=== PATIENT | male | born 1950 ===

== ENCOUNTER 2020-02-25 17:53 | Inpatient (IN) | payer MEDICARE ==
[2020-02-25] MEDS ORDERED: SODIUM CHLORIDE 0.9% 1000 ML 1,000 ML IV ONE ×2 (19:38→22:20)
--- NOTE | 2020-02-25 19:42 | Emergency Department Report ---
ED Altered Mental Status HPI - General Chief Complaint: Altered Mental Status Stated Complaint: AMS PUI?: No Time Seen by Provider: 02/25/20 19:37 Source: patient, EMS Mode of arrival: Stretcher Limitations: Altered Mental Status - History of Present Illness Initial Comments: Patient is a 69-year-old male that presents emergency room for altered mental status. Patient was brought over from a local long term named [facility]. The staff at [facility] called EMS because the patient become less verbal and more altered over the last 2 days. Patient was brought in by EMS. EMS states the patient was initially hypoxic and placed on 2 L. Patient declined is been going on for 2 days. Patient has been at [facility] for 2 weeks. Patient has a past medical history of asthma, bipolar and schizophrenia. Patient is af ebrile. Patient states he has been sweating a lot. Patient denies fever. Patient denies cough. Patient denies fall. Patient denies headache. Patient denies blurry vision. Patient states he is tired. Patient complains of fatigue. Patient denies shortness of breath. Patient denies chest pain. Patient states he is compliant with his psych medications. Patient denies recent travel. Patient denies recent international travel. Patient denies exposure to the novel coronavirus. Patient denies sick contacts. Patient denies fever and chills. Patient denies cough. Patient denies diar roberto. Patient denies coming in contact with anybody with symptoms of the novel coronavirus. Complaint: altered mental status, confusion -: Sudden Severity: severe Consistency of Symptoms: waxing and waning Associated Symptoms: diaphoresis - Related Data Allergies Allergy/AdvReac Type Severity Reaction Status Date / Time No Known Allergies Allergy Unverified 02/25/20 21:12 ED Review of Systems ROS: Stated complaint: AMS Other details as noted in HPI Comment: Unobtainable due to pts medical conditions ED Past Medical Hx - Past Medical History Previous Medical History?: Yes Hx Psychiatric Treatment: Yes (schizo/bipolar) Hx Asthma: Yes - Surgical History Past Surgical History?: No Hx Coronary Stent: No - Family History Family history: no significant - Social History Smoking Status: Current Every Day Smoker Substance Use Type: None ED Physical Exam - General Limitations: Altered Mental Status General appearance: alert, in no apparent distress - Head Head exam: Present: atraumatic, normocephalic - Eye Eye exam: Present: normal appearance - ENT ENT exam: Present: mucous membranes moist - Neck Neck exam: Present: normal inspection - Respiratory Respiratory exam: Present: normal lung sounds bilaterally. Absent: respiratory distress - Cardiovascular Cardiovascular Exam: Present: regular rate, normal rhythm. Absent: systolic murmur, diastolic murmur, rubs, gallop - GI/Abdominal GI/Abdominal exam: Present: soft, normal bowel sounds - Rectal Rectal exam: Present: deferred - Extremities Exam Extremities exam: Present: normal inspection - Back Exam Back exam: Present: normal inspection - Neurological Exam Neurological exam: Present: alert, oriented X3 - Psychiatric Psychiatric exam: Present: flat affect - Skin Skin exam: Present: warm, dry, intact, normal color. Absent: rash - Assessment Assessment Interval: Baseline - Level of Consciousness 1a. Level of Consciousness: alert/keenly responsive - LOC Questions 1b. LOC Questions: answers both correctly - LOC Command 1c. LOC Commands: performs tasks correctly - Best Gaze 2. Best Gaze: normal - Visual 3. Visual: no visual loss - Facial Palsy 4. Facial Palsy: normal symmetrical movement - Motor Arm 5a. Motor Arm Left: no drift 5b. Motor Arm Right: no drift - Motor Leg 6a. Motor Leg Left: no drift 6b. Motor Leg Right: no drift - Limb Ataxia 7. Limb Ataxia: absent - Sensory 8. Sensory: normal - Best Language 9. Best Language: no aphasia - Dysarthria 10. Dysarthria: normal - Extinction and Inattention 11. Extinction/Inattention: no abnormality - Scoring Total Score: 0 Stroke Severity: No Stroke Symptoms ED Course Vital Signs 02/25/20 02/25/20 02/25/20 19:33 19:42 20:00 Temperature 98.6 F Pulse Rate 94 H 91 H 86 Respiratory 40 H 41 H 35 H Rate Blood Pressure 143/79 Blood Pressure 143/79 [right arm] O2 Sat by Pulse 96 94 Oximetry 02/25/20 02/25/20 02/25/20 21:00 22:00 23:22 Temperature Pulse Rate 90 82 81 Respiratory 38 H 29 H 34 H Rate Blood Pressure 139/85 137/75 139/85 Blood Pressure [right arm] O2 Sat by Pulse 96 88 98 Oximetry 02/25/20 02/26/20 23:36 00:00 Temperature Pulse Rate 82 85 Respiratory 34 H 33 H Rate Blood Pressure 145/88 137/85 Blood Pressure [right arm] O2 Sat by Pulse 98 98 Oximetry - Reevaluation(s) Reevaluation #1: Patient answering questions appropriately. Patient is lethargic. Patient is arousable and is currently oriented x3. Patient's oxygen is at 90 to 93%. Patient placed on O2. 02/25/20 20:24 Reevaluation #2: Patient's oxygen sat is better. Patient resting in bed. Patient arousable. I discussed all results with patient. I discussed plan of care with patient. Patient agrees with plan of care and admission. Patient to be admitted to the hospitalist service. 02/25/20 22:24 - Consultations Consultation #1: Hospitalist consulted for admission. Hospitalist to admit patient. 02/25/20 22:28 Consultation #2: ID consult placed. 02/25/20 22:35 - Lab Data Result diagrams: 02/25/20 20:16 02/25/20 23:03 Lab Results 02/25/20 02/25/20 02/25/20 Range/Units 20:16 20:16 20:16 WBC 6.3 (4.5-11.0) K/mm3 RBC 4.26 (3.65-5.03) M/mm3 Hgb 11.7 L (11.8-15.2) gm/dl Hct 35.3 L (35.5-45.6) % MCV 83 L (84-94) fl MCH 27 L (28-32) pg MCHC 33 (32-34) % RDW 17.2 H (13.2-15.2) % Plt Count 208 (140-440) K/mm3 Lymph % (Auto) 8.0 L (13.4-35.0) % [place] % (Auto) 8.5 H (0.0-7.3) % Eos % (Auto) 0.0 (0.0-4.3) % Baso % (Auto) 0.1 (0.0-1.8) % Lymph # 0.5 L (1.2-5.4) K/mm3 [place] # 0.5 (0.0-0.8) K/mm3 Eos # 0.0 (0.0-0.4) K/mm3 Baso # 0.0 (0.0-0.1) K/mm3 Seg Neutrophils % 83.4 H (40.0-70.0) % Seg Neutrophils # 5.3 (1.8-7.7) K/mm3 Sodium 135 L (137-145) mmol/L Potassium 3.9 (3.6-5.0) mmol/L Chloride 101.7 (98-107) mmol/L Carbon Dioxide 21 L (22-30) mmol/L Anion Gap 16 mmol/L BUN 22 H (9-20) mg/dL Creatinine 1.3 (0.8-1.5) mg/dL Estimated GFR 55 ml/min BUN/Creatinine Ratio 17 % Glucose 176 H (75-100) mg/dL Lactic Acid 1.60 (0.7-2.0) mmol/L Calcium 8.0 L (8.4-10.2) mg/dL Total Bilirubin 0.50 (0.1-1.2) mg/dL AST 32 (5-40) units/L ALT 19 (7-56) units/L Alkaline Phosphatase 33 L (35-129) units/L Ammonia (25-60) umol/L Total Creatine Kinase 1034 H (55-170) units/L Troponin T < 0.010 (0.00-0.029) ng/mL Total Protein 5.9 L (6.3-8.2) g/dL Albumin 3.5 L (3.9-5) g/dL Albumin/Globulin Ratio 1.5 % Urine Color (Yellow) Urine Turbidity (Clear) Urine pH (5.0-7.0) Ur Specific [place] (1.003-1.030) Urine Protein (Negative) mg/dL Urine Glucose (UA) (Negative) mg/dL Urine Ketones (Negative) mg/dL Urine Blood (Negative) Urine Nitrite (Negative) Urine Bilirubin (Negative) Urine Urobilinogen (<2.0) mg/dL Ur Leukocyte Esterase (Negative) Urine WBC (Auto) (0.0-6.0) /HPF Urine RBC (Auto) (0.0-6.0) /HPF Urine Mucus /HPF Urine Yeast (Budding) /HPF Salicylates (2.8-20.0) mg/dL Acetaminophen (10.0-30.0) ug/mL Plasma/Serum Alcohol (0-0.07) % 02/25/20 02/25/2020 Range/Units 20:16 20:16 20:16 WBC (4.5-11.0) K/mm3 RBC (3.65-5.03) M/mm3 Hgb (11.8-15.2) gm/dl Hct (35.5-45.6) % MCV (84-94) fl MCH (28-32) pg MCHC (32-34) % RDW (13.2-15.2) % Plt Count (140-440) K/mm3 Lymph % (Auto) (13.4-35.0) % [place] % (Auto) (0.0-7.3) % Eos % (Auto) (0.0-4.3) % Baso % (Auto) (0.0-1.8) % Lymph # (1.2-5.4) K/mm3 [place] # (0.0-0.8) K/mm3 Eos # (0.0-0.4) K/mm3 Baso # (0.0-0.1) K/mm3 Seg Neutrophils % (40.0-70.0) % Seg Neutrophils # (1.8-7.7) K/mm3 Sodium (137-145) mmol/L Potassium (3.6-5.0) mmol/L Chloride (98-107) mmol/L Carbon Dioxide (22-30) mmol/L Anion Gap mmol/L BUN (9-20) mg/dL Creatinine (0.8-1.5) mg/dL Estimated GFR ml/min BUN/Creatinine Ratio % Glucose (75-100) mg/dL Lactic Acid (0.7-2.0) mmol/L Calcium (8.4-10.2) mg/dL Total Bilirubin (0.1-1.2) mg/dL AST (5-40) units/L ALT (7-56) units/L Alkaline Phosphatase (35-129) units/L Ammonia 42.0 (25-60) umol/L Total Creatine Kinase (55-170) units/L Troponin T (0.00-0.029) ng/mL Total Protein (6.3-8.2) g/dL Albumin (3.9-5) g/dL Albumin/Globulin Ratio % Urine Color (Yellow) Urine Turbidity (Clear) Urine pH (5.0-7.0) Ur Specific [place] (1.003-1.030) Urine Protein (Negative) mg/dL Urine Glucose (UA) (Negative) mg/dL Urine Ketones (Negative) mg/dL Urine Blood (Negative) Urine Nitrite (Negative) Urine Bilirubin (Negative) Urine Urobilinogen (<2.0) mg/dL Ur Leukocyte Esterase (Negative) Urine WBC (Auto) (0.0-6.0) /HPF Urine RBC (Auto) (0.0-6.0) /HPF Urine Mucus /HPF Urine Yeast (Budding) /HPF Salicylates < 0.3 L (2.8-20.0) mg/dL Acetaminophen < 5.0 L (10.0-30.0) ug/mL Plasma/Serum Alcohol (0-0.07) % 02/25/20 02/25/20 Range/Units 20:16 21:12 WBC (4.5-11.0) K/mm3 RBC (3.65-5.03) M/mm3 Hgb (11.8-15.2) gm/dl Hct (35.5-45.6) % MCV (84-94) fl MCH (28-32) pg MCHC (32-34) % RDW (13.2-15.2) % Plt Count (140-440) K/mm3 Lymph % (Auto) (13.4-35.0) % [place] % (Auto) (0.0-7.3) % Eos % (Auto) (0.0-4.3) % Baso % (Auto) (0.0-1.8) % Lymph # (1.2-5.4) K/mm3 [place] # (0.0-0.8) K/mm3 Eos # (0.0-0.4) K/mm3 Baso # (0.0-0.1) K/mm3 Seg Neutrophils % (40.0-70.0) % Seg Neutrophils # (1.8-7.7) K/mm3 Sodium (137-145) mmol/L Potassium (3.6-5.0) mmol/L Chloride (98-107) mmol/L Carbon Dioxide (22-30) mmol/L Anion Gap mmol/L BUN (9-20) mg/dL Creatinine (0.8-1.5) mg/dL Estimated GFR ml/min BUN/Creatinine Ratio % Glucose (75-100) mg/dL Lactic Acid (0.7-2.0) mmol/L Calcium (8.4-10.2) mg/dL Total Bilirubin (0.1-1.2) mg/dL AST (5-40) units/L ALT (7-56) units/L Alkaline Phosphatase (35-129) units/L Ammonia (25-60) umol/L Total Creatine Kinase (55-170) units/L Troponin T (0.00-0.029) ng/mL Total Protein (6.3-8.2) g/dL Albumin (3.9-5) g/dL Albumin/Globulin Ratio % Urine Color Yellow (Yellow) Urine Turbidity Clear (Clear) Urine pH 6.0 (5.0-7.0) Ur Specific [place] 1.023 (1.003-1.030) Urine Protein 100 mg/dl (Negative) mg/dL Urine Glucose (UA) 50 (Negative) mg/dL Urine Ketones Neg (Negative) mg/dL Urine Blood Lg (Negative) Urine Nitrite Neg (Negative) Urine Bilirubin Neg (Negative) Urine Urobilinogen 4.0 (<2.0) mg/dL Ur Leukocyte Esterase Tr (Negative) Urine WBC (Auto) 24.0 H (0.0-6.0) /HPF Urine RBC (Auto) 2.0 (0.0-6.0) /HPF Urine Mucus Few /HPF Urine Yeast (Budding) Few /HPF Salicylates (2.8-20.0) mg/dL Acetaminophen (10.0-30.0) ug/mL Plasma/Serum Alcohol < 0.01 (0-0.07) % - EKG Data -: EKG Interpreted by [facility] EKG shows normal: sinus rhythm, axis, intervals, QRS complexes, ST-T waves Rate: normal - Radiology Data Radiology results: report reviewed, image reviewed interpreted by me: CHEST 1 VIEW INDICATION: Altered Mental Status. COMPARISON: None. FINDINGS: Support devices: None. Heart: Normal. Lungs/Pleura: There is focal airspace disease in the inferior right upper lobe adjacent to the minor fissure. Minimal right infrahilar opacities are noted as well. The left lung is clear. No pleural effusion or pneumothorax. IMPRESSION: 1. Patchy right lung airspace disease, as above, is concerning for pneumonia. CT ABDOMEN AND PELVIS WITHOUT IV CONTRAST INDICATION: fever. uti.. COMPARISON: CT 12/04/2018. TECHNIQUE: All CT scans at this facility use dose modulation, automated exposure control, iterative reconstruction or weight based dosing, when appropriate, to reduce radiation dose to as low as reasonably achievable. FINDINGS: Lung Bases: There is a small right pleural effusion with compressive atelectasis in the dependent right lung base. Left lung base is clear. Skeletal System: No acute abnormality. ABDOMEN: Liver: No significant abnormality. Gallbladder: There is a 1.3 cm gallstone. The gallbladder is partially contracted. There is mild gallbladder wall thickening and pericholecystic inflammation. Bile Ducts: No significant abnormality. Pancreas: No significant abnormality. Spleen: Mildly enlarged. Adrenals: Bilateral adrenal nodules are stable. Right Kidney: No significant abnormality. Left Kidney: No significant abnormality. Upper GI tract: Gastrostomy tube is noted in satisfactory position. Lymph Nodes: No significant adenopathy. Aorta: No significant abnormality. Additional Findings: No significant abnormality. PELVIS: Colon: No acute abnormality. Urinary Bladder and Distal Ureters: There is mild bladder wall thickening with minimal perivesical stranding. There is a trace amount of gas in the nondependent bladder. Appendix: No significant abnormality. Lymph Nodes: No significant adenopathy. Additional Findings: Prostate is mildly enlarged. IMPRESSION: 1. Mild bladder wall thickening and perivesical stranding could be seen in cystitis. There is a trace amount of gas in the bladder which could be related to infection or recent instrumentation. 2. Cholelithiasis. Gallbladder shows mild wall thickening and mild pericholecystic stranding. Correlate clinically for acute cholecystitis. No common duct dilatation is seen. 3. Additional, incidental findings as above. - Medical Decision Making Patient is a 69-year-old male that presents emergency room from his long term via EMS for altered mental status. Patient's only complaint was diaphoresis. Patient is lethargic. Patient had an altered mental status work-up to include chest x-ray, labs and CT of the head. CT of the head was negative for acute findings. Patient's chest x-ray shows right-sided pneumonia. Patient's labs were essentially unremarkable except for elevated inflammatory markers and UTI. Patient had the COVID protocols started. ID was consulted. Patient given cefepime and fluids. Patient also found to be hypoxic and was placed on oxygen at initial evaluation. - Differential Diagnosis ams. diaphoresis, uti, pna. Critical Care Time: Yes Critical care time in (mins) excluding proc time.: 35 Critical care attestation.: If time is entered above; I have spent that time in minutes in the direct care of this critically ill patient, excluding procedure time. Critical Care Time: 35 minutes ED Disposition Clinical Impression: Diaphoresis, Dehydration, Elevated CK, Hypoxia Pneumonia Qualifiers: Pneumonia type: due to unspecified organism Laterality: unspecified laterality Lung location: unspecified part of lung Qualified Code(s): J18.9 - Pneumonia, unspecified organism Altered mental state Qualifiers: Altered mental status type: unspecified Qualified Code(s): R41.82 - Altered mental status, unspecified UTI (urinary tract infection) Qualifiers: Urinary tract infection type: acute cystitis Hematuria presence: with hematuria Qualified Code(s): N30.01 - Acute cystitis with hematuria Disposition: 09 OP ADMIT IP TO THIS HOSP Is pt being admited?: Yes Does the pt Need Aspirin: No Condition: Critical Time of Disposition: 22:35
--- NOTE | 2020-02-25 20:13 | XRay Report ---
CHEST 1 VIEW INDICATION: Altered Mental Status. COMPARISON: None. FINDINGS: Support devices: None. Heart: Normal. Lungs/Pleura: There is focal airspace disease in the inferior right upper lobe adjacent to the minor fissure. Minimal right infrahilar opacities are noted as well. The left lung is clear. No pleural eff usion or pneumothorax. IMPRESSION: 1. Patchy right lung airspace disease, as above, is concerning for pneumonia. Signer Name: Adonay Castillo MD Signed: 02/25/2020 8:08 PM Workstation Name: [id number]
[2020-02-25 20:37] LABS: Basophils % (Auto) 0.1 % (0.0-1.8); Hematocrit 35.3 % (35.5-45.6); Hemoglobin 11.7 gm/dl (11.8-15.2); Lymphocytes # (Auto) 0.5 K/mm3 (1.2-5.4); Mean Corpuscular HGB Conc 33 % (32-34); Mean Corpuscular Volume 83 fl (84-94); Monocytes # (Auto) 0.5 K/mm3 (0.0-0.8); Monocytes % (Auto) 8.5 % (0.0-7.3); Platelet Count 208 K/mm3 (140-440); Red Blood Count 4.26 M/mm3 (3.65-5.03); Red Cell Distribution Width 17.2 % (13.2-15.2)
[2020-02-25 20:47] LABS: Alanine Aminotransferase 19 units/L (7-56); Albumin 3.5 g/dL (3.9-5); BUN/Creatinine Ratio 17; Blood Urea Nitrogen 22 mg/dL (9-20); Hemolysis Index 4
--- NOTE | 2020-02-25 21:26 | Cat Scan Report ---
CT HEAD WITHOUT CONTRAST INDICATION / CLINICAL INFORMATION: Altered Mental Status. TECHNIQUE: All CT scans at this location are performed using CT dose reduction for ALARA by means of automated e xposure control. COMPARISON: None available. FINDINGS: HEMORRHAGE: No evidence of intracranial hemorrhage or extra-axial fluid collection. EXTRA-AXIAL SPACES: Cortical sulci and sylvian fissures are mildly enlarged reflecting a degree of pa renchymal volume loss which is within somewhat greater than expected for the patient's age of 69 year s. Basilar cisterns have an unremarkable appearance. VENTRICULAR SYSTEM: The third and lateral ventricles are mildly enlarged reflecting presence of mild parenchymal volume loss. CEREBRAL PARENCHYMA: Periventricular and deep white matter lucency is observed. This is probably seco ndary to microvascular ischemic change. There is no indication of recent infarction. No areas of ence phalomalacia are identified. MIDLINE SHIFT OR HERNIATION: There is no mass effect. CEREBELLUM / BRAINSTEM: Brainstem and cerebellum have an unremarkable appearance. INTRACRANIAL VESSELS: No abnormalities are identified on this noncontrast head CT examination. ORBITS: visualized portions of the orbits have an unremarkable appearance. SOFT TISSUES of HEAD: No significant abnormality. CALVARIUM: Evaluation of bone windows reveals no abnormalities. PARANASAL SINUSES / MASTOID AIR CELLS: Paranasal sinuses are free from inflammatory mucosal disease. Opacification of multiple mastoid air cells is noted. In addition there is abnormal attenuation in th e epitympanic region of the left middle ear cavity. Possibility of mastoiditis and otitis media shoul d be considered. IMPRESSION: 1. No acute intracranial abnormality. 2. Opacification of multiple mastoid air cells and increased attenuation in the epitympanic region of the left middle ear cavity. Consider the possibility of mastoiditis and left-sided otitis media. Signer Name: Milton Falk MD Signed: 02/25/2020 9:22 PM Workstation Name: [id number]
[2020-02-25 21:28] LABS: Amphetamine Screen,Urine PRESUMPTIVE NEGATIVE; Benzodiazepines Screen,Urine PRESUMPTIVE NEGATIVE; Cannabinoid Screen,Urine PRESUMPTIVE NEGATIVE; Cocaine Screen,Urine PRESUMPTIVE NEGATIVE; Methadone Screen,Urine PRESUMPTIVE NEGATIVE; Opiate Screen,Urine PRESUMPTIVE NEGATIVE
[2020-02-25 21:30] LABS: Bilirubin,Urine NEG (Negative); Blood,Urine LG (Negative); Color,Urine Yellow (Yellow); Mucus,Urine FEW /HPF
[2020-02-25] MEDS ORDERED: CEFEPIME/NS 2 GM/100 ML 2 GM/100 ML BAG IV ONE ×2 (22:20→23:27)
[2020-02-25] MEDS ORDERED: SODIUM CHLORIDE 0.9% 1000 ML 1,000 ML ONE (23:27)
[2020-02-25] MEDS ORDERED: MAGNESIUM HYDROXIDE (MOM) ORAL LIQD UDC PO PRN (23:51)
[2020-02-25] MEDS ORDERED: ONDANSETRON 4 MG/2 ML INJ IV PRN (23:51)
[2020-02-26 00:41] LABS: C-Reactive Protein 5.5 mg/dL (0.00-1.30)
[2020-02-26] MEDS: SODIUM CHLORIDE 0.9% 1000 ML 1,000 ML IV SCH ×2 (00:44→09:59)
[2020-02-26] MEDS ORDERED: ALBUTEROL 2.5 MG/3 ML NEBU IH PRN (02:29)
[2020-02-26] MEDS ORDERED: ALBUTEROL 2.5 MG/3 ML NEBU IH ONE (02:32)
--- NOTE | 2020-02-26 04:04 | History and Physical Report ---
History of Present Illness Date of examination: 02/26/20 Date of admission: 02/25/20 22:37 Chief complaint: Altered mental status History of present illness: 69-year-old male resident of [facility] brought into the emergency room today for altered mental status. Staff of the [facility] was said to have called EMS because patient has had some changes in his mental status. Patient was said to have become less responsive over the past 2 days. He has significant past medical history of asthma schizophrenia and bipolar disorder. He denies any fever or chills, denies any cough or shortness of breath, no chest pain, denies any headache or dizziness and denies any recent fall. He denies any sick contacts and no recent travel, denies any contact with anyone with COVID-19 Work-up in the emergency room was however significant for pneumonia and UTI. He has been started on empiric IV antibiotics. Past History Past Medical History: other (History of asthma, schizophrenia) Past Surgical History: No surgical history Social history: smoking (Delay), other (Resident of a [facility]) Medications and Allergies Allergies Allergy/AdvReac Type Severity Reaction Status Date / Time No Known Allergies Allergy Unverified 02/25/20 21:12 Home Medications Medication Instructions Recorded Confirmed Last Taken Type Divalproex ER [DepaKOTE ER] 500 mg PO QDAY 02/26/20 02/26/20 Unknown History Omeprazole 20 mg PO BID 02/26/20 02/26/20 Unknown History Active Meds: Active Medications Acetaminophen (Tylenol) 650 mg PO Q4H PRN PRN Reason: Pain MILD(1-3)/Fever >100.5/RAMOS Albuterol (Proventil) 2.5 mg IH Q4HRT PRN PRN Reason: Shortness Of Breath Sodium Chloride (Nacl 0.9% 1000 Ml) 1,000 mls @ 125 mls/hr IV DIRECT SABA Last Admin: 02/26/20 00:44 Dose: 125 mls/hr Documented by: Ceftriaxone Sodium (Rocephin/Ns 2 Gm/100 Ml) 2 gm in 100 mls @ 200 mls/hr IV Q24HR SABA; Protocol Azithromycin 500 mg/ Sodium (Chloride) 250 mls @ 250 mls/hr IV Q24HR SABA; Protocol Magnesium Hydroxide (Milk Of Magnesia) 30 ml PO Q4H PRN PRN Reason: Constipation Ondansetron HCl (Zofran) 4 mg IV Q8H PRN PRN Reason: Nausea And Vomiting Sodium Chloride (Sodium Chloride Flush Syringe 10 Ml) 10 ml IV BID SABA Sodium Chloride (Sodium Chloride Flush Syringe 10 Ml) 10 ml IV PRN PRN PRN Reason: LINE FLUSH Review of Systems Constitutional: no fever, no chills Ears, nose, mouth and throat: no headache, no vertigo Respiratory: cough, shortness of breath Gastrointestinal: no abdominal pain, no nausea, no vomiting, no diarrhea Genitourinary Male: no dysuria, no hematuria Musculoskeletal: no neck pain, no low back pain Integumentary: no rash, no pruritis Neurological: change in mentation, no headaches Exam - Constitutional Vitals: Temp Pulse Resp BP Pulse Ox 98.6 F 85 28 H 137/85 97 02/25/20 19:33 02/26/20 02:37 02/26/20 02:37 02/26/20 00:00 02/26/20 01:35 General appearance: Present: no acute distress, well-nourished - EENT Eyes: Present: PERRL, EOM intact ENT: hearing intact, clear oral mucosa, dentition normal - Neck Neck: Present: supple, normal ROM - Respiratory Respiratory effort: normal Respiratory: bilateral: diminished - Cardiovascular Rhythm: regular Heart Sounds: Present: S1 & S2 - Extremities Extremities: no ischemia, pulses intact, No edema, Full ROM Peripheral Pulses: within normal limits - Abdominal General gastrointestinal: Present: soft, non-tender, non-distended, normal bowel sounds - Integumentary Integumentary: Present: clear, warm, dry - Musculoskeletal Musculoskeletal: strength equal bilaterally - Psychiatric Psychiatric: appropriate mood/affect, intact judgment & insight, cooperative - Neurologic Neurologic: CNII-XII intact, moves all extremities HEART Score - HEART Score Troponin: Troponin T < 0.010 ng/mL (0.00-0.029) 02/25/20 20:16 Results - Labs CBC & Chem 7: 02/26/20 03:57 02/26/20 03:57 Labs: Abnormal lab results 02/25/20 02/25/20 02/25/20 Range/Units 20:16 20:16 20:16 Hgb 11.7 L (11.8-15.2) gm/dl Hct 35.3 L (35.5-45.6) % MCV 83 L (84-94) fl MCH 27 L (28-32) pg RDW 17.2 H (13.2-15.2) % Lymph % (Auto) 8.0 L (13.4-35.0) % [place] % (Auto) 8.5 H (0.0-7.3) % Lymph # 0.5 L (1.2-5.4) K/mm3 Seg Neutrophils % 83.4 H (40.0-70.0) % D-Dimer (0-234) ng/mlDDU Sodium 135 L (137-145) mmol/L Carbon Dioxide 21 L (22-30) mmol/L BUN 22 H (9-20) mg/dL Glucose 176 H (75-100) mg/dL Calcium 8.0 L (8.4-10.2) mg/dL Alkaline Phosphatase 33 L (35-129) units/L Lactate Dehydrogenase (91-180) units/L Total Creatine Kinase 1034 H (55-170) units/L C-Reactive Protein (0.00-1.30) mg/dL Total Protein 5.9 L (6.3-8.2) g/dL Albumin 3.5 L (3.9-5) g/dL Urine WBC (Auto) (0.0-6.0) /HPF Salicylates < 0.3 L (2.8-20.0) mg/dL Acetaminophen (10.0-30.0) ug/mL 02/25/20 02/25/20 02/25/20 Range/Units 20:16 21:12 23:03 Hgb (11.8-15.2) gm/dl Hct (35.5-45.6) % MCV (84-94) fl MCH (28-32) pg RDW (13.2-15.2) % Lymph % (Auto) (13.4-35.0) % [place] % (Auto) (0.0-7.3) % Lymph # (1.2-5.4) K/mm3 Seg Neutrophils % (40.0-70.0) % D-Dimer (0-234) ng/mlDDU Sodium (137-145) mmol/L Carbon Dioxide (22-30) mmol/L BUN (9-20) mg/dL Glucose 144 H (75-100) mg/dL Calcium (8.4-10.2) mg/dL Alkaline Phosphatase (35-129) units/L Lactate Dehydrogenase 308 H (91-180) units/L Total Creatine Kinase (55-170) units/L C-Reactive Protein 5.50 H (0.00-1.30) mg/dL Total Protein (6.3-8.2) g/dL Albumin (3.9-5) g/dL Urine WBC (Auto) 24.0 H (0.0-6.0) /HPF Salicylates (2.8-20.0) mg/dL Acetaminophen < 5.0 L (10.0-30.0) ug/mL 02/25/20 Range/Units 23:03 Hgb (11.8-15.2) gm/dl Hct (35.5-45.6) % MCV (84-94) fl MCH (28-32) pg RDW (13.2-15.2) % Lymph % (Auto) (13.4-35.0) % [place] % (Auto) (0.0-7.3) % Lymph # (1.2-5.4) K/mm3 Seg Neutrophils % (40.0-70.0) % D-Dimer 1216.06 H (0-234) ng/mlDDU Sodium (137-145) mmol/L Carbon Dioxide (22-30) mmol/L BUN (9-20) mg/dL Glucose (75-100) mg/dL Calcium (8.4-10.2) mg/dL Alkaline Phosphatase (35-129) units/L Lactate Dehydrogenase (91-180) units/L Total Creatine Kinase (55-170) units/L C-Reactive Protein (0.00-1.30) mg/dL Total Protein (6.3-8.2) g/dL Albumin (3.9-5) g/dL Urine WBC (Auto) (0.0-6.0) /HPF Salicylates (2.8-20.0) mg/dL Acetaminophen (10.0-30.0) ug/mL Assessment and Plan - Patient Problems (1) Pneumonia Current Visit: Yes Status: Acute Qualifiers: Pneumonia type: due to unspecified organism Laterality: unspecified laterality Lung location: unspecified part of lung Qualified Code(s): J18.9 - Pneumonia, unspecified organism Plan to address problem: Patient placed on empiric IV antibiotics. We await blood culture result. (2) UTI (urinary tract infection) Current Visit: Yes Status: Acute Qualifiers: Urinary tract infection type: acute cystitis Hematuria presence: with hematuria Qualified Code(s): N30.01 - Acute cystitis with hematuria Plan to address problem: We await urine culture result and continue empiric IV antibiotics. (3) Altered mental state Current Visit: Yes Status: Acute Qualifiers: Altered mental status type: unspecified Qualified Code(s): R41.82 - Altered mental status, unspecified Plan to address problem: Possibly secondary to the pneumonia and UTI. Will monitor mental status (4) DVT prophylaxis Current Visit: Yes Status: Acute Plan to address problem: Patient placed on subcutaneous heparin. (5) Full code status Current Visit: Yes Status: Acute (6) Hypoxia Current Visit: Yes Status: Acute
[2020-02-26 05:33] LABS: Basophils % (Auto) 0.2 % (0.0-1.8); Eosinophils % (Auto) 0.1 % (0.0-4.3); Hematocrit 32.8 % (35.5-45.6); Hemoglobin 10.9 gm/dl (11.8-15.2); Lymphocytes # (Auto) 0.6 K/mm3 (1.2-5.4); Lymphocytes % (Auto) 10.3 % (13.4-35.0); Mean Corpuscular HGB Conc 33 % (32-34); Mean Corpuscular Volume 83 fl (84-94); Monocytes # (Auto) 0.3 K/mm3 (0.0-0.8); Monocytes % (Auto) 5.7 % (0.0-7.3); Platelet Count 199 K/mm3 (140-440); Red Blood Count 3.95 M/mm3 (3.65-5.03); Red Cell Distribution Width 17.6 % (13.2-15.2)
[2020-02-26 05:48] LABS: BUN/Creatinine Ratio 18; Blood Urea Nitrogen 18 mg/dL (9-20); Hemolysis Index 2
[2020-02-26 05:53] LABS: INR 1.09 (0.87-1.13)
--- NOTE | 2020-02-26 09:37 | Consultation ---
History of Present Illness - Reason for Consult Consult date: 02/26/20 r/o COVID Requesting physician: PERFECTO GUY III - History of Present Illness 69 years old male with history of asthma, bipolar disorder and schizophrenia, resident of a shelter, admitted on 02/25/2020 due to 48 hours history of altered mental status with confusion. EMS found patient hypoxic at the scene and placing on 2 L nasal cannula. Patient is unable to provide any history, currently alert but very confused. On arrival, temperature 98.6, HR 94, RR 40, O2 96, BP 113/79. WBC 6.3. Hg 11.7. Platelets 208. Creatinine 1.3. CRP 5.5. LDH 308. Ferritin 117. D-dimer 1216. UDS negative. COVID test positive. Chest x-ray right patchy infiltrates. CT of the head left opacification of the mastoid and increased attenuation of the left tympanic membrane cavity. UA with 24 white blood cells on trace leukocyte esterase. Urine culture with usual skin tanya 10-100K Review of system: Unable to obtain Past History Past Medical History: other (History of asthma, schizophrenia) Past Surgical History: No surgical history Social history: smoking (Delay), other (Resident of a shelter) Medications and Allergies Allergies Allergy/AdvReac Type Severity Reaction Status Date / Time No Known Allergies Allergy Unverified 02/25/20 21:12 Home Medications Medication Instructions Recorded Confirmed Last Taken Type Divalproex ER [DepaKOTE ER] 500 mg PO QDAY 02/26/20 02/26/20 Unknown History Omeprazole 20 mg PO BID 02/26/20 02/26/20 Unknown History Active Meds: Active Medications Acetaminophen (Tylenol) 650 mg PO Q4H PRN PRN Reason: Pain MILD(1-3)/Fever >100.5/RAMOS Albuterol (Proventil) 2.5 mg IH Q4HRT PRN PRN Reason: Shortness Of Breath Azithromycin (Zithromax) 500 mg PO QDAY SABA Stop: 03/01/20 10:01 Divalproex Sodium (Depakote Er) 500 mg PO QDAY SABA Heparin Sodium (Porcine) (Heparin) 5,000 unit SUB-Q Q8HR SABA Sodium Chloride (Nacl 0.9% 1000 Ml) 1,000 mls @ 125 mls/hr IV DIRECT SABA Last Admin: 02/26/20 00:44 Dose: 125 mls/hr Documented by: Ceftriaxone Sodium (Rocephin/Ns 2 Gm/100 Ml) 2 gm in 100 mls @ 200 mls/hr IV Q24HR SABA; Protocol Azithromycin 500 mg/ Sodium (Chloride) 250 mls @ 250 mls/hr IV Q24HR SABA; Protocol Stop: 02/26/20 18:00 Magnesium Hydroxide (Milk Of Magnesia) 30 ml PO Q4H PRN PRN Reason: Constipation Ondansetron HCl (Zofran) 4 mg IV Q8H PRN PRN Reason: Nausea And Vomiting Pantoprazole Sodium (Protonix) 20 mg PO BID SABA Sodium Chloride (Sodium Chloride Flush Syringe 10 Ml) 10 ml IV BID SABA Sodium Chloride (Sodium Chloride Flush Syringe 10 Ml) 10 ml IV PRN PRN PRN Reason: LINE FLUSH Physical Examination - Physical Exam Narrative exam: General appearance: Alert confused does not follow commands Eyes: Pupils equal reactive bilaterally HENT: Atraumatic; oropharynx limited Lungs: Clear to auscultation CV: RRR Abdomen: Soft nontender Extremities: No edema Skin: No rash. Scrotum with large edema Psych: alert confused Neuro: Slightly sleepy confused - Constitutional Vitals: Vital Signs Temp Pulse Resp BP Pulse Ox 98.6 F 85 28 H 137/85 97 02/25/20 19:33 02/26/20 02:37 02/26/20 02:37 02/26/20 00:00 02/26/20 01:35 Temperature -Last 24 Hours Temperature 98.6 F Results - Labs CBC & Chem 7: 02/26/20 03:57 02/26/20 03:57 Labs: Abnormal lab results 02/25/20 02/25/20 02/25/20 Range/Units 20:16 20:16 20:16 Hgb 11.7 L (11.8-15.2) gm/dl Hct 35.3 L (35.5-45.6) % MCV 83 L (84-94) fl MCH 27 L (28-32) pg RDW 17.2 H (13.2-15.2) % Lymph % (Auto) 8.0 L (13.4-35.0) % Iron % (Auto) 8.5 H (0.0-7.3) % Lymph # 0.5 L (1.2-5.4) K/mm3 Seg Neutrophils % 83.4 H (40.0-70.0) % D-Dimer (0-234) ng/mlDDU Sodium 135 L (137-145) mmol/L Carbon Dioxide 21 L (22-30) mmol/L BUN 22 H (9-20) mg/dL Glucose 176 H (75-100) mg/dL Calcium 8.0 L (8.4-10.2) mg/dL Alkaline Phosphatase 33 L (35-129) units/L Lactate Dehydrogenase (91-180) units/L Total Creatine Kinase 1034 H (55-170) units/L C-Reactive Protein (0.00-1.30) mg/dL Total Protein 5.9 L (6.3-8.2) g/dL Albumin 3.5 L (3.9-5) g/dL Urine WBC (Auto) (0.0-6.0) /HPF Salicylates < 0.3 L (2.8-20.0) mg/dL Acetaminophen (10.0-30.0) ug/mL 02/25/20 02/25/20 02/25/20 Range/Units 20:16 21:12 23:03 Hgb (11.8-15.2) gm/dl Hct (35.5-45.6) % MCV (84-94) fl MCH (28-32) pg RDW (13.2-15.2) % Lymph % (Auto) (13.4-35.0) % Iron % (Auto) (0.0-7.3) % Lymph # (1.2-5.4) K/mm3 Seg Neutrophils % (40.0-70.0) % D-Dimer (0-234) ng/mlDDU Sodium (137-145) mmol/L Carbon Dioxide (22-30) mmol/L BUN (9-20) mg/dL Glucose 144 H (75-100) mg/dL Calcium (8.4-10.2) mg/dL Alkaline Phosphatase (35-129) units/L Lactate Dehydrogenase 308 H (91-180) units/L Total Creatine Kinase (55-170) units/L C-Reactive Protein 5.50 H (0.00-1.30) mg/dL Total Protein (6.3-8.2) g/dL Albumin (3.9-5) g/dL Urine WBC (Auto) 24.0 H (0.0-6.0) /HPF Salicylates (2.8-20.0) mg/dL Acetaminophen < 5.0 L (10.0-30.0) ug/mL 02/25/20 02/26/20 02/26/20 Range/Units 23:03 03:57 03:57 Hgb 10.9 L (11.8-15.2) gm/dl Hct 32.8 L (35.5-45.6) % MCV 83 L (84-94) fl MCH (28-32) pg RDW 17.6 H (13.2-15.2) % Lymph % (Auto) 10.3 L (13.4-35.0) % Iron % (Auto) (0.0-7.3) % Lymph # 0.6 L (1.2-5.4) K/mm3 Seg Neutrophils % 83.7 H (40.0-70.0) % D-Dimer 1216.06 H (0-234) ng/mlDDU Sodium (137-145) mmol/L Carbon Dioxide 20 L (22-30) mmol/L BUN (9-20) mg/dL Glucose 194 H (75-100) mg/dL Calcium 8.0 L (8.4-10.2) mg/dL Alkaline Phosphatase (35-129) units/L Lactate Dehydrogenase (91-180) units/L Total Creatine Kinase (55-170) units/L C-Reactive Protein (0.00-1.30) mg/dL Total Protein (6.3-8.2) g/dL Albumin (3.9-5) g/dL Urine WBC (Auto) (0.0-6.0) /HPF Salicylates (2.8-20.0) mg/dL Acetaminophen (10.0-30.0) ug/mL Assessment and Plan Cultures: Urine culture with usual skin tanya 10-100K Assessment: 69 years old male with history of asthma, bipolar disorder and schizophrenia, resident of a shelter, admitted on 02/25/2020 due to 48 hours history of altered mental status with confusion:: #Presumed COVID pneumonia: COVID test positive. There may be a component of bacterial pneumonia, pro-Justin 0.3. Chest x-ray with right patchy infiltrates. Inflammatory markers mildly elevated: Ferritin 117, d-dimer 1216, CRP 5.5. No evidence of severe COVID. Currently on 2 L nasal cannula oxygen #Acute encephalopathy: Likely due to COVID. CT shows possible left mastoiditis and left otitis media. #Left mastoiditis and left otitis media: Per CT #Mild UTI: Urine culture grew 10,000-100,000 colonies of usual skin tanya Recommendations: Continue COVID isolation precautions per [facility] protocol Continue ceftriaxone 2 g IV once a day and azithromycin 500 g IV once a day Obtain brain MRI Close monitor inflammatory markers for COVID, if ferritin over [address] Ledesma covering the weekend Will follow Linda Gottlieb MD Infectious Diseases [employer] [facility], [place], [facility] M [phone] O [phone]
[2020-02-26] MEDS: cefTRIAXone/NS 2 GM/100 ML 2 GM/100 ML BAG IV SCH (09:59)
[2020-02-26] MEDS ORDERED: AZITHROMYCIN 500 MG in SODIUM CHLORIDE 0.9% 250ML 250 ML IV SCH (10:00)
[2020-02-26] MEDS: DIVALPROEX ER 500 MG TAB PO SCH (10:00)
[2020-02-26] MEDS: PANTOPRAZOLE 20 MG TAB PO SCH ×2 (10:01→21:12)
[2020-02-26] MEDS: ACETAMINOPHEN 325 MG TAB PO PRN ×3 (11:39→21:30)
--- NOTE | 2020-02-26 13:28 | Progress Note ---
Assessment and Plan Assessment and plan: Sepsis. Etiology secondary to pneumonia and UTI. Follow-up blood and urine cultures. Right upper lobe pneumonia. Continue to follow serial chest x-ray and antibiotics. ID consulted. Acute hypoxemic respiratory failure. Etiology secondary to above. Continue O2 to maintain sats greater than 92%. BiPAP as clinically indicated. UTI. Continue IV antibiotics and follow-up urine cultures. Toxic metabolic encephalopathy. Etiology secondary to above. Continue to treat underlying cause. The high probability of a clinically significant, sudden or life threatening deterioration of the [respiratory and immunologic] system(s) required my full and direct attention, intervention and personal management. The aggregate critical care time was [32] minutes. This time is in addition to time spent p erforming reported procedures but includes the following: [x] Data Review and interpretation [x] Patient assessment and monitoring of vital signs [x] Documentation [x] Medication orders and management History Interval history: No new issues overnight. Hospitalist Physical - Constitutional Vitals: Temp Pulse Resp BP Pulse Ox 98.6 F 85 28 H 137/85 97 02/25/20 19:33 02/26/20 02:37 02/26/20 02:37 02/26/20 00:00 02/26/20 01:35 General appearance: Present: no acute distress, well-nourished - EENT Eyes: Present: PERRL, EOM intact ENT: hearing intact, clear oral mucosa, dentition normal - Neck Neck: Present: supple, normal ROM - Respiratory Respiratory effort: normal Respiratory: bilateral: CTA - Cardiovascular Rhythm: regular Heart Sounds: Present: S1 & S2. Absent: gallop, rub - Extremities Extremities: no ischemia, No edema, Full ROM - Abdominal General gastrointestinal: soft, non-tender, non-distended, normal bowel sounds - Integumentary Integumentary: Present: clear, warm, dry - Neurologic Neurologic: CNII-XII intact, moves all extremities HEART Score - HEART Score Troponin: Troponin T < 0.010 ng/mL (0.00-0.029) 02/25/20 20:16 Results - Labs CBC & Chem 7: 02/26/20 03:57 02/26/20 03:57 Labs: Laboratory Last Values WBC 6.0 K/mm3 (4.5-11.0) 02/26/20 03:57 RBC 3.95 M/mm3 (3.65-5.03) 02/26/20 03:57 Hgb 10.9 gm/dl (11.8-15.2) L 02/26/20 03:57 Hct 32.8 % (35.5-45.6) L 02/26/20 03:57 MCV 83 fl (84-94) L 02/26/20 03:57 MCH 28 pg (28-32) 02/26/20 03:57 MCHC 33 % (32-34) 02/26/20 03:57 RDW 17.6 % (13.2-15.2) H 02/26/20 03:57 Plt Count 199 K/mm3 (140-440) 02/26/20 03:57 Lymph % (Auto) 10.3 % (13.4-35.0) L 02/26/20 03:57 [place] % (Auto) 5.7 % (0.0-7.3) 02/26/20 03:57 Eos % (Auto) 0.1 % (0.0-4.3) 02/26/20 03:57 Baso % (Auto) 0.2 % (0.0-1.8) 02/26/20 03:57 Lymph # 0.6 K/mm3 (1.2-5.4) L 02/26/20 03:57 [place] # 0.3 K/mm3 (0.0-0.8) 02/26/20 03:57 Eos # 0.0 K/mm3 (0.0-0.4) 02/26/20 03:57 Baso # 0.0 K/mm3 (0.0-0.1) 02/26/20 03:57 Seg Neutrophils % 83.7 % (40.0-70.0) H 02/26/20 03:57 Seg Neutrophils # 5.0 K/mm3 (1.8-7.7) 02/26/20 03:57 PT 14.2 Sec. (12.2-14.9) 02/26/20 03:57 INR 1.09 (0.87-1.13) 02/26/20 03:57 D-Dimer 1216.06 ng/mlDDU (0-234) H 02/25/20 23:03 Sodium 139 mmol/L (137-145) 02/26/20 03:57 Potassium 3.8 mmol/L (3.6-5.0) 02/26/20 03:57 Chloride 105.6 mmol/L (98-107) 02/26/20 03:57 Carbon Dioxide 20 mmol/L (22-30) L 02/26/20 03:57 Anion Gap 17 mmol/L 02/26/20 03:57 BUN 18 mg/dL (9-20) 02/26/20 03:57 Creatinine 1.0 mg/dL (0.8-1.5) 02/26/20 03:57 Estimated GFR > 60 ml/min 02/26/20 03:57 BUN/Creatinine Ratio 18 % 02/26/20 03:57 Glucose 194 mg/dL (75-100) H 02/26/20 03:57 Lactic Acid 1.60 mmol/L (0.7-2.0) 02/25/20 20:16 Calcium 8.0 mg/dL (8.4-10.2) L 02/26/20 03:57 Ferritin 117.6 ng/mL (13.0-400.0) 02/25/20 23:03 Total Bilirubin 0.50 mg/dL (0.1-1.2) 02/25/20 20:16 AST 32 units/L (5-40) 02/25/20 20:16 ALT 19 units/L (7-56) 02/25/20 20:16 Alkaline Phosphatase 33 units/L (35-129) L 02/25/20 20:16 Ammonia 42.0 umol/L (25-60) 02/25/20 20:16 Lactate Dehydrogenase 308 units/L (91-180) H 02/25/20 23:03 Total Creatine Kinase 1034 units/L (55-170) H 02/25/20 20:16 Troponin T < 0.010 ng/mL (0.00-0.029) 02/25/20 20:16 C-Reactive Protein 5.50 mg/dL (0.00-1.30) H 02/25/20 23:03 Total Protein 5.9 g/dL (6.3-8.2) L 02/25/20 20:16 Albumin 3.5 g/dL (3.9-5) L 02/25/20 20:16 Albumin/Globulin Ratio 1.5 % 02/25/20 20:16 Procalcitonin 0.38 ng/mL (<0.15) 02/25/20 23:03 Urine Color Yellow (Yellow) 02/25/20 21:12 Urine Turbidity Clear (Clear) 02/25/20 21:12 Urine pH 6.0 (5.0-7.0) 02/25/20 21:12 Ur Specific [place] 1.023 (1.003-1.030) 02/25/20 21:12 Urine Protein 100 mg/dl mg/dL (Negative) 02/25/20 21:12 Urine Glucose (UA) 50 mg/dL (Negative) 02/25/20 21:12 Urine Ketones Neg mg/dL (Negative) 02/25/20 21:12 Urine Blood Lg (Negative) 02/25/20 21:12 Urine Nitrite Neg (Negative) 02/25/20 21:12 Urine Bilirubin Neg (Negative) 02/25/20 21:12 Urine Urobilinogen 4.0 mg/dL (<2.0) 02/25/20 21:12 Ur Leukocyte Esterase Tr (Negative) 02/25/20 21:12 Urine WBC (Auto) 24.0 /HPF (0.0-6.0) H 02/25/20 21:12 Urine RBC (Auto) 2.0 /HPF (0.0-6.0) 02/25/20 21:12 Urine Mucus Few /HPF 02/25/20 21:12 Urine Yeast (Budding) Few /HPF 02/25/20 21:12 Salicylates < 0.3 mg/dL (2.8-20.0) L 02/25/20 20:16 Urine Opiates Screen Presumptive negative 02/25/20 Unknown Urine Methadone Screen Presumptive negative 02/25/20 Unknown Acetaminophen < 5.0 ug/mL (10.0-30.0) L 02/25/20 20:16 Ur Barbiturates Screen Presumptive negative 02/25/20 Unknown Ur Phencyclidine Scrn Presumptive negative 02/25/20 Unknown Ur Amphetamines Screen Presumptive negative 02/25/20 Unknown U Benzodiazepines Scrn Presumptive negative 02/25/20 Unknown Urine Cocaine Screen Presumptive negative 02/25/20 Unknown U Marijuana (THC) Screen Presumptive negative 02/25/20 Unknown Drugs of Abuse Note Disclamer 02/25/20 Unknown Plasma/Serum Alcohol < 0.01 % (0-0.07) 02/25/20 20:16 Velasquez/IV: Voiding Method Condom Catheter IV Catheter Type [left ac] Peripheral IV Active Medications - Current Medications Current Medications: Generic Name Dose Route Start Last Admin Trade Name Freq PRN Reason Stop Dose Admin Acetaminophen 650 mg 02/25/20 23:51 02/26/20 11:39 Tylenol PO 650 mg Q4H PRN Administration Pain MILD(1-3)/Fever >100.5/RAMOS Albuterol 2.5 mg 02/26/20 02:29 Proventil IH Q4HRT PRN Shortness Of Breath Azithromycin 500 mg 02/27/20 10:00 Zithromax PO 03/01/20 10:01 QDAY SABA Divalproex Sodium 500 mg 02/26/20 10:00 02/26/20 10:00 Depakote Er PO 500 mg QDAY SABA Administration Heparin Sodium (Porcine) 5,000 unit 02/26/20 14:00 Heparin SUB-Q Q8HR SABA Sodium Chloride 1,000 mls @ 125 mls/hr 02/25/20 23:45 02/26/20 09:59 Nacl 0.9% 1000 Ml IV 125 mls/hr DIRECT SABA Administration Ceftriaxone Sodium 2 gm in 100 mls @ 200 mls/hr 02/26/20 10:00 02/26/20 09:59 Rocephin/Ns 2 Gm/100 Ml IV 200 mls/hr Q24HR SABA Administration Protocol Azithromycin 500 mg/ Sodium 250 mls @ 250 mls/hr 02/26/20 10:00 02/26/20 10:02 Chloride IV 02/26/20 18:00 250 mls/hr Q24HR SABA Administration Protocol Magnesium Hydroxide 30 ml 02/25/20 23:51 Milk Of Magnesia PO Q4H PRN Constipation Ondansetron HCl 4 mg 02/25/20 23:51 Zofran IV Q8H PRN Nausea And Vomiting Pantoprazole Sodium 20 mg 02/26/20 10:00 02/26/20 10:01 Protonix PO 20 mg BID SABA Administration Sodium Chloride 10 ml 02/26/20 10:00 02/26/20 10:01 Sodium Chloride Flush Syringe 10 Ml IV 10 ml BID SABA Administration Sodium Chloride 10 ml 05/14/20 23:51 Sodium Chloride Flush Syringe 10 Ml IV PRN PRN LINE FLUSH Nutrition/Malnutrition Assess - Dietary Evaluation Nutrition/Malnutrition Findings: Nutrition Notes Start: 02/26/20 12:55 Freq: Status: Active Protocol: Document 02/26/20 12:55 LM (Rec: 02/26/20 13:00 LM [email or web address]) Nutrition Notes Need for Assessment generated from: bit [email or web address],MST Initial or Follow up Brief Note Other Pertinent Diagnosis pneu, UTI, AMS, asthma, schizophrenia Current Diet regular Labs/Tests BG 194 Pertinent Medications NaCl at 125ml/hr KCl at 100ml/hr Height 5 ft 8 in Weight 101.7 kg [place] Body Weight (kg) 70.00 BMI 34.0 Weight Status Obese Subjective/Other Information RN screen for MST. Unable to reach pt 2x. Pt has weak environmental protection inspector strength. Reduced Electromatic Typist Strength Measurably Reduced (severe) Nutrition Intervention Follow-Up By: 02/29/20 Additional Comments F/U for assessment
[2020-02-26] MEDS: HEPARIN 5,000 UNIT/1 ML VIAL SUB-Q SCH ×2 (16:31→21:12)
[2020-02-27] MEDS: HEPARIN 5,000 UNIT/1 ML VIAL SUB-Q SCH ×3 (05:12→23:06)
[2020-02-27] MEDS: cefTRIAXone/NS 2 GM/100 ML 2 GM/100 ML BAG IV SCH (09:43)
[2020-02-27] MEDS: DIVALPROEX ER 500 MG TAB PO SCH (09:43)
[2020-02-27] MEDS: PANTOPRAZOLE 20 MG TAB PO SCH ×2 (09:43→23:06)
[2020-02-27] MEDS: AZITHROMYCIN 250 MG TAB PO SCH (09:43)
--- NOTE | 2020-02-27 11:47 | Progress Note ---
Assessment and Plan Assessment and plan: Sepsis. Etiology secondary to pneumonia and UTI. Follow-up blood and urine cultures. Right upper lobe pneumonia. Continue to follow serial chest x-ray and antibiotics. ID consulted. Acute hypoxemic respiratory failure. Etiology secondary to above. Continue O2 to maintain sats greater than 92%. BiPAP as clinically indicated. UTI. Continue IV antibiotics and follow-up urine cultures. Toxic metabolic encephalopathy. Etiology secondary to above. Continue to treat underlying cause. 02/27/2020. Continue COVID isolation precautions. Ceftriaxone and azithromycin IV per ID recommendations. MRI brain. Monitor inflammatory markers. D-dimer 1216, LDH 308, CRP 5.5 and ferritin 117. Patient currently with high flow nasal [id number] L/min FiO2 35%. Pulmonary consulted. History Interval history: No new issues overnight. Patient still with persistent fever Hospitalist Physical - Constitutional Vitals: Temp Pulse Resp BP Pulse Ox 98.5 F 96 H 18 162/81 94 02/27/20 05:06 02/27/20 05:06 02/27/20 05:06 02/27/20 05:06 02/27/20 10:49 General appearance: Present: no acute distress, well-nourished - EENT Eyes: Present: PERRL, EOM intact ENT: hearing intact, clear oral mucosa, dentition normal - Neck Neck: Present: supple, normal ROM - Respiratory Respiratory effort: normal Respiratory: bilateral: CTA - Cardiovascular Rhythm: regular Heart Sounds: Present: S1 & S2. Absent: gallop, rub - Extremities Extremities: no ischemia, No edema, Full ROM - Abdominal General gastrointestinal: soft, non-tender, non-distended, normal bowel sounds - Integumentary Integumentary: Present: clear, warm, dry - Neurologic Neurologic: CNII-XII intact, moves all extremities HEART Score - HEART Score Troponin: Troponin T < 0.010 ng/mL (0.00-0.029) 02/25/20 20:16 Results - Labs CBC & Chem 7: 02/26/20 03:57 02/26/20 03:57 Labs: Laboratory Last Values WBC 6.0 K/mm3 (4.5-11.0) 02/26/20 03:57 RBC 3.95 M/mm3 (3.65-5.03) 02/26/20 03:57 Hgb 10.9 gm/dl (11.8-15.2) L 02/26/20 03:57 Hct 32.8 % (35.5-45.6) L 02/26/20 03:57 MCV 83 fl (84-94) L 02/26/20 03:57 MCH 28 pg (28-32) 02/26/20 03:57 MCHC 33 % (32-34) 02/26/20 03:57 RDW 17.6 % (13.2-15.2) H 02/26/20 03:57 Plt Count 199 K/mm3 (140-440) 02/26/20 03:57 Lymph % (Auto) 10.3 % (13.4-35.0) L 02/26/20 03:57 [place] % (Auto) 5.7 % (0.0-7.3) 02/26/20 03:57 Eos % (Auto) 0.1 % (0.0-4.3) 02/26/20 03:57 Baso % (Auto) 0.2 % (0.0-1.8) 02/26/20 03:57 Lymph # 0.6 K/mm3 (1.2-5.4) L 02/26/20 03:57 [place] # 0.3 K/mm3 (0.0-0.8) 02/26/20 03:57 Eos # 0.0 K/mm3 (0.0-0.4) 02/26/20 03:57 Baso # 0.0 K/mm3 (0.0-0.1) 02/26/20 03:57 Seg Neutrophils % 83.7 % (40.0-70.0) H 02/26/20 03:57 Seg Neutrophils # 5.0 K/mm3 (1.8-7.7) 02/26/20 03:57 PT 14.2 Sec. (12.2-14.9) 02/26/20 03:57 INR 1.09 (0.87-1.13) 02/26/20 03:57 D-Dimer 1216.06 ng/mlDDU (0-234) H 02/25/20 23:03 Sodium 139 mmol/L (137-145) 02/26/20 03:57 Potassium 3.8 mmol/L (3.6-5.0) 02/26/20 03:57 Chloride 105.6 mmol/L (98-107) 02/26/20 03:57 Carbon Dioxide 20 mmol/L (22-30) L 02/26/20 03:57 Anion Gap 17 mmol/L 02/26/20 03:57 BUN 18 mg/dL (9-20) 02/26/20 03:57 Creatinine 1.0 mg/dL (0.8-1.5) 02/26/20 03:57 Estimated GFR > 60 ml/min 02/26/20 03:57 BUN/Creatinine Ratio 18 % 02/26/20 03:57 Glucose 194 mg/dL (75-100) H 02/26/20 03:57 Lactic Acid 1.60 mmol/L (0.7-2.0) 02/25/20 20:16 Calcium 8.0 mg/dL (8.4-10.2) L 02/26/20 03:57 Ferritin 117.6 ng/mL (13.0-400.0) 02/25/20 23:03 Total Bilirubin 0.50 mg/dL (0.1-1.2) 02/25/20 20:16 AST 32 units/L (5-40) 02/25/20 20:16 ALT 19 units/L (7-56) 02/25/20 20:16 Alkaline Phosphatase 33 units/L (35-129) L 02/25/20 20:16 Ammonia 42.0 umol/L (25-60) 02/25/20 20:16 Lactate Dehydrogenase 308 units/L (91-180) H 02/25/20 23:03 Total Creatine Kinase 1034 units/L (55-170) H 02/25/20 20:16 Troponin T < 0.010 ng/mL (0.00-0.029) 02/25/20 20:16 C-Reactive Protein 5.50 mg/dL (0.00-1.30) H 02/25/20 23:03 Total Protein 5.9 g/dL (6.3-8.2) L 02/25/20 20:16 Albumin 3.5 g/dL (3.9-5) L 02/25/20 20:16 Albumin/Globulin Ratio 1.5 % 02/25/20 20:16 Procalcitonin 0.38 ng/mL (<0.15) 02/25/20 23:03 Urine Color Yellow (Yellow) 02/25/20 21:12 Urine Turbidity Clear (Clear) 02/25/20 21:12 Urine pH 6.0 (5.0-7.0) 02/25/20 21:12 Ur Specific [place] 1.023 (1.003-1.030) 02/25/20 21:12 Urine Protein 100 mg/dl mg/dL (Negative) 02/25/20 21:12 Urine Glucose (UA) 50 mg/dL (Negative) 02/25/20 21:12 Urine Ketones Neg mg/dL (Negative) 02/25/20 21:12 Urine Blood Lg (Negative) 02/25/20 21:12 Urine Nitrite Neg (Negative) 02/25/20 21:12 Urine Bilirubin Neg (Negative) 02/25/20 21:12 Urine Urobilinogen 4.0 mg/dL (<2.0) 02/25/20 21:12 Ur Leukocyte Esterase Tr (Negative) 02/25/20 21:12 Urine WBC (Auto) 24.0 /HPF (0.0-6.0) H 02/25/20 21:12 Urine RBC (Auto) 2.0 /HPF (0.0-6.0) 02/25/20 21:12 Urine Mucus Few /HPF 02/25/20 21:12 Urine Yeast (Budding) Few /HPF 02/25/20 21:12 Salicylates < 0.3 mg/dL (2.8-20.0) L 02/25/20 20:16 Urine Opiates Screen Presumptive negative 02/25/20 Unknown Urine Methadone Screen Presumptive negative 02/25/20 Unknown Acetaminophen < 5.0 ug/mL (10.0-30.0) L 02/25/20 20:16 Ur Barbiturates Screen Presumptive negative 02/25/20 Unknown Ur Phencyclidine Scrn Presumptive negative 02/25/20 Unknown Ur Amphetamines Screen Presumptive negative 02/25/20 Unknown U Benzodiazepines Scrn Presumptive negative 02/25/20 Unknown Urine Cocaine Screen Presumptive negative 02/25/20 Unknown U Marijuana (THC) Screen Presumptive negative 02/25/20 Unknown Drugs of Abuse Note Disclamer 02/25/20 Unknown Plasma/Serum Alcohol < 0.01 % (0-0.07) 02/25/20 20:16 Coronavirus (PCR) Positive (Negative) A 02/25/20 07:45 Microbiology: Microbiology 02/25/20 21:12 Urine,Clean Catch Urine Culture - Preliminary Velasquez/IV: Voiding Method Condom Catheter IV Catheter Type [left ac] Peripheral IV IV Catheter Type [Left Hand] Peripheral IV Active Medications - Current Medications Current Medications: Generic Name Dose Route Start Last Admin Trade Name Freq PRN Reason Stop Dose Admin Acetaminophen 650 mg 02/25/20 23:51 02/26/20 21:30 Tylenol PO 650 mg Q4H PRN Administration Pain MILD(1-3)/Fever >100.5/RAMOS Albuterol 2.5 mg 02/26/20 02:29 Proventil IH Q4HRT PRN Shortness Of Breath Azithromycin 500 mg 02/27/20 10:00 02/27/20 09:43 Zithromax PO 03/01/20 10:01 500 mg QDAY SABA Administration Divalproex Sodium 500 mg 02/26/20 10:00 02/27/20 09:43 Depakote Er PO 500 mg QDAY SABA Administration Heparin Sodium (Porcine) 5,000 unit 02/26/20 14:00 02/27/20 05:12 Heparin SUB-Q 5,000 unit Q8HR SABA Administration Sodium Chloride 1,000 mls @ 75 mls/hr 02/25/20 23:45 02/26/20 09:59 Nacl 0.9% 1000 Ml IV 125 mls/hr DIRECT SABA Administration Ceftriaxone Sodium 2 gm in 100 mls @ 200 mls/hr 02/26/20 10:00 02/27/20 09:43 Rocephin/Ns 2 Gm/100 Ml IV 200 mls/hr Q24HR SABA Administration Protocol Magnesium Hydroxide 30 ml 02/25/20 23:51 Milk Of Magnesia PO Q4H PRN Constipation Ondansetron HCl 4 mg 02/25/20 23:51 Zofran IV Q8H PRN Nausea And Vomiting Pantoprazole Sodium 20 mg 02/26/20 10:00 02/27/20 09:43 Protonix PO 20 mg BID SABA Administration Sodium Chloride 10 ml 02/26/20 10:00 02/27/20 09:43 Sodium Chloride Flush Syringe 10 Ml IV 10 ml BID SABA Administration Sodium Chloride 10 ml 02/25/20 23:51 Sodium Chloride Flush Syringe 10 Ml IV PRN PRN LINE FLUSH Nutrition/Malnutrition Assess - Dietary Evaluation Nutrition/Malnutrition Findings: Nutrition Notes Start: 02/26/20 12:55 Freq: Status: Active Protocol: Document 02/26/20 12:55 LM (Rec: 02/26/20 13:00 LM [email or web address]) Nutrition Notes 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 Unable to reach pt 2x. Pt has weak life enrichment assistant strength. Reduced Precision Machine Operator Strength Measurably Reduced (severe) Nutrition Intervention Follow-Up By: 02/29/20 Additional Comments F/U for assessment
--- NOTE | 2020-02-27 14:52 | Consultation ---
History of Present Illness Consult date: 02/27/20 Requesting physician: KYLAH CABRERA Reason for consult: other (Acute Hypoxemic Reswpiratory Failure) History of present illness: PULMONARY/CCM CONSULT NOTE (Full dictation # [id number]) Please see dictated notes for full details Past History Past Medical History: other (History of asthma, schizophrenia) Past Surgical History: No surgical history Social history: smoking (Delay), other (Resident of a [place] [facility] [place]) Medications and Allergies Allergies Allergy/AdvReac Type Severity Reaction Status Date / Time No Known Allergies Allergy Unverified 02/25/20 21:12 Home Medications Medication Instructions Recorded Confirmed Last Taken Type Divalproex ER [DepaKOTE ER] 500 mg PO QDAY 02/26/20 02/26/20 Unknown History Omeprazole 20 mg PO BID 02/26/20 02/26/20 Unknown History Paliperidone [Invega] 12 mg PO DAILY 02/27/20 02/27/20 Unknown History Active Meds: Active Medications Acetaminophen (Tylenol) 650 mg PO Q4H PRN PRN Reason: Pain MILD(1-3)/Fever >100.5/RAMOS Last Admin: 02/26/20 21:30 Dose: 650 mg Documented by: Albuterol (Proventil) 2.5 mg IH Q4HRT PRN PRN Reason: Shortness Of Breath Azithromycin (Zithromax) 500 mg PO QDAY [facility] Stop: 03/01/20 10:01 Last Admin: 02/27/20 09:43 Dose: 500 mg Documented by: Divalproex Sodium (Depakote Er) 500 mg PO QDAY [facility] Last Admin: 02/27/20 09:43 Dose: 500 mg Documented by: Heparin Sodium (Porcine) (Heparin) 5,000 unit SUB-Q Q8HR [facility] Last Admin: 02/27/20 13:27 Dose: 5,000 unit Documented by: Sodium Chloride (Nacl 0.9% 1000 Ml) 1,000 mls @ 75 mls/hr IV DIRECT [facility] Last Admin: 02/26/20 09:59 Dose: 125 mls/hr Documented by: Ceftriaxone Sodium (Rocephin/Ns 2 Gm/100 Ml) 2 gm in 100 mls @ 200 mls/hr IV Q24HR SABA; Protocol Last Admin: 02/27/20 09:43 Dose: 200 mls/hr Documented by: Magnesium Hydroxide (Milk Of Magnesia) 30 ml PO Q4H PRN PRN Reason: Constipation Ondansetron HCl (Zofran) 4 mg IV Q8H PRN PRN Reason: Nausea And Vomiting Pantoprazole Sodium (Protonix) 20 mg PO BID [facility] Last Admin: 02/27/20 09:43 Dose: 20 mg Documented by: Sodium Chloride (Sodium Chloride Flush Syringe 10 Ml) 10 ml IV BID [facility] Last Admin: 02/27/20 09:43 Dose: 10 ml Documented by: Sodium Chloride (Sodium Chloride Flush Syringe 10 Ml) 10 ml IV PRN PRN PRN Reason: LINE FLUSH Physical Examination Vital signs: Vital Signs Temp Pulse Resp BP Pulse Ox 98.6 F 94 H 40 H 143/79 96 02/25/20 19:33 02/25/20 19:33 02/25/20 19:33 02/25/20 19:33 02/25/20 19:33 Results - Laboratory Findings CBC and BMP: 02/26/20 03:57 02/28/20 09:30 PT/INR, D-dimer PT 14.2 Sec. (12.2-14.9) 02/26/20 03:57 INR 1.09 (0.87-1.13) 02/26/20 03:57 D-Dimer 1216.06 ng/mlDDU (0-234) H 02/25/20 23:03 Abnormal lab findings: Abnormal Labs 02/25/20 02/25/20 02/25/20 07:45 20:16 20:16 Hgb 11.7 L Hct 35.3 L MCV 83 L MCH 27 L RDW 17.2 H Lymph % (Auto) 8.0 L [place] % (Auto) 8.5 H Lymph # 0.5 L Seg Neutrophils % 83.4 H D-Dimer Sodium 135 L Carbon Dioxide 21 L BUN 22 H Glucose 176 H Calcium 8.0 L Alkaline Phosphatase 33 L Lactate Dehydrogenase Total Creatine Kinase 1034 H C-Reactive Protein Total Protein 5.9 L Albumin 3.5 L Urine WBC (Auto) Salicylates Acetaminophen Coronavirus (PCR) Positive A 02/25/20 02/25/20 02/25/20 20:16 20:16 21:12 Hgb Hct MCV MCH RDW Lymph % (Auto) [place] % (Auto) Lymph # Seg Neutrophils % D-Dimer Sodium Carbon Dioxide BUN Glucose Calcium Alkaline Phosphatase Lactate Dehydrogenase Total Creatine Kinase C-Reactive Protein Total Protein Albumin Urine WBC (Auto) 24.0 H Salicylates < 0.3 L Acetaminophen < 5.0 L Coronavirus (PCR) 02/25/20 02/25/20 02/26/20 23:03 23:03 03:57 Hgb 10.9 L Hct 32.8 L MCV 83 L MCH RDW 17.6 H Lymph % (Auto) 10.3 L [place] % (Auto) Lymph # 0.6 L Seg Neutrophils % 83.7 H D-Dimer 1216.06 H Sodium Carbon Dioxide BUN Glucose 144 H Calcium Alkaline Phosphatase Lactate Dehydrogenase 308 H Total Creatine Kinase C-Reactive Protein 5.50 H Total Protein Albumin Urine WBC (Auto) Salicylates Acetaminophen Coronavirus (PCR) 02/26/20 03:57 Hgb Hct MCV MCH RDW Lymph % (Auto) [place] % (Auto) Lymph # Seg Neutrophils % D-Dimer Sodium Carbon Dioxide 20 L BUN Glucose 194 H Calcium 8.0 L Alkaline Phosphatase Lactate Dehydrogenase Total Creatine Kinase C-Reactive Protein Total Protein Albumin Urine WBC (Auto) Salicylates Acetaminophen Coronavirus (PCR)
[2020-02-27] MEDS: PALIPERIDONE ER 3 MG TAB PO SCH (16:58)
[2020-02-27] MEDS ORDERED: METOPROLOL TARTRATE 5 MG/5 ML INJ IV ONE ×2 (18:38→22:00)
[2020-02-27] MEDS: METOPROLOL TARTRATE 25 MG TAB PO SCH (23:05)
[2020-02-28] MEDS: HEPARIN 5,000 UNIT/1 ML VIAL SUB-Q SCH ×3 (06:38→21:55)
[2020-02-28] MEDS: SODIUM CHLORIDE 0.9% 1000 ML 1,000 ML IV SCH (06:41)
[2020-02-28] MEDS: AZITHROMYCIN 250 MG TAB PO SCH (09:02)
[2020-02-28] MEDS: cefTRIAXone/NS 2 GM/100 ML 2 GM/100 ML BAG IV SCH (09:02)
[2020-02-28] MEDS: PANTOPRAZOLE 20 MG TAB PO SCH ×2 (09:02→21:54)
[2020-02-28] MEDS: PALIPERIDONE ER 3 MG TAB PO SCH (09:02)
[2020-02-28] MEDS: DIVALPROEX ER 500 MG TAB PO SCH (09:02)
[2020-02-28] MEDS: METOPROLOL TARTRATE 25 MG TAB PO SCH ×2 (09:08→21:53)
--- NOTE | 2020-02-28 09:32 | Progress Note ---
Assessment and Plan Assessment and plan: Sepsis. Etiology secondary to pneumonia and UTI. Follow-up blood and urine cultures. COVID-19 infection. PCR positive on 02/25/2020. Right upper lobe pneumonia. Continue to follow serial chest x-ray and antibiotics. ID consulted. Acute hypoxemic respiratory failure. Etiology secondary to above. Continue O2 to maintain sats greater than 92%. BiPAP as clinically indicated. UTI. Continue IV antibiotics and follow-up urine cultures. Toxic metabolic encephalopathy. Etiology secondary to above. Continue to treat underlying cause. Mastoiditis/left otitis media 02/27/2020. Continue COVID isolation precautions. Ceftriaxone and azithromycin IV per ID recommendations. MRI brain. Monitor inflammatory markers. D-dimer 1216, LDH 308, CRP 5.5 and ferritin 117. Patient currently with high flow nasal [id number] L/min FiO2 35%. Pulmonary consulted. 02/28/2020. Patient currently with HFNC--35 L/min with FiO2 35%. Follow-up repeat inflammatory markers today. Continue antibiotics of ceftriaxone and azithromycin. Follow-up MRI brain. History Interval history: No new issues overnight. Patient afebrile Hospitalist Physical - Constitutional Vitals: Temp Pulse Resp BP Pulse Ox 99.6 F 92 H 18 130/70 93 02/28/20 05:51 02/28/20 09:08 02/28/20 05:51 02/28/20 09:08 02/28/20 05:51 General appearance: Present: no acute distress, well-nourished - EENT Eyes: Present: PERRL, EOM intact ENT: hearing intact, clear oral mucosa, dentition normal - Neck Neck: Present: supple, normal ROM - Respiratory Respiratory effort: normal Respiratory: bilateral: CTA - Cardiovascular Rhythm: regular Heart Sounds: Present: S1 & S2. Absent: gallop, rub - Extremities Extremities: no ischemia, No edema, Full ROM - Abdominal General gastrointestinal: soft, non-tender, non-distended, normal bowel sounds - Integumentary Integumentary: Present: clear, warm, dry - Neurologic Neurologic: CNII-XII intact, moves all extremities HEART Score - HEART Score Troponin: Troponin T < 0.010 ng/mL (0.00-0.029) 02/25/20 20:16 Results - Labs CBC & Chem 7: 02/26/20 03:57 02/26/20 03:57 Labs: Laboratory Last Values WBC 6.0 K/mm3 (4.5-11.0) 02/26/20 03:57 RBC 3.95 M/mm3 (3.65-5.03) 02/26/20 03:57 Hgb 10.9 gm/dl (11.8-15.2) L 02/26/20 03:57 Hct 32.8 % (35.5-45.6) L 02/26/20 03:57 MCV 83 fl (84-94) L 02/26/20 03:57 MCH 28 pg (28-32) 02/26/20 03:57 MCHC 33 % (32-34) 02/26/20 03:57 RDW 17.6 % (13.2-15.2) H 02/26/20 03:57 Plt Count 199 K/mm3 (140-440) 02/26/20 03:57 Lymph % (Auto) 10.3 % (13.4-35.0) L 02/26/20 03:57 [place] % (Auto) 5.7 % (0.0-7.3) 02/26/20 03:57 Eos % (Auto) 0.1 % (0.0-4.3) 02/26/20 03:57 Baso % (Auto) 0.2 % (0.0-1.8) 02/26/20 03:57 Lymph # 0.6 K/mm3 (1.2-5.4) L 02/26/20 03:57 [place] # 0.3 K/mm3 (0.0-0.8) 02/26/20 03:57 Eos # 0.0 K/mm3 (0.0-0.4) 02/26/20 03:57 Baso # 0.0 K/mm3 (0.0-0.1) 02/26/20 03:57 Seg Neutrophils % 83.7 % (40.0-70.0) H 02/26/20 03:57 Seg Neutrophils # 5.0 K/mm3 (1.8-7.7) 02/26/20 03:57 PT 14.2 Sec. (12.2-14.9) 02/26/20 03:57 INR 1.09 (0.87-1.13) 02/26/20 03:57 D-Dimer 1216.06 ng/mlDDU (0-234) H 02/25/20 23:03 Sodium 139 mmol/L (137-145) 02/26/20 03:57 Potassium 3.8 mmol/L (3.6-5.0) 02/26/20 03:57 Chloride 105.6 mmol/L (98-107) 02/26/20 03:57 Carbon Dioxide 20 mmol/L (22-30) L 02/26/20 03:57 Anion Gap 17 mmol/L 02/26/20 03:57 BUN 18 mg/dL (9-20) 02/26/20 03:57 Creatinine 1.0 mg/dL (0.8-1.5) 02/26/20 03:57 Estimated GFR > 60 ml/min 02/26/20 03:57 BUN/Creatinine Ratio 18 % 02/26/20 03:57 Glucose 194 mg/dL (75-100) H 02/26/20 03:57 Lactic Acid 1.60 mmol/L (0.7-2.0) 02/25/20 20:16 Calcium 8.0 mg/dL (8.4-10.2) L 02/26/20 03:57 Ferritin 117.6 ng/mL (13.0-400.0) 02/25/20 23:03 Total Bilirubin 0.50 mg/dL (0.1-1.2) 02/25/20 20:16 AST 32 units/L (5-40) 02/25/20 20:16 ALT 19 units/L (7-56) 02/25/20 20:16 Alkaline Phosphatase 33 units/L (35-129) L 02/25/20 20:16 Ammonia 42.0 umol/L (25-60) 02/25/20 20:16 Lactate Dehydrogenase 308 units/L (91-180) H 02/25/20 23:03 Total Creatine Kinase 1034 units/L (55-170) H 02/25/20 20:16 Troponin T < 0.010 ng/mL (0.00-0.029) 02/25/20 20:16 C-Reactive Protein 5.50 mg/dL (0.00-1.30) H 02/25/20 23:03 Total Protein 5.9 g/dL (6.3-8.2) L 02/25/20 20:16 Albumin 3.5 g/dL (3.9-5) L 02/25/20 20:16 Albumin/Globulin Ratio 1.5 % 02/25/20 20:16 Procalcitonin 0.38 ng/mL (<0.15) 02/25/20 23:03 Urine Color Yellow (Yellow) 02/25/20 21:12 Urine Turbidity Clear (Clear) 02/25/20 21:12 Urine pH 6.0 (5.0-7.0) 02/25/20 21:12 Ur Specific [place] 1.023 (1.003-1.030) 02/25/20 21:12 Urine Protein 100 mg/dl mg/dL (Negative) 02/25/20 21:12 Urine Glucose (UA) 50 mg/dL (Negative) 02/25/20 21:12 Urine Ketones Neg mg/dL (Negative) 02/25/20 21:12 Urine Blood Lg (Negative) 02/25/20 21:12 Urine Nitrite Neg (Negative) 02/25/20 21:12 Urine Bilirubin Neg (Negative) 02/25/20 21:12 Urine Urobilinogen 4.0 mg/dL (<2.0) 02/25/20 21:12 Ur Leukocyte Esterase Tr (Negative) 02/25/20 21:12 Urine WBC (Auto) 24.0 /HPF (0.0-6.0) H 02/25/20 21:12 Urine RBC (Auto) 2.0 /HPF (0.0-6.0) 02/25/20 21:12 Urine Mucus Few /HPF 02/25/20 21:12 Urine Yeast (Budding) Few /HPF 02/25/20 21:12 Salicylates < 0.3 mg/dL (2.8-20.0) L 02/25/20 20:16 Urine Opiates Screen Presumptive negative 02/25/20 Unknown Urine Methadone Screen Presumptive negative 02/25/20 Unknown Acetaminophen < 5.0 ug/mL (10.0-30.0) L 02/25/20 20:16 Ur Barbiturates Screen Presumptive negative 02/25/20 Unknown Ur Phencyclidine Scrn Presumptive negative 02/25/20 Unknown Ur Amphetamines Screen Presumptive negative 02/25/20 Unknown U Benzodiazepines Scrn Presumptive negative 02/25/20 Unknown Urine Cocaine Screen Presumptive negative 02/25/20 Unknown U Marijuana (THC) Screen Presumptive negative 02/25/20 Unknown Drugs of Abuse Note Disclamer 02/25/20 Unknown Plasma/Serum Alcohol < 0.01 % (0-0.07) 02/25/20 20:16 Coronavirus (PCR) Positive (Negative) A 02/25/20 07:45 Microbiology: Microbiology 02/25/20 21:12 Urine,Clean Catch Urine Culture - Preliminary Enterococcus Faecalis Velasquez/IV: Voiding Method Condom Catheter IV Catheter Type [left ac] Peripheral IV IV Catheter Type [Left Hand] Peripheral IV Active Medications - Current Medications Current Medications: Generic Name Dose Route Start Last Admin Trade Name Freq PRN Reason Stop Dose Admin Acetaminophen 650 mg 02/25/20 23:51 02/26/20 21:30 Tylenol PO 650 mg Q4H PRN Administration Pain MILD(1-3)/Fever >100.5/RAMOS Albuterol 2.5 mg 02/26/20 02:29 Proventil IH Q4HRT PRN Shortness Of Breath Azithromycin 500 mg 02/27/20 10:00 02/28/20 09:02 Zithromax PO 03/01/20 10:01 500 mg QDAY SABA Administration Divalproex Sodium 500 mg 02/26/20 10:00 02/28/20 09:02 Depakote Er PO 500 mg QDAY SABA Administration Heparin Sodium (Porcine) 5,000 unit 02/26/20 14:00 02/28/20 06:38 Heparin SUB-Q 5,000 unit Q8HR SABA Administration Sodium Chloride 1,000 mls @ 75 mls/hr 02/25/20 23:45 02/28/20 06:41 Nacl 0.9% 1000 Ml IV 125 mls/hr DIRECT SABA Administration Ceftriaxone Sodium 2 gm in 100 mls @ 200 mls/hr 02/26/20 10:00 02/28/20 09:02 Rocephin/Ns 2 Gm/100 Ml IV 200 mls/hr Q24HR SABA Administration Protocol Magnesium Hydroxide 30 ml 02/25/20 23:51 Milk Of Magnesia PO Q4H PRN Constipation Metoprolol Tartrate 25 mg 02/27/20 22:00 02/28/20 09:08 Metoprolol PO 25 mg BID SABA Administration Ondansetron HCl 4 mg 02/25/20 23:51 Zofran IV Q8H PRN Nausea And Vomiting Paliperidone 12 mg 02/27/20 16:00 02/28/20 09:02 Invega PO 12 mg QDAY SABA Administration Pantoprazole Sodium 20 mg 02/26/20 10:00 02/28/20 09:02 Protonix PO 20 mg BID SABA Administration Sodium Chloride 10 ml 02/26/20 10:00 02/28/20 09:03 Sodium Chloride Flush Syringe 10 Ml IV 10 ml BID SABA Administration Sodium Chloride 10 ml 02/25/20 23:51 Sodium Chloride Flush Syringe 10 Ml IV PRN PRN LINE FLUSH Nutrition/Malnutrition Assess - Dietary Evaluation Nutrition/Malnutrition Findings: Nutrition Notes Start: 02/26/20 12:55 Freq: Status: Active Protocol: Document 02/26/20 12:55 LM (Rec: 02/26/20 13:00 LM [email or web address]) Nutrition Notes 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 Unable to reach pt 2x. 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 Reduced Acct Exec Strength Measurably Reduced (severe) Nutrition Intervention Follow-Up By: 02/29/20 Additional Comments F/U for assessment
--- NOTE | 2020-02-28 10:34 | Consultation ---
History of Present Illness Consult date: 02/28/20 Requesting physician: KYLAH CABRERA Consult reason: atrial fibrillation History of present illness: 69-year-old male resident of [facility] brought into the emergency room today for altered mental status. [facility] the [facility] was said to have called EMS because patient has had some changes in his mental status. Patient was said to have become less responsive over the past 2 days. He has significant past medical history of asthma schizophrenia and bipolar disorder.pt has tested positive for covind and pt has 1 hour run of afib and is back in nsr. pt denies any palpations or history, pt denies any cp , but is sob on high flow o2. pt is poor historian, history obtained from chart. Past History Past Medical History: other (History of asthma, schizophrenia) Past Surgical History: No surgical history Social history: smoking (Delay), other (Resident of a [facility]) Medications and Allergies Allergies Allergy/AdvReac Type Severity Reaction Status Date / Time No Known Allergies Allergy Unverified 02/25/20 21:12 Home Medications Medication Instructions Recorded Confirmed Last Taken Type Divalproex ER [DepaKOTE ER] 500 mg PO QDAY 02/26/20 02/26/20 Unknown History Omeprazole 20 mg PO BID 02/26/20 02/26/20 Unknown History Paliperidone [Invega] 12 mg PO DAILY 02/27/20 02/27/20 Unknown History Active Meds: Active Medications Acetaminophen (Tylenol) 650 mg PO Q4H PRN PRN Reason: Pain MILD(1-3)/Fever >100.5/RAMOS Last Admin: 02/26/20 21:30 Dose: 650 mg Documented by: Albuterol (Proventil) 2.5 mg IH Q4HRT PRN PRN Reason: Shortness Of Breath Azithromycin (Zithromax) 500 mg PO QDAY [facility] Stop: 03/01/20 10:01 Last Admin: 02/28/20 09:02 Dose: 500 mg Documented by: Divalproex Sodium (Depakote Er) 500 mg PO QDAY [facility] Last Admin: 02/28/20 09:02 Dose: 500 mg Documented by: Heparin Sodium (Porcine) (Heparin) 5,000 unit SUB-Q Q8HR [facility] Last Admin: 02/28/20 06:38 Dose: 5,000 unit Documented by: Sodium Chloride (Nacl 0.9% 1000 Ml) 1,000 mls @ 75 mls/hr IV DIRECT [facility] Last Admin: 02/28/20 06:41 Dose: 125 mls/hr Documented by: Ceftriaxone Sodium (Rocephin/Ns 2 Gm/100 Ml) 2 gm in 100 mls @ 200 mls/hr IV Q24HR [facility]; Protocol Last Admin: 02/28/20 09:02 Dose: 200 mls/hr Documented by: Magnesium Hydroxide (Milk Of Magnesia) 30 ml PO Q4H PRN PRN Reason: Constipation Metoprolol Tartrate (Metoprolol) 25 mg PO BID [facility] Last Admin: 02/28/20 09:08 Dose: 25 mg Documented by: Ondansetron HCl (Zofran) 4 mg IV Q8H PRN PRN Reason: Nausea And Vomiting Paliperidone (Invega) 12 mg PO QDAY [facility] Last Admin: 02/28/20 09:02 Dose: 12 mg Documented by: Pantoprazole Sodium (Protonix) 20 mg PO BID [facility] Last Admin: 02/28/20 09:02 Dose: 20 mg Documented by: Sodium Chloride (Sodium Chloride Flush Syringe 10 Ml) 10 ml IV BID [facility] Last Admin: 02/28/20 09:03 Dose: 10 ml Documented by: Sodium Chloride (Sodium Chloride Flush Syringe 10 Ml) 10 ml IV PRN PRN PRN Reason: LINE FLUSH Review of Systems ROS unobtainable: due to mental status Physical Examination Vital Signs Temp Pulse Resp BP Pulse Ox 98.6 F 94 H 40 H 143/79 96 02/25/20 19:33 02/25/20 19:33 02/25/20 19:33 02/25/20 19:33 02/25/20 19:33 General appearance: disheveled HEENT: Positive: PERRL, EOMI Neck: Positive: neck supple Cardiac: Positive: Reg Rate and Rhythm Lungs: Positive: Decreased Breath Sounds Neuro: Positive: Other (ams) Abdomen: Positive: Soft, Active Bowel Sounds Male genitourinary: Positive: deferred Extremities: Absent: normal Results 02/26/20 03:57 02/26/20 03:57 - Imaging and Cardiology Echo: pending EKG interpretations - Telemetry EKG Rhythm: Sinus Rhythm (nsr non specific st-t and prior afib non specific st- t) Assessment and Plan pt on Lopressor and cont to help suppress afib secondary to hypoxia. pt in view of short duration hold off intermediate anticoagulation. pt if goes back into afib consider oral anti coagulation. cont monitor pt heart rate on Lopressor. - Patient Problems (1) COVID-19 Current Visit: Yes Status: Acute (2) Respiratory failure with hypoxia Current Visit: Yes Status: Acute Qualifiers: Chronicity: acute Qualified Code(s): J96.01 - Acute respiratory failure with hypoxia (3) Afib Current Visit: Yes Status: Acute Qualifiers: Atrial fibrillation type: paroxysmal Qualified Code(s): I48.0 - Paroxysmal atrial fibrillation (4) Pneumonia Current Visit: Yes Status: Acute Qualifiers: Pneumonia type: due to unspecified organism Laterality: unspecified laterality Lung location: unspecified part of lung Qualified Code(s): J18.9 - Pneumonia, unspecified organism
[2020-02-28 11:37] LABS: C-Reactive Protein 13.3 mg/dL (0.00-1.30)
--- NOTE | 2020-02-28 15:26 | Progress Note ---
Assessment and Plan Acute hypoxemic respiratory failure. Right lung pneumonia. COVID-19 infection. History of schizophrenia. Systemic inflammatory response syndrome. Anemia that is microcytic. Mild hyponatremia. Mild metabolic acidosis. Elevated serum creatinine kinase. Urinary tract infection. - continue airborne, droplet and contact isolation for COVID-19 - trend inflammatory markers per facility protocol - Vit C, Vitamin D - Continue steroids - Accuchecks with glycemic control per SSI (While critically ill target blood glucose of 140-180 mg/dL; avoid hypoglycemia) - Intermittent diuresis while monitoring renal function, hemodynamics and electrolyte profile- redose lasix in the morning - Follow up CXR continues to show worsening of infiltrates, plan on getting speech evaluation for dysphagia to r/o silent aspiration Reordered CXR for the morning - Continue to wean supplemental oxygen for target O2 sats > 92% - Awake proning as tolerated - Continue bronchodilators with pulmonary hygiene per RT - Avoid benzodiazepines, reduce the possibility of delirium - prn analgesia per CPOT score - Maintenance of sleep-wake cycle, avoid delirium - Antibiotics per ID- on Unasyn for E.faecalis UTI - VTE prophylaxis-Heparin - Stress ulcer prophylaxis while he is on steroids and high flow oxygen - Mobility protocol, off loading and skin assessment for pressure ulcer prevention -Continue other care per attending / other consultants .... Re-evaluate in am & prn Subjective Date of service: 02/28/20 Principal diagnosis: Ac hypoxemic resp failure; R lung PNA; COVID-19 infection; UTI Interval history: Patient is seen today for: Acute hypoxemic respiratory failure; Right lung pneumonia; COVID-19 infection; History of schizophrenia; UTI Seen and examined at bedside; 24hour events reviewed; nursing and respiratory care staff consulted; no adverse overnight events reported to me; resting peacefully in bed; remains somnolent; remains on supplemental oxygen at 55% FiO2 and breathing is less labored; no new issues otherwise Objective Vital Signs - 12hr 02/28/20 02/28/20 02/28/20 05:51 09:08 11:27 Temperature 99.6 F 99.7 F H Pulse Rate 93 H 92 H 93 H Respiratory 18 48 H Rate Blood Pressure 118/71 130/70 121/76 O2 Sat by Pulse 93 93 Oximetry Constitutional: appears uncomfortable Eyes: non-icteric ENT: oropharynx moist Neck: supple Effort: mildly labored Ascultation: Bilateral: diminished breath sounds, rhonchi Percussion: Bilateral: not dull Cardiovascular: regular rate and rhythm Gastrointestinal: normoactive bowel sounds, soft, non-tender, non-distended Integumentary: rash Extremities: no cyanosis, pink and warm, pulses normal, no ischemia or petechiae Neurologic: non-focal exam (grossly), pupils equal and round, CN II-XII normal, motor strength normal and Psychiatric: other (? schizoid personality va dementia) CBC and BMP: 03/04/20 00:05 03/04/20 00:05 ABG, PT/INR, D-dimer: PT/INR, D-dimer PT 14.2 Sec. (12.2-14.9) 02/26/20 03:57 INR 1.09 (0.87-1.13) 02/26/20 03:57 D-Dimer 1211.40 ng/mlDDU (0-234) H 02/28/20 Unknown Abnormal lab findings: Abnormal Labs 02/25/20 02/25/20 02/25/20 07:45 20:16 20:16 Hgb 11.7 L Hct 35.3 L MCV 83 L MCH 27 L RDW 17.2 H Lymph % (Auto) 8.0 L Daniels % (Auto) 8.5 H Lymph # 0.5 L Seg Neutrophils % 83.4 H D-Dimer Sodium 135 L Carbon Dioxide 21 L BUN 22 H Glucose 176 H Calcium 8.0 L Alkaline Phosphatase 33 L Lactate Dehydrogenase Total Creatine Kinase 1034 H C-Reactive Protein Total Protein 5.9 L Albumin 3.5 L Urine WBC (Auto) Salicylates Acetaminophen Coronavirus (PCR) Positive A 02/25/20 02/25/20 02/25/20 20:16 20:16 21:12 Hgb Hct MCV MCH RDW Lymph % (Auto) Daniels % (Auto) Lymph # Seg Neutrophils % D-Dimer Sodium Carbon Dioxide BUN Glucose Calcium Alkaline Phosphatase Lactate Dehydrogenase Total Creatine Kinase C-Reactive Protein Total Protein Albumin Urine WBC (Auto) 24.0 H Salicylates < 0.3 L Acetaminophen < 5.0 L Coronavirus (PCR) 02/25/20 02/25/20 02/26/20 23:03 23:03 03:57 Hgb 10.9 L Hct 32.8 L MCV 83 L MCH RDW 17.6 H Lymph % (Auto) 10.3 L Daniels % (Auto) Lymph # 0.6 L Seg Neutrophils % 83.7 H D-Dimer 1216.06 H Sodium Carbon Dioxide BUN Glucose 144 H Calcium Alkaline Phosphatase Lactate Dehydrogenase 308 H Total Creatine Kinase C-Reactive Protein 5.50 H Total Protein Albumin Urine WBC (Auto) Salicylates Acetaminophen Coronavirus (PCR) 02/26/20 02/28/20 02/28/20 03:57 09:30 Unknown Hgb Hct MCV MCH RDW Lymph % (Auto) Daniels % (Auto) Lymph # Seg Neutrophils % D-Dimer 1211.40 H Sodium Carbon Dioxide 20 L BUN Glucose 194 H 162 H Calcium 8.0 L Alkaline Phosphatase Lactate Dehydrogenase 399 H Total Creatine Kinase C-Reactive Protein 13.30 H Total Protein Albumin Urine WBC (Auto) Salicylates Acetaminophen Coronavirus (PCR) Allied health notes reviewed: nursing
[2020-02-28] MEDS: ASCORBIC ACID 500 MG TAB PO SCH ×2 (15:52→21:54)
[2020-02-28] MEDS: ZINC SULFATE 220 MG CAP PO SCH ×2 (15:52→21:54)
[2020-02-28] MEDS: ACETAMINOPHEN 325 MG TAB PO PRN (16:47)
[2020-02-28] MEDS ORDERED: METOPROLOL TARTRATE 5 MG/5 ML INJ IV ONE (19:49)
--- NOTE | 2020-02-28 20:33 | Consultation ---
PULMONARY CONSULTATION NOTE. CONSULTING PHYSICIAN: Dr. Adi Chiang. REASON FOR CONSULTATION: Hypoxemia. CHIEF COMPLAINT AND HISTORY OF PRESENT ILLNESS: The patient is a 69-year-old white male resident of [facility], brought into the ER for altered mental status. He had been with reduced level of consciousness over the preceding 2 days. He does have a significant past medical history of schizophrenia and bipolar disorder. They denied fevers or chills. Denied cough or shortness of breath. He must have denied chest pain, headaches or dizziness. They also denied contact with anyone with known COVID-19 infection. In the Emergency Room, he was found to have pneumonia, urinary tract infection, was admitted for further management. We are asked to assist with management for the hypoxemia and pneumonia. It is unclear if the patient was initially tested for COVID-19 infection. He actually did have positive COVID-19 virus antibody assay, I believe. There really is as much of the history of presentation as I have. When I stopped by to see him, he is unable to give me much of the history. He just stares at me with a blank stare. As far as I can tell, he is not a current smoker, but he does have a remote tobacco smoking history. PAST MEDICAL HISTORY: Asthma, schizophrenia, bipolar disorder. He is obese. PAST SURGICAL HISTORY: Unknown. MEDICATIONS: He was on at the time I stopped by to see him were reviewed. Pertinent medications included the following: Tylenol 650 mg p.o. q. 4 hours p.r.n. mild pain or fevers, p.r.n. albuterol treatments 2.5 mg nebulized q. 4 hours, Zithromax 500 mg p.o. daily, Depakote ER 500 mg p.o. daily, heparin 5000 units subcutaneous q. 8 hours, Rocephin 2 g IV daily, Protonix 20 mg p.o. b.i.d., Zofran 4 mg IV q. 8 hours p.r.n. nausea and vomiting. ALLERGIES: No known drug allergies. DIET: Obese gentleman, acute weight loss or gain history is unknown. FAMILY AND SOCIAL HISTORY: [facility] resident. He is described as a smoker. Alcohol or illicit drug use or abuse history is unknown. Family history is otherwise unknown. REVIEW OF SYSTEMS: Difficult to obtain secondary the patient's medical and mental condition. Since he has been here, no gross hematochezia or melena, no gross hematuria, no hematemesis, no hemoptysis, no palpitations. No witnessed seizures. Review of systems otherwise as in the body of history above or unobtainable. PHYSICAL EXAMINATION: VITAL SIGNS: At presentation, he was afebrile, temperature 98.6 degrees Fahrenheit with a pulse of 94, respiratory rate as high as 40, blood pressure 143/79, O2 sats were 96%, inspired oxygen concentration at that time was not recorded. When I stopped by to see him, his O2 sats were 98% that was on high-flow nasal cannula with a flow of 40, FiO2 of 35 via Vapotherm system. GENERAL: He is an elderly, morbidly obese somewhat unkempt looking male, normocephalic. Appears atraumatic with mildly increased respiratory effort at rest. HEAD, EYES, EARS, NOSE HEENT: Anicteric. No conjunctival erythema. Oropharynx palate appeared dry. Unable to get a Mallampati score. No gross jugular venous distention. NECK: Grossly, there were no palpable lymph nodes in the supraclavicular or submandibular lymph node chains. LUNGS: Auscultation of both lung de la fuente significant for diminished bilateral breath sounds, bilateral rhonchi. Slightly prolonged expiratory phase. No wheezing. HEART: Heart sounds 1 and 2 are heard. They were regular in rate and rhythm at the time of my evaluation without overt rubs or murmurs. ABDOMEN: Soft, full, bowel sounds are positive, nontender, no palpable hepatosplenomegaly. EXTREMITIES: Without overt digital clubbing or cyanosis. No pedal edema. Pedal pulses are 2+ bilaterally. NEUROLOGIC: Pupils are equal, round, about 4 mm, reactive to light. Extraocular muscle movements are intact. He has spontaneous movements to all 4 extremities, appears to have some kind of contracture to the left upper extremity, but he could raise it up to directions and squeeze my hand with good power bilaterally. SKIN: Normal turgor in the areas examined without overt cellulitis or rash. Please see the wound care nurse's notes for full description of the skin as appropriate. LABORATORY DATA: From my review is as follows: Admission white cell count 6300, hemoglobin 11.7, hematocrit 35.3, platelet counts 208. No manual differential. D-dimer was elevated at 1216. INR was 1.09. Serum sodium was 135, potassium 3.9, chloride 102, bicarbonate 21, BUN 22, creatinine 1.3, glucose 144. Lactic acid level within normal limits. Liver function tests essentially within normal limits. CPK was up at 1034. LDH was up at 308. CRP was slightly elevated at 5.5. Procalcitonin was within normal limits. Urinalysis shows trace leukocyte esterase with 24 white cells per high power field. Tylenol, aspirin levels within normal limits. Urine drug screen was presumptive to negative. Alcohol level was within normal limits. Urine culture in lab, no growth so far. Chest x-ray essentially shows a right mid lung zone area of pneumonia or atelectasis. There is borderline to gross cardiomegaly, no gross pneumothorax, slightly increased interstitial markings bilaterally consistent with mild interstitial lung disease. A CT scan of the brain was done at presentation, no acute intracranial abnormality, but evidence of possible mastoiditis and otitis media. ASSESSMENT: 1. Acute hypoxemic respiratory failure. 2. Right lung pneumonia. 3. COVID-19 infection. 4. History of schizophrenia. 5. Systemic inflammatory response syndrome. 6. Anemia that is microcytic. 7. Mild hyponatremia. 8. Mild metabolic acidosis. 9. Elevated serum creatinine kinase. 10. Elevated inflammatory markers with elevated D-dimer, CRP, possibly consistent with coronavirus-19 infection. 11. Urinary tract infection. PLAN: I will keep him on supplemental oxygen via Vapotherm system. He will be continued in airborne and contact precautions. We will trend the inflammatory markers to see which direction they are trending as well as follow him clinically. He will be placed on vitamin C and zinc supplementation. We will continue empiric community-acquired pneumonia therapy all the same. Infectious Disease consultation will be of benefit. He may be a candidate down the line for a product such as Actemra, possibly Remdesivir, possibly convalescent serum, hopefully, he does not decompensate to that point. Aspiration precautions will be maintained. Oral nutrition will be the feeding modality of choice. We will trend the inflammatory markers again. I will also repeat the chest x-ray in about 48 hours. I do feel that the workup should ultimately be done for possible acute cerebrovascular accident in this gentleman with bipolar disease and some bothersome lateralizing signs. He is appropriately on DVT prophylaxis. He will be placed on GI prophylaxis. Flu and pneumonia vaccination will be addressed per protocol. Thank you very much for the consult. We will follow along and make further recommendations as the picture progresses/becomes clearer. He can be observed in the COVID unit for now. If he decompensates, he will be transferred to the Critical Care Unit. JOB# [id number] KHUSHBU/AHMET GHOSH
[2020-02-29] MEDS: ACETAMINOPHEN 325 MG TAB PO PRN (05:41)
[2020-02-29] MEDS: HEPARIN 5,000 UNIT/1 ML VIAL SUB-Q SCH ×3 (05:46→22:27)
[2020-02-29] MEDS: AMPICILLIN/SULBACTA 3GM/100ML 3 GM/100 ML BAG IV SCH ×4 (08:39→23:38)
[2020-02-29] MEDS: AZITHROMYCIN 250 MG TAB PO SCH (09:26)
[2020-02-29] MEDS: PANTOPRAZOLE 20 MG TAB PO SCH ×2 (09:26→22:26)
[2020-02-29] MEDS: DIVALPROEX ER 500 MG TAB PO SCH (09:26)
[2020-02-29] MEDS: ASCORBIC ACID 500 MG TAB PO SCH ×2 (09:27→22:26)
[2020-02-29] MEDS: PALIPERIDONE ER 3 MG TAB PO SCH (09:27)
[2020-02-29] MEDS: ZINC SULFATE 220 MG CAP PO SCH ×2 (09:27→22:26)
--- NOTE | 2020-02-29 09:36 | XRay Report ---
CHEST 1 VIEW 02/29/2020 8:26 AM INDICATION / CLINICAL INFORMATION: pneumonia. COMPARISON: 1 view of the chest from 02/25/20. FINDINGS: SUPPORT DEVICES: None. HEART / MEDIASTINUM: No significant abnormality. LUNGS / PLEURA: Bilateral airspace opacities are slightly worse. No significant pleural effusion. No pneumothorax. ADDITIONAL FINDINGS: No significant additional findings. IMPRESSION: 1. Slightly worse bilateral pneumonia. Signer Name: Sony Nice MD Signed: 02/29/2020 9:32 AM Workstation Name: [id number]
[2020-02-29] MEDS: METOPROLOL TARTRATE 25 MG TAB PO SCH ×4 (10:17→22:41)
--- NOTE | 2020-02-29 10:24 | Progress Note ---
Assessment and Plan Cultures: Urine culture 02/25/2020 E faecalis Assessment: 69 years old male with history of asthma, bipolar disorder and schizophrenia, [facility], admitted on 02/25/2020 due to 48 hours history of altered mental status with confusion:: #SIRS: with persistent high fever 103 today ?COVID ?UTI #COVID pneumonia: COVID test positive. There may be a component of bacterial pneumonia, pro-Justin 0.3. Chest x-ray with right patchy infiltrates. Inflam matory markers mildly elevated: Ferritin 117 (NORMAL multiple times), d-dimer 1216, CRP 5.5. No evidence of severe COVID. Currently on 2 L nasal cannula oxygen #Acute hypoxemic resp failure: on HFO2, CXR worsening pneumonia on CXR #Acute encephalopathy: Likely due to COVID. CT shows possible left mastoiditis and left otitis media. #Left mastoiditis and left otitis media: Per CT #Mild UTI: Urine culture grew 10,000-100,000 colonies of usual skin tanya Recommendations: Obtain CBC, CMP and markers today Obtain blood culture now Start solumedrol trial - 60 mg IV q 8 hour - Discussed with Dr Casanova Obtain TTE Continue COVID isolation precautions per [facility] protocol Stop ceftriaxone and azithromycin Start unasyn to cover E faecalis UTI Obtain brain MRI when stable Will follow Linda Gottlieb MD Infectious Diseases Embroidery Worker [facility] [place], [facility] [phone] O [phone] Subjective Date of service: 02/29/20 Objective - Constitutional Vitals: Vital Signs Temp Pulse Resp BP Pulse Ox 98.5 F 83 26 H 132/74 95 02/29/20 10:17 02/29/20 10:17 02/29/20 10:17 02/29/20 10:17 02/29/20 10:17 Temperature -Last 24 Hours Temperature 98.5 F Temperature 103.1 F Temperature 99.2 F Temperature 100.6 F Temperature 102.8 F Temperature 102.6 F Temperature 99.7 F - Labs CBC & Chem 7: 02/26/20 03:57 02/28/20 09:30 Labs: Abnormal lab results 02/28/20 02/28/20 Range/Units 09:30 Unknown D-Dimer 1211.40 H (0-234) ng/mlDDU Glucose 162 H (75-100) mg/dL Lactate Dehydrogenase 399 H (91-180) units/L C-Reactive Protein 13.30 H (0.00-1.30) mg/dL
--- NOTE | 2020-02-29 10:47 | Progress Note ---
Assessment and Plan Assessment and plan: Sepsis. Etiology secondary to pneumonia and UTI. Follow-up blood and urine cultures. COVID-19 infection. PCR positive on 02/25/2020. Right upper lobe pneumonia. Continue to follow serial chest x-ray and antibiotics. ID consulted. Acute hypoxemic respiratory failure. Etiology secondary to above. Continue O2 to maintain sats greater than 92%. BiPAP as clinically indicated. UTI. Continue IV antibiotics and follow-up urine cultures. Toxic metabolic encephalopathy. Etiology secondary to above. Continue to treat underlying cause. Mastoiditis/left otitis media 02/27/2020. Continue COVID isolation precautions. Ceftriaxone and azithromycin IV per ID recommendations. MRI brain. Monitor inflammatory markers. D-dimer 1216, LDH 308, CRP 5.5 and ferritin 117. Patient currently with high flow nasal [id number] L/min FiO2 35%. Pulmonary consulted. 02/28/2020. Patient currently with HFNC--35 L/min with FiO2 35%. Follow-up repeat inflammatory markers today. Continue antibiotics of ceftriaxone and azithromycin. Follow-up MRI brain. 02/29/2020. Consider IV Solu-Medrol per pulmonary. Patient currently with HFNC--35 L/min with FiO2 35% satting 95%. Follow-up inflammatory markers. Check echocardiogram. ID changed antibiotics from ceftriaxone/azithromycin to Unasyn to cover for the faecalis UTI. MRI brain when stable. History Interval history: No new issues overnight. Patient still with spiking temps. Hospitalist Physical - Constitutional Vitals: Temp Pulse Resp BP Pulse Ox 98.5 F 83 26 H 132/74 95 02/29/20 10:02/29/20 10:02/29/20 10:17 02/29/20 10:02/29/20 10:17 General appearance: Present: disheveled - EENT Eyes: Present: PERRL, EOM intact ENT: hearing intact, clear oral mucosa, dentition normal - Neck Neck: Present: supple, normal ROM - Respiratory Respiratory effort: normal Respiratory: bilateral: CTA - Cardiovascular Rhythm: regular Heart Sounds: Present: S1 & S2. Absent: gallop, rub - Extremities Extremities: no ischemia, No edema, Full ROM - Abdominal General gastrointestinal: soft, non-tender, non-distended, normal bowel sounds - Integumentary Integumentary: Present: clear, warm, dry - Neurologic Neurologic: CNII-XII intact, moves all extremities HEART Score - HEART Score Troponin: Troponin T < 0.010 ng/mL (0.00-0.029) 02/25/20 20:16 Results - Labs CBC & Chem 7: 02/26/20 03:57 02/28/20 09:30 Labs: Laboratory Last Values WBC 6.0 K/mm3 (4.5-11.0) 02/26/20 03:57 RBC 3.95 M/mm3 (3.65-5.03) 02/26/20 03:57 Hgb 10.9 gm/dl (11.8-15.2) L 02/26/20 03:57 Hct 32.8 % (35.5-45.6) L 02/26/20 03:57 MCV 83 fl (84-94) L 02/26/20 03:57 MCH 28 pg (28-32) 02/26/20 03:57 MCHC 33 % (32-34) 02/26/20 03:57 RDW 17.6 % (13.2-15.2) H 02/26/20 03:57 Plt Count 199 K/mm3 (140-440) 02/26/20 03:57 Lymph % (Auto) 10.3 % (13.4-35.0) L 02/26/20 03:57 [place] % (Auto) 5.7 % (0.0-7.3) 02/26/20 03:57 Eos % (Auto) 0.1 % (0.0-4.3) 02/26/20 03:57 Baso % (Auto) 0.2 % (0.0-1.8) 02/26/20 03:57 Lymph # 0.6 K/mm3 (1.2-5.4) L 02/26/20 03:57 [place] # 0.3 K/mm3 (0.0-0.8) 02/26/20 03:57 Eos # 0.0 K/mm3 (0.0-0.4) 02/26/20 03:57 Baso # 0.0 K/mm3 (0.0-0.1) 02/26/20 03:57 Seg Neutrophils % 83.7 % (40.0-70.0) H 02/26/20 03:57 Seg Neutrophils # 5.0 K/mm3 (1.8-7.7) 02/26/20 03:57 PT 14.2 Sec. (12.2-14.9) 02/26/20 03:57 INR 1.09 (0.87-1.13) 02/26/20 03:57 D-Dimer 1211.40 ng/mlDDU (0-234) H 02/28/20 Unknown Sodium 139 mmol/L (137-145) 02/26/20 03:57 Potassium 3.8 mmol/L (3.6-5.0) 02/26/20 03:57 Chloride 105.6 mmol/L (98-107) 02/26/20 03:57 Carbon Dioxide 20 mmol/L (22-30) L 02/26/20 03:57 Anion Gap 17 mmol/L 02/26/20 03:57 BUN 18 mg/dL (9-20) 02/26/20 03:57 Creatinine 1.0 mg/dL (0.8-1.5) 02/26/20 03:57 Estimated GFR > 60 ml/min 02/26/20 03:57 BUN/Creatinine Ratio 18 % 02/26/20 03:57 Glucose 162 mg/dL (75-100) H 02/28/20 09:30 Lactic Acid 1.60 mmol/L (0.7-2.0) 02/25/20 20:16 Calcium 8.0 mg/dL (8.4-10.2) L 02/26/20 03:57 Ferritin 210.1 ng/mL (13.0-400.0) 02/28/20 15:39 Total Bilirubin 0.50 mg/dL (0.1-1.2) 02/25/20 20:16 AST 32 units/L (5-40) 02/25/20 20:16 ALT 19 units/L (7-56) 02/25/20 20:16 Alkaline Phosphatase 33 units/L (35-129) L 02/25/20 20:16 Ammonia 42.0 umol/L (25-60) 02/25/20 20:16 Lactate Dehydrogenase 399 units/L (91-180) H 02/28/20 09:30 Total Creatine Kinase 1034 units/L (55-170) H 02/25/20 20:16 Troponin T < 0.010 ng/mL (0.00-0.029) 02/25/20 20:16 C-Reactive Protein 13.30 mg/dL (0.00-1.30) H 02/28/20 09:30 Total Protein 5.9 g/dL (6.3-8.2) L 02/25/20 20:16 Albumin 3.5 g/dL (3.9-5) L 02/25/20 20:16 Albumin/Globulin Ratio 1.5 % 02/25/20 20:16 Procalcitonin 0.22 ng/mL (<0.15) 02/29/20 04:56 Urine Color Yellow (Yellow) 02/25/20 21:12 Urine Turbidity Clear (Clear) 02/25/20 21:12 Urine pH 6.0 (5.0-7.0) 02/25/20 21:12 Ur Specific [place] 1.023 (1.003-1.030) 02/25/20 21:12 Urine Protein 100 mg/dl mg/dL (Negative) 02/25/20 21:12 Urine Glucose (UA) 50 mg/dL (Negative) 02/25/20 21:12 Urine Ketones Neg mg/dL (Negative) 02/25/20 21:12 Urine Blood Lg (Negative) 02/25/20 21:12 Urine Nitrite Neg (Negative) 02/25/20 21:12 Urine Bilirubin Neg (Negative) 02/25/20 21:12 Urine Urobilinogen 4.0 mg/dL (<2.0) 02/25/20 21:12 Ur Leukocyte Esterase Tr (Negative) 02/25/20 21:12 Urine WBC (Auto) 24.0 /HPF (0.0-6.0) H 02/25/20 21:12 Urine RBC (Auto) 2.0 /HPF (0.0-6.0) 02/25/20 21:12 Urine Mucus Few /HPF 02/25/20 21:12 Urine Yeast (Budding) Few /HPF 02/25/20 21:12 Salicylates < 0.3 mg/dL (2.8-20.0) L 02/25/20 20:16 Urine Opiates Screen Presumptive negative 02/25/20 Unknown Urine Methadone Screen Presumptive negative 02/25/20 Unknown Acetaminophen < 5.0 ug/mL (10.0-30.0) L 02/25/20 20:16 Ur Barbiturates Screen Presumptive negative 02/25/20 Unknown Ur Phencyclidine Scrn Presumptive negative 02/25/20 Unknown Ur Amphetamines Screen Presumptive negative 02/25/20 Unknown U Benzodiazepines Scrn Presumptive negative 02/25/20 Unknown Urine Cocaine Screen Presumptive negative 02/25/20 Unknown U Marijuana (THC) Screen Presumptive negative 02/25/20 Unknown Drugs of Abuse Note Disclamer 02/25/20 Unknown Plasma/Serum Alcohol < 0.01 % (0-0.07) 02/25/20 20:16 Coronavirus (PCR) Positive (Negative) A 02/25/20 07:45 Microbiology: Microbiology 02/29/20 07:54 Peripheral/Venous Blood Culture - Preliminary Culture in Progress 02/29/20 08:47 Peripheral/Venous Blood Culture - Preliminary Culture in Progress 02/25/20 21:12 Urine,Clean Catch Urine Culture - Final Enterococcus Faecalis Velasquez/IV: Voiding Method Condom Catheter IV Catheter Type [left ac] Peripheral IV IV Catheter Type [Left Hand] Peripheral IV Active Medications - Current Medications Current Medications: Generic Name Dose Route Start Last Admin Trade Name Freq PRN Reason Stop Dose Admin Acetaminophen 650 mg 02/25/20 23:51 02/29/20 05:41 Tylenol PO 650 mg Q4H PRN Administration Pain MILD(1-3)/Fever >100.5/RAMOS Albuterol 2.5 mg 02/26/20 02:29 Proventil IH Q4HRT PRN Shortness Of Breath Ascorbic Acid 500 mg 02/28/20 15:00 02/29/20 09:27 Vitamin C PO 500 mg BID SABA Administration Azithromycin 500 mg 02/27/20 10:00 02/29/20 09:26 Zithromax PO 03/01/20 10:01 500 mg QDAY SABA Administration Divalproex Sodium 500 mg 02/26/20 10:00 02/29/20 09:26 Depakote Er PO 500 mg QDAY SABA Administration Heparin Sodium (Porcine) 5,000 unit 02/26/20 14:00 02/29/20 05:46 Heparin SUB-Q 5,000 unit Q8HR SABA Administration Sodium Chloride 1,000 mls @ 75 mls/hr 02/25/20 23:45 02/28/20 06:41 Nacl 0.9% 1000 Ml IV 125 mls/hr DIRECT SABA Administration Ampicillin Sodium/Sulbactam Sodium 3 gm in 100 mls @ 200 mls/hr 02/29/20 08:00 02/29/20 08:39 Unasyn/Ns 3 Gm/100 Ml IV 200 mls/hr Q6HR SABA Administration Protocol Magnesium Hydroxide 30 ml 02/25/20 23:51 Milk Of Magnesia PO Q4H PRN Constipation Metoprolol Tartrate 25 mg 02/27/20 22:00 02/29/20 10:17 Metoprolol PO 25 mg BID SABA Administration Ondansetron HCl 4 mg 02/25/20 23:51 Zofran IV Q8H PRN Nausea And Vomiting Paliperidone 12 mg 02/27/20 16:00 02/29/20 09:27 Invega PO 12 mg QDAY SABA Administration Pantoprazole Sodium 20 mg 02/26/20 10:00 02/29/20 09:26 Protonix PO 20 mg BID SABA Administration Sodium Chloride 10 ml 02/26/20 10:00 02/29/20 10:18 Sodium Chloride Flush Syringe 10 Ml IV 10 ml BID SABA Administration Sodium Chloride 10 ml 02/25/20 23:51 Sodium Chloride Flush Syringe 10 Ml IV PRN PRN LINE FLUSH Zinc Sulfate 220 mg 02/28/20 15:00 02/29/20 09:27 Zinc Sulfate PO 220 mg BID SABA Administration Nutrition/Malnutrition Assess - Dietary Evaluation Nutrition/Malnutrition Findings: Nutrition Notes Start: 02/26/20 12:55 Freq: Status: Active Protocol: Document 02/26/20 12:55 LM (Rec: 02/26/20 13:00 LM [id number]) Nutrition Notes Need for Assessment generated from: membership advisor,MST Initial or Follow up Brief Note Other Pertinent Diagnosis pneu, UTI, AMS, asthma, schizophrenia Current Diet regular Labs/Tests BG 194 Pertinent Medications NaCl at 125ml/hr KCl at 100ml/hr Height 5 ft 8 in Weight 101.7 kg [place] Body Weight (kg) 70.00 BMI 34.0 Weight Status Obese Subjective/Other Information RN screen for MST. Unable to reach pt 2x. Pt has weak finding fastener strength. 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
[2020-02-29] MEDS: methylPREDNISolone Sod Succinate 40 MG/1 ML INJ IV SCH ×2 (13:09→22:26)
--- NOTE | 2020-02-29 13:21 | Progress Note ---
Assessment and Plan Pt currently in NSR with PVCs, intermittent bouts of AFib RVR noted overnight. Optimize HR - increase PO lopressor to 25mg TID with hold parameters. Pt wound benefit from salvage determiner systemic AC in setting of parox AFib. Initiate Eliquis 5mg BID. Check thyroid profile. Will plan to obtain echocardiogram as OP as pt is COVID-19 positive and we do not believe that echocardiogram would significantly alter the pt's clinical course at this time. The patient has been seen in conjunction with Dr. Mirza Kingsley who agrees with the assessment and plan of care. - Patient Problems (1) COVID-19 Current Visit: Yes Status: Acute (2) Pneumonia Current Visit: Yes Status: Acute Qualifiers: Pneumonia type: due to unspecified organism Laterality: unspecified laterality Lung location: unspecified part of lung Qualified Code(s): J18.9 - Pneumonia, unspecified organism (3) Respiratory failure with hypoxia Current Visit: Yes Status: Acute Qualifiers: Chronicity: acute Qualified Code(s): J96.01 - Acute respiratory failure with hypoxia (4) Sepsis Current Visit: Yes Status: Suspected (5) UTI (urinary tract infection) Current Visit: Yes Status: Suspected Qualifiers: Urinary tract infection type: acute cystitis Hematuria presence: with hematuria Qualified Code(s): N30.01 - Acute cystitis with hematuria (6) Paroxysmal atrial fibrillation Current Visit: Yes Status: Chronic (7) Psychiatric disorder Current Visit: Yes Status: Chronic Subjective Date of service: 02/29/20 Principal diagnosis: COVID 19; parox AFib RVR Interval history: pt resting in bed, on HiFlo NC. In SR with PVCs on tele with bouts of AFib RVR noted overnight. Objective Last Vital Signs Temp 97.9 F 02/29/20 11:21 Pulse 77 02/29/20 11:21 Resp 24 02/29/20 11:21 BP 114/67 02/29/20 11:21 Pulse Ox 95 02/29/20 11:21 - Physical Examination General: Other (on HiFlo NC) HEENT: Positive: PERRL, EOMI Neck: Positive: neck supple Cardiac: Positive: Reg Rate and Rhythm, S1/S2 Lungs: Positive: Decreased Breath Sounds, Oxygen Neuro: Positive: Grossly Intact Abdomen: Positive: Soft, Active Bowel Sounds Extremities: Absent: normal - Telemetry EKG Rhythm: Sinus Rhythm
[2020-02-29 16:06] LABS: Basophils % (Auto) 0.1 % (0.0-1.8); Eosinophils % (Auto) 0.7 % (0.0-4.3); Hemoglobin 11.2 gm/dl (11.8-15.2); Lymphocytes # (Auto) 0.3 K/mm3 (1.2-5.4); Lymphocytes % (Auto) 6.4 % (13.4-35.0); Mean Corpuscular HGB Conc 33 % (32-34); Mean Corpuscular Volume 83 fl (84-94); Monocytes # (Auto) 0.2 K/mm3 (0.0-0.8); Monocytes % (Auto) 4.7 % (0.0-7.3); Platelet Count 241 K/mm3 (140-440); Red Blood Count 4.09 M/mm3 (3.65-5.03); Red Cell Distribution Width 17.8 % (13.2-15.2)
[2020-02-29 16:16] LABS: Alanine Aminotransferase 49 units/L (7-56); BUN/Creatinine Ratio 20; Blood Urea Nitrogen 16 mg/dL (9-20); Calcium 7.8 mg/dL (8.4-10.2); Hemolysis Index 0
--- NOTE | 2020-02-29 16:24 | Progress Note ---
Assessment and Plan Acute hypoxemic resp failure: on HFO2, CXR reviewed- worsening infiltrates on CXR COVID pneumonia: COVID test positive Multifocal SIRS: with persistent high fevers Acute encephalopathy Left mastoiditis and left otitis media Mild UTI: Urine culture grew 10,000-100,000 colonies of usual skin tanya- E faecalis h/o Asthma -continue airborne, droplet and contact isolation for COVID-19 -trend inflammatory markers per facility protocol -Vit C, Vitamin D -give a dose of furosemide, start steroids -gentle diuresis while monitoring renal function, hemodynamics and electrolyte profile -follow up CXR and ABG. -If CXR continues to show worsening of infiltrates will plan on getting speech evaluation for dysphagia to r/o silent aspiration -continue to wean supplemental oxygen for target O2 sats > 92% -awake proning as tolerated -continue bronchodilators with pulmonary hygiene per RT - accuchecks with glycemic control per SSI (While critically ill target blood glucose of 140-180 mg/dL; avoid hypoglycemia) - avoid benzodiazepines, reduce the possibility of delirium - prn analgesia per CPOT score - Maintenance of sleep-wake cycle, avoid delirium - Antibiotics per ID- on Unasyn for E.faecalis UTI - VTE prophylaxis-Heparin -stress ulcer prophylaxis while he is on steroids and high flow oxygen -mobility protocol, off loading and skin assessment for pressure ulcer prevention -continue other care per attending / other consultants Discussed with ID Plan for echocardiogram and MRI of his brain Can get MRI brain if he is able to maintain oxygen saturations on 100% NRBM .... Re-evaluate in am & prn Subjective Date of service: 02/29/20 Principal diagnosis: COVID 19; parox AFib RVR Interval history: Patient is seen today for: acute hypoxic respiratory failure; COVID infection; multifocal pneumonia; acute toxic-metabolic encephalopathy Seen and examined at bedside; 24hour events reviewed; nursing and respiratory care staff consulted; no adverse overnight events reported to me; Remains on high flow oxygen 35L and 35 % with oxygen saturations of 97% Not really interactive, unclear what his baseline is. No reported fevers today , no diarrhea, no vomiting. Per RN he does talk, but I did not witness it Objective Vital Signs - 12hr 02/29/20 02/29/20 02/29/20 05:38 09:41 09:44 Temperature 103.1 F H Pulse Rate 100 H Pulse Rate [ From Monitor] Respiratory 18 Rate Blood Pressure 124/81 132/74 O2 Sat by Pulse 90 95 Oximetry 02/29/20 02/29/20 02/29/20 10:00 10:17 11:21 Temperature 98.5 F 97.9 F Pulse Rate 83 77 Pulse Rate [ 87 From Monitor] Respiratory 26 H 24 Rate Blood Pressure 132/74 114/67 O2 Sat by Pulse 95 95 Oximetry Constitutional: lethargic, other (Obese man, atraumatic, normocephalic) Eyes: non-icteric, other (GHAZALA) Neck: supple, no JVD, other (large neck circumfernece, grunting respirations) Effort: mildly labored Ascultation: Bilateral: diminished breath sounds, rhonchi Cardiovascular: regular rate and rhythm, other (S1,S2) Gastrointestinal: normoactive bowel sounds, non-tender, non-distended Integumentary: rash Extremities: no cyanosis, no edema Neurologic: non-focal exam (grossly, will move extemities), pupils equal and round, other (not obeying commands for me) Psychiatric: other (unable to assess secondary to mental status) CBC and BMP: 03/02/20 01:20 03/02/20 01:20 ABG, PT/INR, D-dimer: PT/INR, D-dimer PT 14.2 Sec. (12.2-14.9) 02/26/20 03:57 INR 1.09 (0.87-1.13) 02/26/20 03:57 D-Dimer 1211.40 ng/mlDDU (0-234) H 02/28/20 Unknown Abnormal lab findings: Abnormal Labs 02/25/20 02/25/20 02/25/20 07:45 20:16 20:16 Hgb 11.7 L Hct 35.3 L MCV 83 L MCH 27 L RDW 17.2 H Lymph % (Auto) 8.0 L [place] % (Auto) 8.5 H Lymph # 0.5 L Seg Neutrophils % 83.4 H D-Dimer Sodium 135 L Carbon Dioxide 21 L BUN 22 H Glucose 176 H Calcium 8.0 L AST Alkaline Phosphatase 33 L Lactate Dehydrogenase Total Creatine Kinase 1034 H C-Reactive Protein Total Protein 5.9 L Albumin 3.5 L Urine WBC (Auto) Salicylates Acetaminophen Coronavirus (PCR) Positive A 02/25/20 02/25/20 02/25/20 20:16 20:16 21:12 Hgb Hct MCV MCH RDW Lymph % (Auto) [place] % (Auto) Lymph # Seg Neutrophils % D-Dimer Sodium Carbon Dioxide BUN Glucose Calcium AST Alkaline Phosphatase Lactate Dehydrogenase Total Creatine Kinase C-Reactive Protein Total Protein Albumin Urine WBC (Auto) 24.0 H Salicylates < 0.3 L Acetaminophen < 5.0 L Coronavirus (PCR) 02/25/20 02/25/20 02/26/20 23:03 23:03 03:57 Hgb 10.9 L Hct 32.8 L MCV 83 L MCH RDW 17.6 H Lymph % (Auto) 10.3 L [place] % (Auto) Lymph # 0.6 L Seg Neutrophils % 83.7 H D-Dimer 1216.06 H Sodium Carbon Dioxide BUN Glucose 144 H Calcium AST Alkaline Phosphatase Lactate Dehydrogenase 308 H Total Creatine Kinase C-Reactive Protein 5.50 H Total Protein Albumin Urine WBC (Auto) Salicylates Acetaminophen Coronavirus (PCR) 02/26/20 02/28/20 02/28/20 03:57 09:30 Unknown Hgb Hct MCV MCH RDW Lymph % (Auto) [place] % (Auto) Lymph # Seg Neutrophils % D-Dimer 1211.40 H Sodium Carbon Dioxide 20 L BUN Glucose 194 H 162 H Calcium 8.0 L AST Alkaline Phosphatase Lactate Dehydrogenase 399 H Total Creatine Kinase C-Reactive Protein 13.30 H Total Protein Albumin Urine WBC (Auto) Salicylates Acetaminophen Coronavirus (PCR) 02/29/20 02/29/20 15:30 15:30 Hgb 11.2 L Hct 34.0 L MCV 83 L MCH 27 L RDW 17.8 H Lymph % (Auto) 6.4 L [place] % (Auto) Lymph # 0.3 L Seg Neutrophils % 88.1 H D-Dimer Sodium Carbon Dioxide BUN Glucose 142 H Calcium 7.8 L AST 58 H Alkaline Phosphatase 30 L Lactate Dehydrogenase Total Creatine Kinase C-Reactive Protein Total Protein 6.1 L Albumin 3.0 L Urine WBC (Auto) Salicylates Acetaminophen Coronavirus (PCR)
[2020-02-29] MEDS ORDERED: FUROSEMIDE 40 MG/4 ML INJ IV ONE (16:26)
[2020-02-29 18:54] LABS: ABG Base Excess -0.4 mmol/L (-2.0-3.0); ABG HCO3 23.3 mmol/L (20.0-26.0); ABG Methemoglobin 0.5 % (0.0-1.5); ABG Oxygen Saturation 95.6 % (95.0-99.0); ABG PCO2 34.9 mm Hg; ABG PH 7.442 pH Units (7.350-7.450); ABG PO2 73.6 mm Hg (80.0-90.0)
[2020-03-01] MEDS: AMPICILLIN/SULBACTA 3GM/100ML 3 GM/100 ML BAG IV SCH ×3 (05:13→17:34)
[2020-03-01] MEDS: HEPARIN 5,000 UNIT/1 ML VIAL SUB-Q SCH ×3 (05:14→21:32)
[2020-03-01] MEDS: methylPREDNISolone Sod Succinate 40 MG/1 ML INJ IV SCH ×3 (05:14→21:30)
[2020-03-01] MEDS: PANTOPRAZOLE 20 MG TAB PO SCH ×2 (09:23→21:29)
[2020-03-01] MEDS: METOPROLOL TARTRATE 25 MG TAB PO SCH ×3 (09:23→21:30)
[2020-03-01] MEDS: PALIPERIDONE ER 3 MG TAB PO SCH (09:23)
[2020-03-01] MEDS: ZINC SULFATE 220 MG CAP PO SCH ×2 (09:23→21:33)
[2020-03-01] MEDS: ASCORBIC ACID 500 MG TAB PO SCH ×2 (09:23→21:30)
--- NOTE | 2020-03-01 10:02 | Progress Note ---
Assessment and Plan Cultures: Urine culture 02/25/2020 E faecalis Blood culture 02/29/2020 no growth today Assessment: 69 years old male with history of asthma, bipolar disorder and schizophrenia, resident of a [facility], admitted on 02/25/2020 due to 48 hours history of altered mental status with confusion:: #SIRS: with persistent high fever 103 NO fever for 24h ?COVID ?UTI #COVID pneumonia: COVID test positive. There may be a component of bacterial pneumonia, pro-Justin 0.3. Chest x-ray with right patchy infiltrates. Inflammatory markers mildly elevated: Ferritin 117 (NORMAL multiple times), d- dimer 1216, CRP 5.5-->13. No evidence of severe COVID. #Acute hypoxemic resp failure: on HFO2, CXR worsening pneumonia on CXR ?etiology ?COPD exacerbation ?CHF exacerbation, doubt cytokine storm with normal ferritin. Currently on HFO2 35%/35L #Acute encephalopathy: Likely due to COVID. CT shows possible left mastoiditis and left otitis media. #Left mastoiditis and left otitis media: Per CT #Mild UTI: Urine culture grew 10,000-100,000 colonies of usual skin tanya Recommendations: F/u blood culture Continue solumedrol - 60 mg IV q 8 hour - Discussed with Dr Casanova Obtain TTE - pending Continue COVID isolation precautions per [facility] protocol Continue unasyn to cover E faecalis UTI Day 2 of 3 Obtain brain MRI when stable Will follow Linda Gottlieb MD Infectious Diseases Health Director [facility] ([facility]) M [phone] O [phone] Subjective Date of service: 03/01/20 Principal diagnosis: COVID 19; parox AFib RVR Objective - Constitutional Vitals: Vital Signs Temp Pulse Resp BP Pulse Ox 98.3 F 81 18 133/77 95 03/01/20 04:20 03/01/20 09:55 03/01/20 07:35 03/01/20 04:20 03/01/20 08:00 Temperature -Last 24 Hours Temperature 98.3 F Temperature 98.8 F Temperature 98.0 F Temperature 97.9 F Temperature 98.5 F - Labs CBC & Chem 7: 02/29/20 15:30 02/29/20 15:30 Labs: Abnormal lab results 02/27/20 02/28/20 02/29/20 Range/Units 12:01 11:36 15:30 Hgb 11.2 L (11.8-15.2) gm/dl Hct 34.0 L (35.5-45.6) % MCV 83 L (84-94) fl MCH 27 L (28-32) pg RDW 17.8 H (13.2-15.2) % Lymph % (Auto) 6.4 L (13.4-35.0) % Lymph # 0.3 L (1.2-5.4) K/mm3 Seg Neutrophils % 88.1 H (40.0-70.0) % ABG pO2 (80.0-90.0) mm Hg ABG Hemoglobin (14.0-18.0) gm/dl Oxyhemoglobin (95.0-99.0) % Glucose (75-100) mg/dL POC Glucose 128 H 156 H (70-105) Calcium (8.4-10.2) mg/dL AST (5-40) units/L Alkaline Phosphatase (35-129) units/L Total Protein (6.3-8.2) g/dL Albumin (3.9-5) g/dL 02/29/20 02/29/20 02/29/20 Range/Units 15:30 17:50 18:30 Hgb (11.8-15.2) gm/dl Hct (35.5-45.6) % MCV (84-94) fl MCH (28-32) pg RDW (13.2-15.2) % Lymph % (Auto) (13.4-35.0) % Lymph # (1.2-5.4) K/mm3 Seg Neutrophils % (40.0-70.0) % ABG pO2 73.6 L (80.0-90.0) mm Hg ABG Hemoglobin 11.3 L (14.0-18.0) gm/dl Oxyhemoglobin 93.9 L (95.0-99.0) % Glucose 142 H (75-100) mg/dL POC Glucose 160 H (70-105) Calcium 7.8 L (8.4-10.2) mg/dL AST 58 H (5-40) units/L Alkaline Phosphatase 30 L (35-129) units/L Total Protein 6.1 L (6.3-8.2) g/dL Albumin 3.0 L (3.9-5) g/dL
--- NOTE | 2020-03-01 10:09 | Progress Note ---
Assessment and Plan Pt currently in NSR. Cont present cardiac management, including Lopressor TID and Eliquis. The patient has been seen in conjunction with Dr. Mirza Kingsley who agrees with the assessment and plan of care. - Patient Problems (1) COVID-19 Current Visit: Yes Status: Acute (2) Pneumonia Current Visit: Yes Status: Acute Qualifiers: Qualified Code(s): J18.9 - Pneumonia, unspecified organism (3) Respiratory failure with hypoxia Current Visit: Yes Status: Acute Qualifiers: Qualified Code(s): J96.01 - Acute respiratory failure with hypoxia (4) Sepsis Current Visit: Yes Status: Suspected (5) UTI (urinary tract infection) Current Visit: Yes Status: Suspected Qualifiers: Qualified Code(s): N30.01 - Acute cystitis with hematuria (6) Paroxysmal atrial fibrillation Current Visit: Yes Status: Chronic (7) Psychiatric disorder Current Visit: Yes Status: Chronic Subjective Date of service: 03/01/20 Principal diagnosis: COVID 19; parox AFib RVR Interval history: pt resting in bed, on HiFlo NC. In SR on tele. Objective Last Vital Signs Temp 98.3 F 03/01/20 04:20 Pulse 81 03/01/20 09:55 Resp 18 03/01/20 07:35 BP 133/77 03/01/20 04:20 Pulse Ox 95 03/01/20 08:00 - Physical Examination General: Other (on HiFlo NC) HEENT: Positive: PERRL, EOMI Neck: Positive: neck supple Cardiac: Positive: Reg Rate and Rhythm, S1/S2 Lungs: Positive: Decreased Breath Sounds, Oxygen Neuro: Positive: Grossly Intact Abdomen: Positive: Soft, Active Bowel Sounds Extremities: Absent: normal - Labs and Meds Cardiac Enzymes 02/29/20 Range/Units 15:30 AST 58 H (5-40) units/L CBC 02/29/20 Range/Units 15:30 WBC 4.6 (4.5-11.0) K/mm3 RBC 4.09 (3.65-5.03) M/mm3 Hgb 11.2 L (11.8-15.2) gm/dl Hct 34.0 L (35.5-45.6) % Plt Count 241 (140-440) K/mm3 Lymph # 0.3 L (1.2-5.4) K/mm3 [place] # 0.2 (0.0-0.8) K/mm3 Eos # 0.0 (0.0-0.4) K/mm3 Baso # 0.0 (0.0-0.1) K/mm3 Comprehensive Metabolic Panel 02/29/20 Range/Units 15:30 Sodium 138 (137-145) mmol/L Potassium 4.4 (3.6-5.0) mmol/L Chloride 101.3 (98-107) mmol/L Carbon Dioxide 23 (22-30) mmol/L BUN 16 (9-20) mg/dL Creatinine 0.8 (0.8-1.5) mg/dL Glucose 142 H (75-100) mg/dL Calcium 7.8 L (8.4-10.2) mg/dL AST 58 H (5-40) units/L ALT 49 (7-56) units/L Alkaline Phosphatase 30 L (35-129) units/L Total Protein 6.1 L (6.3-8.2) g/dL Albumin 3.0 L (3.9-5) g/dL - Telemetry EKG Rhythm: Sinus Rhythm
[2020-03-01 10:20] LABS: Free T4 (Free Thyroxine) 0.85 ng/dL (0.76-1.46)
--- NOTE | 2020-03-01 12:01 | Progress Note ---
Assessment and Plan Acute hypoxemic resp failure: on HFO2, CXR reviewed- worsening infiltrates on CXR COVID pneumonia: COVID test positive Multifocal SIRS Acute encephalopathy Left mastoiditis and left otitis media Mild UTI: Urine culture grew 10,000-100,000 colonies of usual skin tanya- E faecalis h/o Asthma -continue airborne, droplet and contact isolation for COVID-19 -trend inflammatory markers per facility protocol -Vit C, Vitamin D -Continue steroids -Accuchecks with glycemic control per SSI (While critically ill target blood glucose of 140-180 mg/dL; avoid hypoglycemia) -Gentle diuresis while monitoring renal function, hemodynamics and electrolyte profile -Follow up CXR continues to show worsening of infiltrates, plan on getting speech evaluation for dysphagia to r/o silent aspiration Reordered CXR for the morning -Continue to wean supplemental oxygen for target O2 sats > 92% -Awake proning as tolerated -Continue bronchodilators with pulmonary hygiene per RT - Avoid benzodiazepines, reduce the possibility of delirium - prn analgesia per CPOT score - Maintenance of sleep-wake cycle, avoid delirium - Antibiotics per ID- on Unasyn for E.faecalis UTI - VTE prophylaxis-Heparin -Stress ulcer prophylaxis while he is on steroids and high flow oxygen -Mobility protocol, off loading and skin assessment for pressure ulcer prevention -Continue other care per attending / other consultants Discussed with ID Plan for MRI of his brain Can get MRI brain if he is able to maintain oxygen saturations on 100% NRBM .... Re-evaluate in am & prn Subjective Date of service: 03/01/20 Principal diagnosis: COVID 19; parox AFib RVR Interval history: Patient is seen today for: acute hypoxic respiratory failure; COVID infection; multifocal pneumonia; acute toxic-metabolic encephalopathy Seen and examined at bedside; 24hour events reviewed; nursing and respiratory care staff consulted; no adverse overnight events reported to me; Remains on high flow oxygen 35L and 35 % with oxygen saturations of 97% No reported fevers today, no diarrhea, no vomiting. On steroids and received a dose of furosemide yesterday Objective - Exam Narrative Exam: Constitutional: lethargic, other (Obese man, atraumatic, norm ocephalic) Eyes: non-icteric, other (GHAZALA) Neck: supple, no JVD, other (large neck circumference, grunting respirations) Effort: mildly labored Ascultation: Bilateral: diminished breath sounds, rhonchi Cardiovascular: regular rate and rhythm, other (S1,S2) Gastrointestinal: normoactive bowel sounds, non-tender, non-distended Integumentary: rash Extremities: no cyanosis, no edema Neurologic: non-focal exam (grossly, will move extremities), pupils equal and round, other (not obeying commands for me) Psychiatric: other (unable to assess secondary to mental status) Vital Signs - 12hr 03/01/20 03/01/20 03/01/20 02:30 04:20 07:35 Temperature 98.3 F Pulse Rate 98 H Pulse Rate [ 81 From Monitor] Respiratory 21 18 Rate Blood Pressure 133/77 O2 Sat by Pulse 94 92 94 Oximetry 03/01/20 03/01/20 08:00 09:55 Temperature Pulse Rate 81 Pulse Rate [ From Monitor] Respiratory Rate Blood Pressure O2 Sat by Pulse 95 Oximetry CBC and BMP: 03/02/20 01:20 03/02/20 01:20 ABG, PT/INR, D-dimer: ABG ABG pH 7.442 pH Units (7.350-7.450) 02/29/20 18:30 ABG pCO2 34.9 mm Hg 02/29/20 18:30 ABG pO2 73.6 mm Hg (80.0-90.0) L 02/29/20 18:30 ABG O2 Saturation 95.6 % (95.0-99.0) 02/29/20 18:30 PT/INR, D-dimer PT 14.2 Sec. (12.2-14.9) 02/26/20 03:57 INR 1.09 (0.87-1.13) 02/26/20 03:57 D-Dimer 1211.40 ng/mlDDU (0-234) H 02/28/20 Unknown Abnormal lab findings: Abnormal Labs 02/25/20 02/25/20 02/25/20 07:45 20:16 20:16 Hgb 11.7 L Hct 35.3 L MCV 83 L MCH 27 L RDW 17.2 H Lymph % (Auto) 8.0 L [place] % (Auto) 8.5 H Lymph # 0.5 L Seg Neutrophils % 83.4 H D-Dimer ABG pO2 ABG Hemoglobin Oxyhemoglobin Sodium 135 L Carbon Dioxide 21 L BUN 22 H Glucose 176 H POC Glucose Calcium 8.0 L AST Alkaline Phosphatase 33 L Lactate Dehydrogenase Total Creatine Kinase 1034 H C-Reactive Protein Total Protein 5.9 L Albumin 3.5 L Urine WBC (Auto) Salicylates Acetaminophen Coronavirus (PCR) Positive A 02/25/20 02/25/20 02/25/20 20:16 20:16 21:12 Hgb Hct MCV MCH RDW Lymph % (Auto) [place] % (Auto) Lymph # Seg Neutrophils % D-Dimer ABG pO2 ABG Hemoglobin Oxyhemoglobin Sodium Carbon Dioxide BUN Glucose POC Glucose Calcium AST Alkaline Phosphatase Lactate Dehydrogenase Total Creatine Kinase C-Reactive Protein Total Protein Albumin Urine WBC (Auto) 24.0 H Salicylates < 0.3 L Acetaminophen < 5.0 L Coronavirus (PCR) 02/25/20 02/25/20 02/26/20 23:03 23:03 03:57 Hgb 10.9 L Hct 32.8 L MCV 83 L MCH RDW 17.6 H Lymph % (Auto) 10.3 L [place] % (Auto) Lymph # 0.6 L Seg Neutrophils % 83.7 H D-Dimer 1216.06 H ABG pO2 ABG Hemoglobin Oxyhemoglobin Sodium Carbon Dioxide BUN Glucose 144 H POC Glucose Calcium AST Alkaline Phosphatase Lactate Dehydrogenase 308 H Total Creatine Kinase C-Reactive Protein 5.50 H Total Protein Albumin Urine WBC (Auto) Salicylates Acetaminophen Coronavirus (PCR) 02/26/20 02/27/20 02/28/20 03:57 12:01 09:30 Hgb Hct MCV MCH RDW Lymph % (Auto) [place] % (Auto) Lymph # Seg Neutrophils % D-Dimer ABG pO2 ABG Hemoglobin Oxyhemoglobin Sodium Carbon Dioxide 20 L BUN Glucose 194 H 162 H POC Glucose 128 H Calcium 8.0 L AST Alkaline Phosphatase Lactate Dehydrogenase 399 H Total Creatine Kinase C-Reactive Protein 13.30 H Total Protein Albumin Urine WBC (Auto) Salicylates Acetaminophen Coronavirus (PCR) 02/28/20 02/28/20 02/29/20 11:36 Unknown 15:30 Hgb 11.2 L Hct 34.0 L MCV 83 L MCH 27 L RDW 17.8 H Lymph % (Auto) 6.4 L [place] % (Auto) Lymph # 0.3 L Seg Neutrophils % 88.1 H D-Dimer 1211.40 H ABG pO2 ABG Hemoglobin Oxyhemoglobin Sodium Carbon Dioxide BUN Glucose POC Glucose 156 H Calcium AST Alkaline Phosphatase Lactate Dehydrogenase Total Creatine Kinase C-Reactive Protein Total Protein Albumin Urine WBC (Auto) Salicylates Acetaminophen Coronavirus (PCR) 02/29/20 02/29/20 02/29/20 15:30 17:50 18:30 Hgb Hct MCV MCH RDW Lymph % (Auto) [place] % (Auto) Lymph # Seg Neutrophils % D-Dimer ABG pO2 73.6 L ABG Hemoglobin 11.3 L Oxyhemoglobin 93.9 L Sodium Carbon Dioxide BUN Glucose 142 H POC Glucose 160 H Calcium 7.8 L AST 58 H Alkaline Phosphatase 30 L Lactate Dehydrogenase Total Creatine Kinase C-Reactive Protein Total Protein 6.1 L Albumin 3.0 L Urine WBC (Auto) Salicylates Acetaminophen Coronavirus (PCR)
[2020-03-01] MEDS: DIVALPROEX ER 500 MG TAB PO SCH (12:55)
--- NOTE | 2020-03-01 14:22 | Progress Note ---
Assessment and Plan Assessment and plan: Sepsis. Etiology secondary to pneumonia and UTI. Follow-up blood and urine cultures. COVID-19 infection. PCR positive on 02/25/2020. Right upper lobe pneumonia. Continue to follow serial chest x-ray and antibiotics. ID consulted. Acute hypoxemic respiratory failure. Etiology secondary to above. Continue O2 to maintain sats greater than 92%. BiPAP as clinically indicated. UTI. Continue IV antibiotics and follow-up urine cultures. Toxic metabolic encephalopathy. Etiology secondary to above. Continue to treat underlying cause. Mastoiditis/left otitis media 02/27/2020. Continue COVID isolation precautions. Ceftriaxone and azithromycin IV per ID recommendations. MRI brain. Monitor inflammatory markers. D-dimer 1216, LDH 308, CRP 5.5 and ferritin 117. Patient currently with high flow nasal [id number] L/min FiO2 35%. Pulmonary consulted. 02/28/2020. Patient currently with HFNC--35 L/min with FiO2 35%. Follow-up repeat inflammatory markers today. Continue antibiotics of ceftriaxone and azithromycin. Follow-up MRI brain. 02/29/2020. Consider IV Solu-Medrol per pulmonary. Patient currently with HFNC--35 L/min with FiO2 35% satting 95%. Follow-up inflammatory markers. Check Echocardiogram. ID changed antibiotics from ceftriaxone/azithromycin to Unasyn to cover for the faecalis UTI. MRI brain when stable. 03/01/20 Patient with Covid-19 infection, acute respiratory failure and toxic metabolic encephalopathy. Fever yesterday. Still on high flow Oxygen. History Interval history: Fever Hospitalist Physical - Physical exam Narrative exam: GEN: Not in acute distress, obese, lying in bed HEENT: Normocephalic, atraumatic, Neck: supple, No JVD Lungs: Clear to auscultation bilaterally, heart;S1 and S2 reg, no murmurs, rubs or gallop Abd:soft, non tender, non distended, normal bowel sounds, Ext: awake,alert,oriented X 3, no clubbing, Neuro: Awake,alert,oriented X3,No focal neurological signs - Constitutional Vitals: Temp Pulse Resp BP Pulse Ox 99.5 F 85 18 108/60 93 03/01/20 13:19 03/01/20 13:15 03/01/20 13:19 03/01/20 13:15 05/19/20 13:19 General appearance: Present: disheveled HEART Score - HEART Score Troponin: Troponin T < 0.010 ng/mL (0.00-0.029) 02/25/20 20:16 Results - Labs CBC & Chem 7: 02/29/20 15:30 02/29/20 15:30 Labs: Laboratory Last Values WBC 4.6 K/mm3 (4.5-11.0) 02/29/20 15:30 RBC 4.09 M/mm3 (3.65-5.03) 02/29/20 15:30 Hgb 11.2 gm/dl (11.8-15.2) L 02/29/20 15:30 Hct 34.0 % (35.5-45.6) L 02/29/20 15:30 MCV 83 fl (84-94) L 02/29/20 15:30 MCH 27 pg (28-32) L 02/29/20 15:30 MCHC 33 % (32-34) 02/29/20 15:30 RDW 17.8 % (13.2-15.2) H 02/29/20 15:30 Plt Count 241 K/mm3 (140-440) 02/29/20 15:30 Lymph % (Auto) 6.4 % (13.4-35.0) L 02/29/20 15:30 [place] % (Auto) 4.7 % (0.0-7.3) 02/29/20 15:30 Eos % (Auto) 0.7 % (0.0-4.3) 02/29/20 15:30 Baso % (Auto) 0.1 % (0.0-1.8) 02/29/20 15:30 Lymph # 0.3 K/mm3 (1.2-5.4) L 02/29/20 15:30 [place] # 0.2 K/mm3 (0.0-0.8) 02/29/20 15:30 Eos # 0.0 K/mm3 (0.0-0.4) 02/29/20 15:30 Baso # 0.0 K/mm3 (0.0-0.1) 02/29/20 15:30 Seg Neutrophils % 88.1 % (40.0-70.0) H 02/29/20 15:30 Seg Neutrophils # 4.0 K/mm3 (1.8-7.7) 02/29/20 15:30 PT 14.2 Sec. (12.2-14.9) 02/26/20 03:57 INR 1.09 (0.87-1.13) 02/26/20 03:57 D-Dimer 1211.40 ng/mlDDU (0-234) H 02/28/20 Unknown ABG pH 7.442 pH Units (7.350-7.450) 02/29/20 18:30 ABG pCO2 34.9 mm Hg 02/29/20 18:30 ABG pO2 73.6 mm Hg (80.0-90.0) L 02/29/20 18:30 ABG HCO3 23.3 mmol/L (20.0-26.0) 02/29/20 18:30 ABG O2 Saturation 95.6 % (95.0-99.0) 02/29/20 18:30 ABG O2 Content 15.0 (0.0-44) 02/29/20 18:30 ABG Base Excess -0.4 mmol/L (-2.0-3.0) 02/29/20 18:30 ABG Hemoglobin 11.3 gm/dl (14.0-18.0) L 02/29/20 18:30 ABG Carboxyhemoglobin 1.3 % (0.0-5.0) 02/29/20 18:30 ABG Methemoglobin 0.5 % (0.0-1.5) 02/29/20 18:30 Oxyhemoglobin 93.9 % (95.0-99.0) L 02/29/20 18:30 FiO2 35 % 02/29/20 18:30 Sodium 138 mmol/L (137-145) 02/29/20 15:30 Potassium 4.4 mmol/L (3.6-5.0) 02/29/20 15:30 Chloride 101.3 mmol/L (98-107) 02/29/20 15:30 Carbon Dioxide 23 mmol/L (22-30) 02/29/20 15:30 Anion Gap 18 mmol/L 02/29/20 15:30 BUN 16 mg/dL (9-20) 02/29/20 15:30 Creatinine 0.8 mg/dL (0.8-1.5) 02/29/20 15:30 Estimated GFR > 60 ml/min 02/29/20 15:30 BUN/Creatinine Ratio 20 % 02/29/20 15:30 Glucose 142 mg/dL (75-100) H 02/29/20 15:30 POC Glucose 160 (70-105) H 02/29/20 17:50 Lactic Acid 1.60 mmol/L (0.7-2.0) 02/25/20 20:16 Calcium 7.8 mg/dL (8.4-10.2) L 02/29/20 15:30 Ferritin 210.1 ng/mL (13.0-400.0) 02/28/20 15:39 Total Bilirubin 0.50 mg/dL (0.1-1.2) 02/29/20 15:30 AST 58 units/L (5-40) H 02/29/20 15:30 ALT 49 units/L (7-56) 02/29/20 15:30 Alkaline Phosphatase 30 units/L (35-129) L 02/29/20 15:30 Ammonia 42.0 umol/L (25-60) 02/25/20 20:16 Lactate Dehydrogenase 399 units/L (91-180) H 02/28/20 09:30 Total Creatine Kinase 1034 units/L (55-170) H 02/25/20 20:16 Troponin T < 0.010 ng/mL (0.00-0.029) 02/25/20 20:16 C-Reactive Protein 13.30 mg/dL (0.00-1.30) H 02/28/20 09:30 Total Protein 6.1 g/dL (6.3-8.2) L 02/29/20 15:30 Albumin 3.0 g/dL (3.9-5) L 02/29/20 15:30 Albumin/Globulin Ratio 1.0 % 02/29/20 15:30 Procalcitonin 0.22 ng/mL (<0.15) 02/29/20 04:56 TSH 1.370 mlU/mL (0.270-4.200) 03/01/20 09:57 Free T4 0.85 ng/dL (0.76-1.46) 03/01/20 09:57 Urine Color Yellow (Yellow) 02/25/20 21:12 Urine Turbidity Clear (Clear) 02/25/20 21:12 Urine pH 6.0 (5.0-7.0) 02/25/20 21:12 Ur Specific [place] 1.023 (1.003-1.030) 02/25/20 21:12 Urine Protein 100 mg/dl mg/dL (Negative) 02/25/20 21:12 Urine Glucose (UA) 50 mg/dL (Negative) 02/25/20 21:12 Urine Ketones Neg mg/dL (Negative) 02/25/20 21:12 Urine Blood Lg (Negative) 02/25/20 21:12 Urine Nitrite Neg (Negative) 02/25/20 21:12 Urine Bilirubin Neg (Negative) 02/25/20 21:12 Urine Urobilinogen 4.0 mg/dL (<2.0) 02/25/20 21:12 Ur Leukocyte Esterase Tr (Negative) 02/25/20 21:12 Urine WBC (Auto) 24.0 /HPF (0.0-6.0) H 02/25/20 21:12 Urine RBC (Auto) 2.0 /HPF (0.0-6.0) 02/25/20 21:12 Urine Mucus Few /HPF 02/25/20 21:12 Urine Yeast (Budding) Few /HPF 02/25/20 21:12 Salicylates < 0.3 mg/dL (2.8-20.0) L 02/25/20 20:16 Urine Opiates Screen Presumptive negative 02/25/20 Unknown Urine Methadone Screen Presumptive negative 02/25/20 Unknown Acetaminophen < 5.0 ug/mL (10.0-30.0) L 02/25/20 20:16 Ur Barbiturates Screen Presumptive negative 02/25/20 Unknown Valproic Acid 26.9 ug/mL (50-100) L 03/01/20 12:46 Ur Phencyclidine Scrn Presumptive negative 02/25/20 Unknown Ur Amphetamines Screen Presumptive negative 02/25/20 Unknown U Benzodiazepines Scrn Presumptive negative 02/25/20 Unknown Urine Cocaine Screen Presumptive negative 02/25/20 Unknown U Marijuana (THC) Screen Presumptive negative 02/25/20 Unknown Drugs of Abuse Note Disclamer 02/25/20 Unknown Plasma/Serum Alcohol < 0.01 % (0-0.07) 02/25/20 20:16 Coronavirus (PCR) Positive (Negative) A 02/25/20 07:45 Microbiology: Microbiology 02/29/20 08:47 Peripheral/Venous Blood Culture - Preliminary NO GROWTH AFTER 24 HOURS 02/29/20 07:54 Peripheral/Venous Blood Culture - Preliminary NO GROWTH AFTER 24 HOURS [place]as[place]/IV: Voiding Method Condom Catheter IV Catheter Type [left ac] Peripheral IV IV Catheter Type [Left Hand] Peripheral IV Active Medications - Current Medications Current Medications: Generic Name Dose Route Start Last Admin Trade Name Freq PRN Reason Stop Dose Admin Acetaminophen 650 mg 02/25/20 23:51 02/29/20 05:41 Tylenol PO 650 mg Q4H PRN Administration Pain MILD(1-3)/Fever >100.5/RAMOS Albuterol 2.5 mg 02/26/20 02:29 Proventil IH Q4HRT PRN Shortness Of Breath Ascorbic Acid 500 mg 02/28/20 15:00 03/01/20 09:23 Vitamin C PO 500 mg BID SABA Administration Divalproex Sodium 500 mg 02/26/20 10:00 03/01/20 12:55 Depakote Er PO Not Given QDAY SABA Heparin Sodium (Porcine) 5,000 unit 02/26/20 14:00 03/01/20 13:00 Heparin SUB-Q 5,000 unit Q8HR SABA Administration Ampicillin Sodium/Sulbactam Sodium 3 gm in 100 mls @ 200 mls/hr 02/29/20 08:00 03/01/20 12:54 Unasyn/Ns 3 Gm/100 Ml IV 200 mls/hr Q6HR SABA Administration Protocol Magnesium Hydroxide 30 ml 02/25/20 23:51 Milk Of Magnesia PO Q4H PRN Constipation Methylprednisolone Sodium Succinate 60 mg 02/29/20 14:00 03/01/20 12:59 Solu-Medrol IV 03/03/20 13:59 60 mg Q8HR SABA Administration Metoprolol Tartrate 25 mg 02/29/20 14:00 03/01/20 13:00 Metoprolol PO 25 mg TID SABA Administration Ondansetron HCl 4 mg 02/25/20 23:51 Zofran IV Q8H PRN Nausea And Vomiting Paliperidone 12 mg 02/27/20 16:00 03/01/20 09:23 Invega PO 12 mg QDAY SABA Administration Pantoprazole Sodium 20 mg 02/26/20 10:00 03/01/20 09:23 Protonix PO 20 mg BID SABA Administration Sodium Chloride 10 ml 02/26/20 10:00 03/01/20 09:23 Sodium Chloride Flush Syringe 10 Ml IV 10 ml BID SABA Administration Sodium Chloride 10 ml 02/25/20 23:51 Sodium Chloride Flush Syringe 10 Ml IV PRN PRN LINE FLUSH Zinc Sulfate 220 mg 02/28/20 15:00 03/01/20 09:23 Zinc Sulfate PO 220 mg BID SABA Administration Nutrition/Malnutrition Assess - Dietary Evaluation Nutrition/Malnutrition Findings: Nutrition Notes Start: 02/26/20 12:55 Freq: Status: Active Protocol: Document 03/01/20 12:25 LM (Rec: 03/01/20 12:31 LM -[email or web address]) Nutrition Notes Initial or Follow up Reassessment Other Pertinent Diagnosis COVID-19, pneu, UTI, AMS, asthma, schizophrenia Current Diet Mechanical soft Labs/Tests Reviewed Pertinent Medications Reviewed Height 5 ft 8 in Weight 101.7 kg [place] Body Weight (kg) 70.00 BMI 34.0 Weight Status Obese Subjective/Other Information RN stated pt ate 75% of breakfast this AM. Percent of energy/protein needs met: 88%/73% Burn Absent Trauma Absent Current % PO Good (75-100%) Minimum of two criteria Yes Fluid Accumulation Mild (non-severe) Reduced Pododermatologist Strength Measurably Reduced (severe) #1 Nutrition Diagnosis Malnutrition Diagnosis Progress(for reassessment Continues documentation) Is patient on ventilator? No Is Patient Ambulatory and/or Out of Bed No REE-([facility]-confined to bed) 2125.008 Kcal/Kg value to use for calculation 18 Approximate Energy Requirements Using 1831 kcal/Kg Calculation Used for Recommendations Kcal/kg Additional Notes Protein: 103-129g (1.2-1.5g/kg using AdjBW 86kg) Fluid: 1ml/kcal Nutrition Intervention Change Diet Order: Continue mechanical soft Goal #1 Meet at least 75% of energy and protein needs Anticipated Discharge Needs: regular/mech soft Follow-Up By: 03/04/20 Additional Comments F/U for stable intakes
[2020-03-01] MEDS: VALPROIC ACID 250 MG/5 ML ORAL LIQD PO SCH ×2 (15:14→21:31)
[2020-03-02] MEDS: AMPICILLIN/SULBACTA 3GM/100ML 3 GM/100 ML BAG IV SCH ×4 (00:54→19:10)
[2020-03-02 01:41] LABS: Hematocrit 33.3 % (35.5-45.6); Hemoglobin 11.1 gm/dl (11.8-15.2); Mean Corpuscular HGB Conc 33 % (32-34); Mean Corpuscular Volume 82 fl (84-94); Platelet Count 333 K/mm3 (140-440); Red Blood Count 4.06 M/mm3 (3.65-5.03); Red Cell Distribution Width 16.8 % (13.2-15.2)
[2020-03-02 02:02] LABS: BUN/Creatinine Ratio 33; Blood Urea Nitrogen 30 mg/dL (9-20); Calcium 8.5 mg/dL (8.4-10.2); Hemolysis Index 2
[2020-03-02] MEDS: HEPARIN 5,000 UNIT/1 ML VIAL SUB-Q SCH ×3 (05:01→21:55)
[2020-03-02] MEDS: methylPREDNISolone Sod Succinate 40 MG/1 ML INJ IV SCH ×3 (05:01→21:52)
[2020-03-02 05:03] LABS: Eosinophils % (Manual) 0 % (0.0-4.3); Total Cells Counted 100
[2020-03-02 05:04] LABS: Basophils % (Manual) 0 % (0.0-1.8)
[2020-03-02 05:06] LABS: Platelet Estimate Consistent w Auto; Tear Drop Cells Rare
[2020-03-02] MEDS: METOPROLOL TARTRATE 25 MG TAB PO SCH ×3 (07:40→22:14)
[2020-03-02] MEDS: PANTOPRAZOLE 20 MG TAB PO SCH ×2 (10:37→22:16)
[2020-03-02] MEDS: PALIPERIDONE ER 3 MG TAB PO SCH (10:37)
[2020-03-02] MEDS: ASCORBIC ACID 500 MG TAB PO SCH ×2 (10:37→21:52)
[2020-03-02] MEDS: VALPROIC ACID 250 MG/5 ML ORAL LIQD PO SCH ×2 (10:38→21:52)
[2020-03-02] MEDS: ZINC SULFATE 220 MG CAP PO SCH ×2 (10:39→21:53)
--- NOTE | 2020-03-02 11:00 | XRay Report ---
CHEST 1 VIEW INDICATION: acute hypoxic respiratory failure. COMPARISON: 02/29/2020 and 02/25/2020 FINDINGS: Support devices: None. Heart: Within normal limits. Lungs/Pleura: Slightly worse right basal airspace opacities. Slightly decreased band of atelectasis i n the right upper lobe. The left lung is unchanged. No pleural effusion. Additional findings: None. IMPRESSION: 1. Slightly worse right basal pneumonia and stable left basal pneumonia. 2. Improved right upper lobe atelectasis. Signer Name: Manolo Escobar MD Signed: 03/02/2020 10:56 AM Workstation Name: [id number]
--- NOTE | 2020-03-02 11:18 | Progress Note ---
Assessment and Plan Pt remains in NSR. Cont present cardiac management, including Lopressor TID and Eliquis. Currently stable cardiac status. Will follow on as needed basis. Recommend follow up in our office with Dr. Castrejon within 2 weeks of discharge ([phone]). The patient has been seen in conjunction with Dr. Mirza Kingsley who agrees with the assessment and plan of care. - Patient Problems (1) COVID-19 Current Visit: Yes Status: Acute (2) Pneumonia Current Visit: Yes Status: Acute Qualifiers: Pneumonia type: due to unspecified organism Laterality: unspecified laterality Lung location: unspecified part of lung Qualified Code(s): J18.9 - Pneumonia, unspecified organism (3) Respiratory failure with hypoxia Current Visit: Yes Status: Acute Qualifiers: Chronicity: acute Qualified Code(s): J96.01 - Acute respiratory failure with hypoxia (4) Sepsis Current Visit: Yes Status: Suspected (5) UTI (urinary tract infection) Current Visit: Yes Status: Suspected Qualifiers: Urinary tract infection type: acute cystitis Hematuria presence: with hematuria Qualified Code(s): N30.01 - Acute cystitis with hematuria (6) Paroxysmal atrial fibrillation Current Visit: Yes Status: Chronic (7) Psychiatric disorder Current Visit: Yes Status: Chronic Subjective Date of service: 03/02/20 Principal diagnosis: COVID 19; parox AFib RVR Interval history: pt resting in bed, on HiFlo NC. In SR on tele. Objective Last Vital Signs Temp 98.0 F 03/02/20 05:14 Pulse 72 03/02/20 07:40 Resp 36 H 03/02/20 05:14 BP 137/65 03/02/20 07:40 Pulse Ox 96 03/02/20 05:14 - Physical Examination General: Other (on HiFlo NC) HEENT: Positive: PERRL, EOMI Neck: Positive: neck supple Cardiac: Positive: Reg Rate and Rhythm, S1/S2 Lungs: Positive: Decreased Breath Sounds Neuro: Positive: Grossly Intact Abdomen: Positive: Soft, Active Bowel Sounds Extremities: Absent: normal - Labs and Meds CBC 03/02/20 Range/Units 01:20 WBC 6.9 (4.5-11.0) K/mm3 RBC 4.06 (3.65-5.03) M/mm3 Hgb 11.1 L (11.8-15.2) gm/dl Hct 33.3 L (35.5-45.6) % Plt Count 333 (140-440) K/mm3 Comprehensive Metabolic Panel 03/02/20 Range/Units 01:20 Sodium 141 (137-145) mmol/L Potassium 3.9 (3.6-5.0) mmol/L Chloride 101.4 (98-107) mmol/L Carbon Dioxide 24 (22-30) mmol/L BUN 30 H (9-20) mg/dL Creatinine 0.9 (0.8-1.5) mg/dL Glucose 274 H (75-100) mg/dL Calcium 8.5 (8.4-10.2) mg/dL - Imaging and Cardiology Echo: pending
[2020-03-02] MEDS: DIVALPROEX ER 500 MG TAB PO SCH (11:34)
--- NOTE | 2020-03-02 11:35 | Progress Note ---
Assessment and Plan Assessment and plan: Sepsis. Etiology secondary to pneumonia and UTI. Follow-up blood and urine cultures. COVID-19 infection. PCR positive on 02/25/2020. Right upper lobe pneumonia. Continue to follow serial chest x-ray and antibiotics. ID consulted. Acute hypoxemic respiratory failure. Etiology secondary to above. Continue O2 to maintain sats greater than 92%. BiPAP as clinically indicated. UTI. Continue IV antibiotics and follow-up urine cultures. Toxic metabolic encephalopathy. Etiology secondary to above. Continue to treat underlying cause. Mastoiditis/left otitis media 02/27/2020. Continue COVID isolation precautions. Ceftriaxone and azithromycin IV per ID recommendations. MRI brain. Monitor inflammatory markers. D-dimer 1216, LDH 308, CRP 5.5 and ferritin 117. Patient currently with high flow nasal [id number] L/min FiO2 35%. Pulmonary consulted. 02/28/2020. Patient currently with HFNC--35 L/min with FiO2 35%. Follow-up repeat inflammatory markers today. Continue antibiotics of ceftriaxone and azithromycin. Follow-up MRI brain. 02/29/2020. Consider IV Solu-Medrol per pulmonary. Patient currently with HFNC--35 L/min with FiO2 35% satting 95%. Follow-up inflammatory markers. Check Echocardiogram. ID changed antibiotics from ceftriaxone/azithromycin to Unasyn to cover for the faecalis UTI. MRI brain when stable. 03/01/20 Patient with Covid-19 infection, acute respiratory failure and toxic metabolic encephalopathy. Fever yesterday. Still on high flow Oxygen. 03/02/20 Patient with Covid-19 infection, acute respiratory failure. patient still on Oxygen HFNC at 35 l/min with oxygen sat 92% History Interval history: shortness of breath No fever X 2 days Hospitalist Physical - Physical exam Narrative exam: GEN: Not in acute distress, obese, lying in bed HEENT: Normocephalic, atraumatic, Neck: supple, No JVD Lungs: Clear to auscultation bilaterally, heart;S1 and S2 reg, no murmurs, rubs or gallop Abd:soft, non tender, non distended, normal bowel sounds, Ext: awake,alert,oriented X 3, no clubbing, Neuro: Awake,alert,oriented X3,No focal neurological signs - Constitutional Vitals: Temp Pulse Resp BP Pulse Ox 98.0 F 72 36 H 137/65 96 03/02/20 05:14 03/02/20 07:40 03/02/20 05:14 03/02/20 07:40 03/02/20 05:14 General appearance: Present: disheveled HEART Score - HEART Score Troponin: Troponin T < 0.010 ng/mL (0.00-0.029) 02/25/20 20:16 Results - Labs CBC & Chem 7: 03/02/20 01:20 03/02/20 01:20 Labs: Laboratory Last Values WBC 6.9 K/mm3 (4.5-11.0) 03/02/20 01:20 RBC 4.06 M/mm3 (3.65-5.03) 03/02/20 01:20 Hgb 11.1 gm/dl (11.8-15.2) L 03/02/20 01:20 Hct 33.3 % (35.5-45.6) L 03/02/20 01:20 MCV 82 fl (84-94) L 03/02/20 01:20 MCH 27 pg (28-32) L 03/02/20 01:20 MCHC 33 % (32-34) 03/02/20 01:20 RDW 16.8 % (13.2-15.2) H 03/02/20 01:20 Plt Count 333 K/mm3 (140-440) 03/02/20 01:20 Lymph % (Auto) 6.4 % (13.4-35.0) L 02/29/20 15:30 [place] % (Auto) 4.7 % (0.0-7.3) 02/29/20 15:30 Eos % (Auto) 0.7 % (0.0-4.3) 02/29/20 15:30 Baso % (Auto) 0.1 % (0.0-1.8) 02/29/20 15:30 Lymph # 0.3 K/mm3 (1.2-5.4) L 02/29/20 15:30 [place] # 0.2 K/mm3 (0.0-0.8) 02/29/20 15:30 Eos # 0.0 K/mm3 (0.0-0.4) 02/29/20 15:30 Baso # 0.0 K/mm3 (0.0-0.1) 02/29/20 15:30 Add Manual Diff Complete 03/02/20 01:20 Total Counted 100 03/02/20 01:20 Seg Neutrophils % Firestopper Installer 03/02/20 01:20 Seg Neuts % (Manual) 96.0 % (40.0-70.0) H 03/02/20 01:20 Band Neutrophils % 0 % 03/02/20 01:20 Lymphocytes % (Manual) 3.0 % (13.4-35.0) L 03/02/20 01:20 Reactive Lymphs % (Man) 0 % 03/02/20 01:20 Monocytes % (Manual) 1.0 % (0.0-7.3) 03/02/20 01:20 Eosinophils % (Manual) 0 % (0.0-4.3) 03/02/20 01:20 Basophils % (Manual) 0 % (0.0-1.8) 03/02/20 01:20 Metamyelocytes % 0 % 03/02/20 01:20 Myelocytes % 0 % 03/02/20 01:20 Promyelocytes % 0 % 03/02/20 01:20 Blast Cells % 0 % 03/02/20 01:20 Nucleated RBC % Not Reportable 03/02/20 01:20 Seg Neutrophils # 4.0 K/mm3 (1.8-7.7) 02/29/20 15:30 Seg Neutrophils # Man 6.6 K/mm3 (1.8-7.7) 03/02/20 01:20 Band Neutrophils # 0.0 K/mm3 03/02/20 01:20 Lymphocytes # (Manual) 0.2 K/mm3 (1.2-5.4) L 03/02/20 01:20 Abs React Lymphs (Man) 0.0 K/mm3 03/02/20 01:20 Monocytes # (Manual) 0.1 K/mm3 (0.0-0.8) 03/02/20 01:20 Eosinophils # (Manual) 0.0 K/mm3 (0.0-0.4) 03/02/20 01:20 Basophils # (Manual) 0.0 K/mm3 (0.0-0.1) 03/02/20 01:20 Metamyelocytes # 0.0 K/mm3 03/02/20 01:20 Myelocytes # 0.0 K/mm3 03/02/20 01:20 Promyelocytes # 0.0 K/mm3 03/02/20 01:20 Blast Cells # 0.0 K/mm3 03/02/20 01:20 WBC Morphology Not Reportable 03/02/20 01:20 Hypersegmented Neuts Not Reportable 03/02/20 01:20 Hyposegmented Neuts Not Reportable 03/02/20 01:20 Hypogranular Neuts Not Reportable 03/02/20 01:20 Smudge Cells Not Reportable 03/02/20 01:20 Toxic Granulation Not Reportable 03/02/20 01:20 Toxic Vacuolation Not Reportable 03/02/20 01:20 Dohle Bodies Not Reportable 03/02/20 01:20 Pelger-Huet Anomaly Not Reportable 03/02/20 01:20 Norma Rods Not Reportable 03/02/20 01:20 Platelet Estimate Consistent w auto 03/02/20 01:20 Clumped Platelets Not Reportable 03/02/20 01:20 Plt Clumps, EDTA Not Reportable 03/02/20 01:20 Large Platelets Not Reportable 03/02/20 01:20 Giant Platelets Not Reportable 03/02/20 01:20 Platelet Satelliting Not Reportable 03/02/20 01:20 Plt Morphology Comment Not Reportable 03/02/20 01:20 RBC Morphology Not Reportable 03/02/20 01:20 Dimorphic RBCs Not Reportable 03/02/20 01:20 Polychromasia Not Reportable 03/02/20 01:20 Hypochromasia Not Reportable 03/02/20 01:20 Poikilocytosis Not Reportable 03/02/20 01:20 Anisocytosis Not Reportable 03/02/20 01:20 Microcytosis Not Reportable 03/02/20 01:20 Macrocytosis Not Reportable 03/02/20 01:20 Spherocytes Not Reportable 03/02/20 01:20 Pappenheimer Bodies Not Reportable 03/02/20 01:20 Sickle Cells Not Reportable 03/02/20 01:20 Target Cells Not Reportable 03/02/20 01:20 Tear Drop Cells Rare 03/02/20 01:20 Ovalocytes Not Reportable 03/02/20 01:20 Helmet Cells Not Reportable 03/02/20 01:20 [place] Bodies Not Reportable 03/02/20 01:20 [place] Rings Not Reportable 03/02/20 01:20 Michelle Cells Not Reportable 03/02/20 01:20 Bite Cells Not Reportable 03/02/20 01:20 Crenated Cell Not Reportable 03/02/20 01:20 Elliptocytes Rare 03/02/20 01:20 Acanthocytes (Spur) Not Reportable 03/02/20 01:20 Rouleaux Not Reportable 03/02/20 01:20 Hemoglobin C Crystals Not Reportable 03/02/20 01:20 Schistocytes Not Reportable 03/02/20 01:20 Malaria parasites Not Reportable 03/02/20 01:20 Roddy Bodies Not Reportable 03/02/20 01:20 Hem Pathologist Commnt No 03/02/20 01:20 PT 14.2 Sec. (12.2-14.9) 02/26/20 03:57 INR 1.09 (0.87-1.13) 02/26/20 03:57 D-Dimer 1211.40 ng/mlDDU (0-234) H 02/28/20 Unknown ABG pH 7.442 pH Units (7.350-7.450) 02/29/20 18:30 ABG pCO2 34.9 mm Hg 02/29/20 18:30 ABG pO2 73.6 mm Hg (80.0-90.0) L 02/29/20 18:30 ABG HCO3 23.3 mmol/L (20.0-26.0) 02/29/20 18:30 ABG O2 Saturation 95.6 % (95.0-99.0) 02/29/20 18:30 ABG O2 Content 15.0 (0.0-44) 02/29/20 18:30 ABG Base Excess -0.4 mmol/L (-2.0-3.0) 02/29/20 18:30 ABG Hemoglobin 11.3 gm/dl (14.0-18.0) L 02/29/20 18:30 ABG Carboxyhemoglobin 1.3 % (0.0-5.0) 02/29/20 18:30 ABG Methemoglobin 0.5 % (0.0-1.5) 02/29/20 18:30 Oxyhemoglobin 93.9 % (95.0-99.0) L 02/29/20 18:30 FiO2 35 % 02/29/20 18:30 Sodium 141 mmol/L (137-145) 03/02/20 01:20 Potassium 3.9 mmol/L (3.6-5.0) 03/02/20 01:20 Chloride 101.4 mmol/L (98-107) 03/02/20 01:20 Carbon Dioxide 24 mmol/L (22-30) 03/02/20 01:20 Anion Gap 20 mmol/L 03/02/20 01:20 BUN 30 mg/dL (9-20) H 03/02/20 01:20 Creatinine 0.9 mg/dL (0.8-1.5) 03/02/20 01:20 Estimated GFR > 60 ml/min 03/02/20 01:20 BUN/Creatinine Ratio 33 % 03/02/20 01:20 Glucose 274 mg/dL (75-100) H 03/02/20 01:20 POC Glucose 160 (70-105) H 02/29/20 17:50 Lactic Acid 1.60 mmol/L (0.7-2.0) 02/25/20 20:16 Calcium 8.5 mg/dL (8.4-10.2) 03/02/20 01:20 Ferritin 210.1 ng/mL (13.0-400.0) 02/28/20 15:39 Total Bilirubin 0.50 mg/dL (0.1-1.2) 02/29/20 15:30 AST 58 units/L (5-40) H 02/29/20 15:30 ALT 49 units/L (7-56) 02/29/20 15:30 Alkaline Phosphatase 30 units/L (35-129) L 02/29/20 15:30 Ammonia 42.0 umol/L (25-60) 02/25/20 20:16 Lactate Dehydrogenase 399 units/L (91-180) H 02/28/20 09:30 Total Creatine Kinase 1034 units/L (55-170) H 02/25/20 20:16 Troponin T < 0.010 ng/mL (0.00-0.029) 02/25/20 20:16 C-Reactive Protein 13.30 mg/dL (0.00-1.30) H 02/28/20 09:30 Total Protein 6.1 g/dL (6.3-8.2) L 02/29/20 15:30 Albumin 3.0 g/dL (3.9-5) L 02/29/20 15:30 Albumin/Globulin Ratio 1.0 % 02/29/20 15:30 Procalcitonin 0.22 ng/mL (<0.15) 02/29/20 04:56 TSH 1.370 mlU/mL (0.270-4.200) 03/01/20 09:57 Free T4 0.85 ng/dL (0.76-1.46) 03/01/20 09:57 Urine Color Yellow (Yellow) 02/25/20 21:12 Urine Turbidity Clear (Clear) 02/25/20 21:12 Urine pH 6.0 (5.0-7.0) 02/25/20 21:12 Ur Specific [place] 1.023 (1.003-1.030) 02/25/20 21:12 Urine Protein 100 mg/dl mg/dL (Negative) 02/25/20 21:12 Urine Glucose (UA) 50 mg/dL (Negative) 02/25/20 21:12 Urine Ketones Neg mg/dL (Negative) 02/25/20 21:12 Urine Blood Lg (Negative) 02/25/20 21:12 Urine Nitrite Neg (Negative) 02/25/20 21:12 Urine Bilirubin Neg (Negative) 02/25/20 21:12 Urine Urobilinogen 4.0 mg/dL (<2.0) 02/25/20 21:12 Ur Leukocyte Esterase Tr (Negative) 02/25/20 21:12 Urine WBC (Auto) 24.0 /HPF (0.0-6.0) H 02/25/20 21:12 Urine RBC (Auto) 2.0 /HPF (0.0-6.0) 02/25/20 21:12 Urine Mucus Few /HPF 02/25/20 21:12 Urine Yeast (Budding) Few /HPF 02/25/20 21:12 Salicylates < 0.3 mg/dL (2.8-20.0) L 02/25/20 20:16 Urine Opiates Screen Presumptive negative 02/25/20 Unknown Urine Methadone Screen Presumptive negative 02/25/20 Unknown Acetaminophen < 5.0 ug/mL (10.0-30.0) L 02/25/20 20:16 Ur Barbiturates Screen Presumptive negative 02/25/20 Unknown Valproic Acid 26.9 ug/mL (50-100) L 03/01/20 12:46 Ur Phencyclidine Scrn Presumptive negative 02/25/20 Unknown Ur Amphetamines Screen Presumptive negative 02/25/20 Unknown U Benzodiazepines Scrn Presumptive negative 02/25/20 Unknown Urine Cocaine Screen Presumptive negative 02/25/20 Unknown U Marijuana (THC) Screen Presumptive negative 02/25/20 Unknown Drugs of Abuse Note Disclamer 02/25/20 Unknown Plasma/Serum Alcohol < 0.01 % (0-0.07) 02/25/20 20:16 Coronavirus (PCR) Positive (Negative) A 02/25/20 07:45 Microbiology: Microbiology 02/29/20 08:47 Peripheral/Venous Blood Culture - Preliminary NO GROWTH AFTER 48 HOURS 02/29/20 07:54 Peripheral/Venous Blood Culture - Preliminary NO GROWTH AFTER 48 HOURS Velasquez/IV: Voiding Method Condom Catheter IV Catheter Type [left ac] Peripheral IV IV Catheter Type [Left Hand] Peripheral IV Active Medications - Current Medications Current Medications: Generic Name Dose Route Start Last Admin Trade Name Freq PRN Reason Stop Dose Admin Acetaminophen 650 mg 02/25/20 23:51 02/29/20 05:41 Tylenol PO 650 mg Q4H PRN Administration Pain MILD(1-3)/Fever >100.5/RAMOS Albuterol 2.5 mg 02/26/20 02:29 Proventil IH Q4HRT PRN Shortness Of Breath Ascorbic Acid 500 mg 02/28/20 15:00 03/02/20 10:37 Vitamin C PO 500 mg BID SABA Administration Heparin Sodium (Porcine) 5,000 unit 02/26/20 14:00 03/02/20 05:01 Heparin SUB-Q 5,000 unit Q8HR SABA Administration Ampicillin Sodium/Sulbactam Sodium 3 gm in 100 mls @ 200 mls/hr 02/29/20 08:00 03/02/20 11:32 Unasyn/Ns 3 Gm/100 Ml IV 03/03/20 00:29 200 mls/hr Q6HR SABA Administration Protocol Magnesium Hydroxide 30 ml 02/25/20 23:51 Milk Of Magnesia PO Q4H PRN Constipation Methylprednisolone Sodium Succinate 60 mg 02/29/20 14:00 03/02/20 05:01 Solu-Medrol IV 03/03/20 13:59 60 mg Q8HR SABA Administration Metoprolol Tartrate 25 mg 02/29/20 14:00 03/02/20 07:40 Metoprolol PO 25 mg TID SABA Administration Ondansetron HCl 4 mg 02/25/20 23:51 Zofran IV Q8H PRN Nausea And Vomiting Paliperidone 12 mg 02/27/20 16:00 03/02/20 10:37 Invega PO 12 mg QDAY SABA Administration Pantoprazole Sodium 20 mg 02/26/20 10:00 03/02/20 10:37 Protonix PO 20 mg BID SABA Administration Sodium Chloride 10 ml 02/26/20 10:00 03/02/20 10:39 Sodium Chloride Flush Syringe 10 Ml IV 10 ml BID SABA Administration Sodium Chloride 10 ml 02/25/20 23:51 Sodium Chloride Flush Syringe 10 Ml IV PRN PRN LINE FLUSH Valproic Acid 250 mg 03/01/20 15:00 03/02/20 10:38 Depakene Liq PO 250 mg BID SABA Administration Zinc Sulfate 220 mg 02/28/20 15:00 03/02/20 10:39 Zinc Sulfate PO 220 mg BID SABA Administration Nutrition/Malnutrition Assess - Dietary Evaluation Nutrition/Malnutrition Findings: Nutrition Notes Start: 02/26/20 12:55 Freq: Status: Active Protocol: Document 03/01/20 12:25 LM (Rec: 03/01/20 12:31 LM [id number]) Nutrition Notes Initial or Follow up Reassessment Other Pertinent Diagnosis COVID-19, pneu, UTI, AMS, asthma, schizophrenia Current Diet Mechanical soft Labs/Tests Reviewed Pertinent Medications Reviewed Height 5 ft 8 in Weight 101.7 kg [place] Body Weight (kg) 70.00 BMI 34.0 Weight Status Obese Subjective/Other Information RN stated pt ate 75% of breakfast this AM. Percent of energy/protein needs met: 88%/73% Burn Absent Trauma Absent Current % PO Good (75-100%) Minimum of two criteria Yes Fluid Accumulation Mild (non-severe) Reduced Tallow Maker Strength Measurably Reduced (severe) #1 Nutrition Diagnosis Malnutrition Diagnosis Progress(for reassessment Continues documentation) Is patient on ventilator? No Is Patient Ambulatory and/or Out of Bed No REE-([facility]-confined to bed) 2125.008 Kcal/Kg value to use for calculation 18 Approximate Energy Requirements Using 1831 kcal/Kg Calculation Used for Recommendations Kcal/kg Additional Notes Protein: 103-129g (1.2-1.5g/kg using AdjBW 86kg) Fluid: 1ml/kcal Nutrition Intervention Change Diet Order: Continue mechanical soft Goal #1 Meet at least 75% of energy and protein needs [facility]ticipated [facility] Follow-Up By: 03/04/20 Additional Comments F/U for stable intakes
--- NOTE | 2020-03-02 14:01 | Progress Note ---
Assessment and Plan Cultures: Urine culture 02/25/2020 E faecalis Blood culture 02/29/2020 no growth today Assessment: 69 years old male with history of asthma, bipolar disorder and schizophrenia, resident of a detention, admitted on 02/25/2020 due to 48 hours history of altered mental status with confusion:: #SIRS: with persistent high fever 103 NO fever for 48h ?COVID ?UTI #COVID pneumonia: COVID test positive. There may be a component of bacterial pneumonia, pro-Justin 0.3. Chest x-ray with right patchy infiltrates. Inflammatory markers mildly elevated: Ferritin 117 (NORMAL multiple times), d- dimer 1216, CRP 5.5-->13. No evidence of severe COVID. #Acute hypoxemic resp failure: on HFO2, CXR worsening pneumonia on CXR ?etiology ?COPD exacerbation ?CHF exacerbation. Aspiration pneumonia, doubt cytokine storm with normal ferritin. Currently on HFO2 35%/35L #Acute encephalopathy: Likely due to COVID. CT shows possible left mastoiditis and left otitis media. #Left mastoiditis and left otitis media: Per CT #Mild UTI: Urine culture grew 10,000-100,000 colonies of usual skin tanya Recommendations: Obtain brain MRI and monitor mentation F/u blood culture Continue unasyn to cover E faecalis UTI Day 3 of 3 Continue solumedrol - 60 mg IV q 8 hour - Day 2 Obtain TTE - pending Continue COVID isolation precautions per [facility] protocol Discussed with Dr Casanova Will follow Linda Gottlieb MD Infectious Diseases Programming Coordinator [facility] ([facility]) M [phone] O [phone] Subjective Date of service: 03/02/20 Principal diagnosis: COVID 19; parox AFib RVR Interval history: Remains confused does not follow commands no fever Objective - Exam Narrative Exam: General appearance: Alert confused on HFO2 Eyes: Pupils equal reactive bilaterally HENT: Atraumatic; oropharynx limited Lungs: Clear to auscultation CV: RRR Abdomen: Soft nontender Extremities: No edema Skin: No rash. Scrotum with large edema Psych: alert confused Neuro: Slightly sleepy confused - Constitutional Vitals: Vital Signs Temp Pulse Resp BP Pulse Ox 98.3 F 82 22 124/72 94 03/02/20 12:04 03/02/20 12:04 03/02/20 12:04 03/02/20 12:04 03/02/20 12:04 Temperature -Last 24 Hours Temperature 98.3 F Temperature 98.0 F Temperature 99.0 F Temperature 98.5 F Temperature 98.4 F - Labs CBC & Chem 7: 03/02/20 01:20 03/02/20 01:20 Labs: Abnormal lab results 03/02/20 03/02/20 Range/Units 01:20 01:20 Hgb 11.1 L (11.8-15.2) gm/dl Hct 33.3 L (35.5-45.6) % MCV 82 L (84-94) fl MCH 27 L (28-32) pg RDW 16.8 H (13.2-15.2) % Seg Neuts % (Manual) 96.0 H (40.0-70.0) % Lymphocytes % (Manual) 3.0 L (13.4-35.0) % Lymphocytes # (Manual) 0.2 L (1.2-5.4) K/mm3 BUN 30 H (9-20) mg/dL Glucose 274 H (75-100) mg/dL
--- NOTE | 2020-03-02 14:06 | Progress Note ---
Assessment and Plan Acute hypoxemic resp failure: on HFO2, CXR reviewed- worsening infiltrates on CXR COVID pneumonia: COVID test positive Multifocal SIRS Acute encephalopathy Left mastoiditis and left otitis media Mild UTI: Urine culture grew 10,000-100,000 colonies of usual skin tanya- E faecalis h/o Asthma -continue airborne, droplet and contact isolation for COVID-19 -trend inflammatory markers per facility protocol -Vit C, Vitamin D -Continue steroids -Accuchecks with glycemic control per SSI (While critically ill target blood glucose of 140-180 mg/dL; avoid hypoglycemia) -Intermittent diuresis while monitoring renal function, hemodynamics and electrolyte profile- redose lasix in the morning -Follow up CXR continues to show worsening of infiltrates, plan on getting speech evaluation for dysphagia to r/o silent aspiration Reordered CXR for the morning -Continue to wean supplemental oxygen for target O2 sats > 92% -Awake proning as tolerated -Continue bronchodilators with pulmonary hygiene per RT - Avoid benzodiazepines, reduce the possibility of delirium - prn analgesia per CPOT score - Maintenance of sleep-wake cycle, avoid delirium - Antibiotics per ID- on Unasyn for E.faecalis UTI - VTE prophylaxis-Heparin -Stress ulcer prophylaxis while he is on steroids and high flow oxygen -Mobility protocol, off loading and skin assessment for pressure ulcer prevention -Continue other care per attending / other consultants Discussed with ID Plan for MRI of his brain Can get MRI brain if he is able to maintain oxygen saturations on 100% NRBM .... Re-evaluate in am & prn Subjective Date of service: 03/02/20 Principal diagnosis: COVID 19; parox AFib RVR Interval history: Patient is seen today for: acute hypoxic respiratory failure; COVID infection; multifocal pneumonia; acute toxic-metabolic encephalopathy Seen and examined at bedside; 24hour events reviewed; nursing and respiratory care staff consulted; no adverse overnight events reported to me; Remains on high flow oxygen 35L and 35 % with oxygen saturations of 97% Documented fever yesterday, fevers today, no diarrhea, no vomiting. On steroids, responded well to diuretics Objective - Exam Narrative Exam: Constitutional: lethargic, other (Obese man, atraumatic, normocephalic) Eyes: non-icteric, other (GHAZALA) Neck: supple, no JVD, other (large neck circumference, grunting respirations) Effort: mildly labored Ascultation: Bilateral: diminished breath sounds, rhonchi Cardiovascular: regular rate and rhythm, other (S1,S2) Gastrointestinal: normoactive bowel sounds, non-tender, non-distended Integumentary: rash Extremities: no cyanosis, no edema Neurologic: non-focal exam (grossly, will move extremities), pupils equal and round, other (not obeying commands for me) Psychiatric: other (unable to assess secondary to mental status) Vital Signs - 12hr 03/02/20 03/02/20 03/02/20 03:15 05:14 07:30 Temperature 98.0 F Pulse Rate 81 Respiratory 36 H Rate Blood Pressure 129/84 137/65 O2 Sat by Pulse 92 96 Oximetry 03/02/20 03/02/20 03/02/20 07:40 08:00 12:04 Temperature 98.3 F Pulse Rate 72 82 Respiratory 22 Rate Blood Pressure 137/65 124/72 O2 Sat by Pulse 92 94 Oximetry CBC and BMP: 03/02/20 01:20 03/02/20 01:20 ABG, PT/INR, D-dimer: ABG ABG pH 7.442 pH Units (7.350-7.450) 02/29/20 18:30 ABG pCO2 34.9 mm Hg 02/29/20 18:30 ABG pO2 73.6 mm Hg (80.0-90.0) L 02/29/20 18:30 ABG O2 Saturation 95.6 % (95.0-99.0) 02/29/20 18:30 PT/INR, D-dimer PT 14.2 Sec. (12.2-14.9) 02/26/20 03:57 INR 1.09 (0.87-1.13) 02/26/20 03:57 D-Dimer 1211.40 ng/mlDDU (0-234) H 02/28/20 Unknown Abnormal lab findings: Abnormal Labs 02/25/20 02/25/20 02/25/20 07:45 20:16 20:16 Hgb 11.7 L Hct 35.3 L MCV 83 L MCH 27 L RDW 17.2 H Lymph % (Auto) 8.0 L [place] % (Auto) 8.5 H Lymph # 0.5 L Seg Neutrophils % 83.4 H Seg Neuts % (Manual) Lymphocytes % (Manual) Lymphocytes # (Manual) D-Dimer ABG pO2 ABG Hemoglobin Oxyhemoglobin Sodium 135 L Carbon Dioxide 21 L BUN 22 H Glucose 176 H POC Glucose Calcium 8.0 L AST Alkaline Phosphatase 33 L Lactate Dehydrogenase Total Creatine Kinase 1034 H C-Reactive Protein Total Protein 5.9 L Albumin 3.5 L Urine WBC (Auto) Salicylates Acetaminophen Valproic Acid Coronavirus (PCR) Positive A 02/25/20 02/25/20 02/25/20 20:16 20:16 21:12 Hgb Hct MCV MCH RDW Lymph % (Auto) [place] % (Auto) Lymph # Seg Neutrophils % Seg Neuts % (Manual) Lymphocytes % (Manual) Lymphocytes # (Manual) D-Dimer ABG pO2 ABG Hemoglobin Oxyhemoglobin Sodium Carbon Dioxide BUN Glucose POC Glucose Calcium AST Alkaline Phosphatase Lactate Dehydrogenase Total Creatine Kinase C-Reactive Protein Total Protein Albumin Urine WBC (Auto) 24.0 H Salicylates < 0.3 L Acetaminophen < 5.0 L Valproic Acid Coronavirus (PCR) 02/25/20 02/25/20 02/26/20 23:03 23:03 03:57 Hgb 10.9 L Hct 32.8 L MCV 83 L MCH RDW 17.6 H Lymph % (Auto) 10.3 L [place] % (Auto) Lymph # 0.6 L Seg Neutrophils % 83.7 H Seg Neuts % (Manual) Lymphocytes % (Manual) Lymphocytes # (Manual) D-Dimer 1216.06 H ABG pO2 ABG Hemoglobin Oxyhemoglobin Sodium Carbon Dioxide BUN Glucose 144 H POC Glucose Calcium AST Alkaline Phosphatase Lactate Dehydrogenase 308 H Total Creatine Kinase C-Reactive Protein 5.50 H Total Protein Albumin Urine WBC (Auto) Salicylates Acetaminophen Valproic Acid Coronavirus (PCR) 02/26/20 02/27/20 02/28/20 03:57 12:01 09:30 Hgb Hct MCV MCH RDW Lymph % (Auto) [place] % (Auto) Lymph # Seg Neutrophils % Seg Neuts % (Manual) Lymphocytes % (Manual) Lymphocytes # (Manual) D-Dimer ABG pO2 ABG Hemoglobin Oxyhemoglobin Sodium Carbon Dioxide 20 L BUN Glucose 194 H 162 H POC Glucose 128 H Calcium 8.0 L AST Alkaline Phosphatase Lactate Dehydrogenase 399 H Total Creatine Kinase C-Reactive Protein 13.30 H Total Protein Albumin Urine WBC (Auto) Salicylates Acetaminophen Valproic Acid Coronavirus (PCR) 02/28/20 02/28/20 02/29/20 11:36 Unknown 15:30 Hgb 11.2 L Hct 34.0 L MCV 83 L MCH 27 L RDW 17.8 H Lymph % (Auto) 6.4 L [place] % (Auto) Lymph # 0.3 L Seg Neutrophils % 88.1 H Seg Neuts % (Manual) Lymphocytes % (Manual) Lymphocytes # (Manual) D-Dimer 1211.40 H ABG pO2 ABG Hemoglobin Oxyhemoglobin Sodium Carbon Dioxide BUN Glucose POC Glucose 156 H Calcium AST Alkaline Phosphatase Lactate Dehydrogenase Total Creatine Kinase C-Reactive Protein Total Protein Albumin Urine WBC (Auto) Salicylates Acetaminophen Valproic Acid Coronavirus (PCR) 02/29/20 02/29/20 02/29/20 15:30 17:50 18:30 Hgb Hct MCV MCH RDW Lymph % (Auto) [place] % (Auto) Lymph # Seg Neutrophils % Seg Neuts % (Manual) Lymphocytes % (Manual) Lymphocytes # (Manual) D-Dimer ABG pO2 73.6 L ABG Hemoglobin 11.3 L Oxyhemoglobin 93.9 L Sodium Carbon Dioxide BUN Glucose 142 H POC Glucose 160 H Calcium 7.8 L AST 58 H Alkaline Phosphatase 30 L Lactate Dehydrogenase Total Creatine Kinase C-Reactive Protein Total Protein 6.1 L Albumin 3.0 L Urine WBC (Auto) Salicylates Acetaminophen Valproic Acid Coronavirus (PCR) 03/01/20 03/02/20 03/02/20 12:46 01:20 01:20 Hgb 11.1 L Hct 33.3 L MCV 82 L MCH 27 L RDW 16.8 H Lymph % (Auto) Antelope % (Auto) Lymph # Seg Neutrophils % Seg Neuts % (Manual) 96.0 H Lymphocytes % (Manual) 3.0 L Lymphocytes # (Manual) 0.2 L D-Dimer ABG pO2 ABG Hemoglobin Oxyhemoglobin Sodium Carbon Dioxide BUN 30 H Glucose 274 H POC Glucose Calcium AST Alkaline Phosphatase Lactate Dehydrogenase Total Creatine Kinase C-Reactive Protein Total Protein Albumin Urine WBC (Auto) Salicylates Acetaminophen Valproic Acid 26.9 L Coronavirus (PCR)
[2020-03-02 15:56] LABS: ABG Base Excess -0.7 mmol/L (-2.0-3.0); ABG HCO3 23.1 mmol/L (20.0-26.0); ABG Methemoglobin 0.4 % (0.0-1.5); ABG Oxygen Saturation 96.8 % (95.0-99.0); ABG PCO2 34.8 mm Hg; ABG PH 7.439 pH Units (7.350-7.450); ABG PO2 85.4 mm Hg (80.0-90.0)
[2020-03-03] MEDS: AMPICILLIN/SULBACTA 3GM/100ML 3 GM/100 ML BAG IV SCH (00:13)
[2020-03-03] MEDS: methylPREDNISolone Sod Succinate 40 MG/1 ML INJ IV SCH (05:10)
[2020-03-03] MEDS: HEPARIN 5,000 UNIT/1 ML VIAL SUB-Q SCH ×3 (05:10→21:57)
[2020-03-03] MEDS ORDERED: FUROSEMIDE 40 MG/4 ML INJ IV ONE (09:00)
[2020-03-03] MEDS: PALIPERIDONE ER 3 MG TAB PO SCH (09:31)
[2020-03-03] MEDS: PANTOPRAZOLE 20 MG TAB PO SCH ×2 (09:32→21:57)
[2020-03-03] MEDS: VALPROIC ACID 250 MG/5 ML ORAL LIQD PO SCH ×2 (09:32→21:57)
[2020-03-03] MEDS: ASCORBIC ACID 500 MG TAB PO SCH ×2 (09:32→21:57)
[2020-03-03] MEDS: ZINC SULFATE 220 MG CAP PO SCH ×2 (09:32→21:57)
[2020-03-03] MEDS: METOPROLOL TARTRATE 25 MG TAB PO SCH ×3 (09:35→22:06)
--- NOTE | 2020-03-03 11:42 | Progress Note ---
Assessment and Plan Cultures: Urine culture 02/25/2020 E faecalis Blood culture 02/29/2020 no growth today Assessment: 69 years old male with history of asthma, bipolar disorder and schizophrenia, resident of a longterm, admitted on 02/25/2020 due to 48 hours history of altered mental status with confusion:: #SIRS: with persistent high fever 103 NO fever since admission ?COVID ?UTI #COVID pneumonia: COVID test positive. There may be a component of bacterial pneumonia, pro-Justin 0.3. Chest x-ray with right patchy infiltrates. Inflammatory markers mildly elevated: Ferritin 117 (NORMAL multiple times), d- dimer 1216, CRP 5.5-->13. No evidence of severe COVID. #Acute hypoxemic resp failure: on HFO2, CXR worsening pneumonia on CXR ?etiology ?COPD exacerbation ?CHF exacerbation. Aspiration pneumonia, doubt cytokine storm with normal ferritin. Currently on HFO2 35%/35L #Acute encephalopathy: Likely due to COVID. CT shows possible left mastoiditis and left otitis media. #Left mastoiditis and left otitis media: Per CT #Mild UTI: Urine culture grew 10,000-100,000 colonies of usual skin tanya. S/p unasyn to cover E faecalis UTI 3 days Recommendations: Monitor oxygenation - not better, consider r/o PE Obtain brain MRI and monitor mentation - pending Obtain TTE - pending Continue solumedrol - 60 mg IV q 8 hour - Day 3 Continue COVID isolation precautions per [facility] protocol Will follow Linda Gottlieb MD Infectious Diseases Head [facility] Surgeon [facility] [phone] Subjective Date of service: 03/03/20 Principal diagnosis: COVID 19; parox AFib RVR Interval history: Remains confused unintelligible speech no fever Objective - Exam Narrative Exam: General appearance: Alert confused on HFO2 Eyes: Pupils equal reactive bilaterally HENT: Atraumatic; oropharynx limited Lungs: Clear to auscultation CV: RRR Abdomen: Soft nontender Extremities: No edema Skin: No rash. Scrotum with large edema Psych: alert confused Neuro: Slightly sleepy confused - Constitutional Vitals: Vital Signs Temp Pulse Resp BP Pulse Ox 98.0 F 80 22 128/78 93 03/03/20 04:58 03/03/20 09:35 03/03/20 05:00 03/03/20 09:35 03/03/20 08:12 Temperature -Last 24 Hours Temperature 98.0 F Temperature 97.9 F Temperature 99.2 F Temperature 98.3 F - Labs CBC & Chem 7: 03/02/20 01:20 03/02/20 01:20 Labs: Abnormal lab results 03/02/20 Range/Units 15:41 ABG Hemoglobin 10.9 L (14.0-18.0) gm/dl
--- NOTE | 2020-03-03 15:00 | Progress Note ---
Assessment and Plan Acute hypoxemic respiratory failure. Right lung pneumonia. COVID-19 infection. History of schizophrenia. Systemic inflammatory response syndrome. Anemia that is microcytic. Mild hyponatremia. Mild metabolic acidosis. Elevated serum creatinine kinase. Urinary tract infection. - continue airborne, droplet and contact isolation for COVID-19 - trend inflammatory markers per facility protocol - Vit C, Vitamin D - Continue steroids - Accuchecks with glycemic control per SSI (While critically ill target blood glucose of 140-180 mg/dL; avoid hypoglycemia) - Intermittent diuresis while monitoring renal function, hemodynamics and electrolyte profile- redose lasix in the morning - Follow up CXR continues to show worsening of infiltrates, plan on getting speech evaluation for dysphagia to r/o silent aspiration Reordered CXR for the morning - Continue to wean supplemental oxygen for target O2 sats > 92% - Awake proning as tolerated - Continue bronchodilators with pulmonary hygiene per RT - Avoid benzodiazepines, reduce the possibility of delirium - prn analgesia per CPOT score - Maintenance of sleep-wake cycle, avoid delirium - Antibiotics per ID- on Unasyn for E.faecalis UTI - VTE prophylaxis-Heparin - Stress ulcer prophylaxis while he is on steroids and high flow oxygen - Mobility protocol, off loading and skin assessment for pressure ulcer prevention -Continue other care per attending / other consultants .... Re-evaluate in am & prn Subjective Date of service: 03/03/20 Principal diagnosis: COVID 19; parox AFib RVR Interval history: Patient is seen today for: Acute hypoxemic respiratory failure; Right lung pneumonia; COVID-19 infection; History of schizophrenia; UTI Seen and examined at bedside; 24hour events reviewed; nursing and respiratory care staff consulted; no adverse overnight events reported to me; resting peacefully in bed; FiO2 down to 35%; no new issues otherwise Objective Vital Signs - 12hr 03/03/20 03/03/20 03/03/20 04:38 04:58 05:00 Temperature 98.0 F Pulse Rate 61 58 L Pulse Rate [ Apical] Respiratory 22 Rate Blood Pressure 125/85 O2 Sat by Pulse 96 93 Oximetry 03/03/20 03/03/20 03/03/20 08:00 08:12 09:35 Temperature Pulse Rate 80 Pulse Rate [ 61 Apical] Respiratory Rate Blood Pressure 128/78 O2 Sat by Pulse 94 93 Oximetry 03/03/20 03/03/20 13:27 14:29 Temperature 97.8 F Pulse Rate 69 69 Pulse Rate [ Apical] Respiratory 24 Rate Blood Pressure 143/77 143/77 O2 Sat by Pulse 95 Oximetry Constitutional: lethargic, other (Obese man, atraumatic, normocephalic) Eyes: non-icteric, other (PERRL) ENT: oropharynx moist Neck: supple, no JVD, other (large neck circumfernece, grunting respirations intermittentl;y) Effort: mildly labored Ascultation: Bilateral: diminished breath sounds, rhonchi Cardiovascular: regular rate and rhythm, other (S1,S2) Gastrointestinal: normoactive bowel sounds, soft, non-tender, non-distended Integumentary: rash Extremities: no cyanosis, no edema, pink and warm, pulses normal Neurologic: non-focal exam (grossly, will move extemities), pupils equal and round, other (not obeying commands for me; ? schizoid) Psychiatric: other (unable to assess secondary to mental status) CBC and BMP: 03/04/20 00:05 03/04/20 00:05 ABG, PT/INR, D-dimer: ABG ABG pH 7.439 pH Units (7.350-7.450) 03/02/20 15:41 ABG pCO2 34.8 mm Hg 03/02/20 15:41 ABG pO2 85.4 mm Hg (80.0-90.0) 03/02/20 15:41 ABG O2 Saturation 96.8 % (95.0-99.0) 03/02/20 15:41 PT/INR, D-dimer PT 14.2 Sec. (12.2-14.9) 02/26/20 03:57 INR 1.09 (0.87-1.13) 02/26/20 03:57 D-Dimer 1211.40 ng/mlDDU (0-234) H 02/28/20 Unknown Abnormal lab findings: Abnormal Labs 02/25/20 02/25/20 02/25/20 07:45 20:16 20:16 Hgb 11.7 L Hct 35.3 L MCV 83 L MCH 27 L RDW 17.2 H Lymph % (Auto) 8.0 L [place] % (Auto) 8.5 H Lymph # 0.5 L Seg Neutrophils % 83.4 H Seg Neuts % (Manual) Lymphocytes % (Manual) Lymphocytes # (Manual) D-Dimer ABG pO2 ABG Hemoglobin Oxyhemoglobin Sodium 135 L Carbon Dioxide 21 L BUN 22 H Glucose 176 H POC Glucose Calcium 8.0 L AST Alkaline Phosphatase 33 L Lactate Dehydrogenase Total Creatine Kinase 1034 H C-Reactive Protein Total Protein 5.9 L Albumin 3.5 L Urine WBC (Auto) Salicylates Acetaminophen Valproic Acid Coronavirus (PCR) Positive A 02/25/20 02/25/20 02/25/20 20:16 20:16 21:12 Hgb Hct MCV MCH RDW Lymph % (Auto) [place] % (Auto) Lymph # Seg Neutrophils % Seg Neuts % (Manual) Lymphocytes % (Manual) Lymphocytes # (Manual) D-Dimer ABG pO2 ABG Hemoglobin Oxyhemoglobin Sodium Carbon Dioxide BUN Glucose POC Glucose Calcium AST Alkaline Phosphatase Lactate Dehydrogenase Total Creatine Kinase C-Reactive Protein Total Protein Albumin Urine WBC (Auto) 24.0 H Salicylates < 0.3 L Acetaminophen < 5.0 L Valproic Acid Coronavirus (PCR) 02/25/20 02/25/20 02/26/20 23:03 23:03 03:57 Hgb 10.9 L Hct 32.8 L MCV 83 L MCH RDW 17.6 H Lymph % (Auto) 10.3 L [place] % (Auto) Lymph # 0.6 L Seg Neutrophils % 83.7 H Seg Neuts % (Manual) Lymphocytes % (Manual) Lymphocytes # (Manual) D-Dimer 1216.06 H ABG pO2 ABG Hemoglobin Oxyhemoglobin Sodium Carbon Dioxide BUN Glucose 144 H POC Glucose Calcium AST Alkaline Phosphatase Lactate Dehydrogenase 308 H Total Creatine Kinase C-Reactive Protein 5.50 H Total Protein Albumin Urine WBC (Auto) Salicylates Acetaminophen Valproic Acid Coronavirus (PCR) 02/26/20 02/27/20 02/28/20 03:57 12:01 09:30 Hgb Hct MCV MCH RDW Lymph % (Auto) [place] % (Auto) Lymph # Seg Neutrophils % Seg Neuts % (Manual) Lymphocytes % (Manual) Lymphocytes # (Manual) D-Dimer ABG pO2 ABG Hemoglobin Oxyhemoglobin Sodium Carbon Dioxide 20 L BUN Glucose 194 H 162 H POC Glucose 128 H Calcium 8.0 L AST Alkaline Phosphatase Lactate Dehydrogenase 399 H Total Creatine Kinase C-Reactive Protein 13.30 H Total Protein Albumin Urine WBC (Auto) Salicylates Acetaminophen Valproic Acid Coronavirus (PCR) 02/28/20 02/28/20 02/29/20 11:36 Unknown 15:30 Hgb 11.2 L Hct 34.0 L MCV 83 L MCH 27 L RDW 17.8 H Lymph % (Auto) 6.4 L [place] % (Auto) Lymph # 0.3 L Seg Neutrophils % 88.1 H Seg Neuts % (Manual) Lymphocytes % (Manual) Lymphocytes # (Manual) D-Dimer 1211.40 H ABG pO2 ABG Hemoglobin Oxyhemoglobin Sodium Carbon Dioxide BUN Glucose POC Glucose 156 H Calcium AST Alkaline Phosphatase Lactate Dehydrogenase Total Creatine Kinase C-Reactive Protein Total Protein Albumin Urine WBC (Auto) Salicylates Acetaminophen Valproic Acid Coronavirus (PCR) 02/29/20 02/29/20 02/29/20 15:30 17:50 18:30 Hgb Hct MCV MCH RDW Lymph % (Auto) [place] % (Auto) Lymph # Seg Neutrophils % Seg Neuts % (Manual) Lymphocytes % (Manual) Lymphocytes # (Manual) D-Dimer ABG pO2 73.6 L ABG Hemoglobin 11.3 L Oxyhemoglobin 93.9 L Sodium Carbon Dioxide BUN Glucose 142 H POC Glucose 160 H Calcium 7.8 L AST 58 H Alkaline Phosphatase 30 L Lactate Dehydrogenase Total Creatine Kinase C-Reactive Protein Total Protein 6.1 L Albumin 3.0 L Urine WBC (Auto) Salicylates Acetaminophen Valproic Acid Coronavirus (PCR) 03/01/20 03/02/20 03/02/20 12:46 01:20 01:20 Hgb 11.1 L Hct 33.3 L MCV 82 L MCH 27 L RDW 16.8 H Lymph % (Auto) [place] % (Auto) Lymph # Seg Neutrophils % Seg Neuts % (Manual) 96.0 H Lymphocytes % (Manual) 3.0 L Lymphocytes # (Manual) 0.2 L D-Dimer ABG pO2 ABG Hemoglobin Oxyhemoglobin Sodium Carbon Dioxide BUN 30 H Glucose 274 H POC Glucose Calcium AST Alkaline Phosphatase Lactate Dehydrogenase Total Creatine Kinase C-Reactive Protein Total Protein Albumin Urine WBC (Auto) Salicylates Acetaminophen Valproic Acid 26.9 L Coronavirus (PCR) 03/02/20 15:41 Hgb Hct MCV MCH RDW Lymph % (Auto) [place] % (Auto) Lymph # Seg Neutrophils % Seg Neuts % (Manual) Lymphocytes % (Manual) Lymphocytes # (Manual) D-Dimer ABG pO2 ABG Hemoglobin 10.9 L Oxyhemoglobin Sodium Carbon Dioxide BUN Glucose POC Glucose Calcium AST Alkaline Phosphatase Lactate Dehydrogenase Total Creatine Kinase C-Reactive Protein Total Protein Albumin Urine WBC (Auto) Salicylates Acetaminophen Valproic Acid Coronavirus (PCR) Allied health notes reviewed: nursing
[2020-03-03] MEDS ORDERED: HALOPERIDOL LACTATE 5 MG/1 ML INJ IM PRN (21:18)
[2020-03-03] MEDS ORDERED: POLYETHYLENE GLYCOL 3350 17 GM POWDER PO PRN (21:18)
--- NOTE | 2020-03-03 21:24 | Progress Note ---
Assessment and Plan Assessment and plan: Sepsis. Etiology secondary to pneumonia and UTI. Follow-up blood and urine cultures. COVID-19 infection. PCR positive on 02/25/2020. Right upper lobe pneumonia. Continue to follow serial chest x-ray and antibiotics. ID consulted. Acute hypoxemic respiratory failure. Etiology secondary to above. Continue O2 to maintain sats greater than 92%. BiPAP as clinically indicated. UTI. Continue IV antibiotics and follow-up urine cultures. Toxic metabolic encephalopathy. Etiology secondary to above. Continue to treat underlying cause. Mastoiditis/left otitis media 02/27/2020. Continue COVID isolation precautions. Ceftriaxone and azithromycin IV per ID recommendations. MRI brain. Monitor inflammatory markers. D-dimer 1216, LDH 308, CRP 5.5 and ferritin 117. Patient currently with high flow nasal [id number] L/min FiO2 35%. Pulmonary consulted. 02/28/2020. Patient currently with HFNC--35 L/min with FiO2 35%. Follow-up repeat inflammatory markers today. Continue antibiotics of ceftriaxone and azithromycin. Follow-up MRI brain. 02/29/2020. Consider IV Solu-Medrol per pulmonary. Patient currently with HFNC--35 L/min with FiO2 35% satting 95%. Follow-up inflammatory markers. Check Echocardiogram. ID changed antibiotics from ceftriaxone/azithromycin to Unasyn to cover for the faecalis UTI. MRI brain when stable. 03/01/20 Patient with Covid-19 infection, acute respiratory failure and toxic metabolic encephalopathy. Fever yesterday. Still on high flow Oxygen. 03/02/20 Patient with Covid-19 infection, acute respiratory failure. patient still on Oxygen HFNC at 35 l/min with oxygen sat 92% 03/02/20 Patient with Covid-19 infection, acute respiratory failure. he still needs to be inpatient, He is still on Oxygen HFNC at 35 l/min. History Interval history: shortness of breath No fever X 2 days Hospitalist Physical - Physical exam Narrative exam: GEN: Not in acute distress, obese, lying in bed HEENT: Normocephalic, atraumatic, Neck: supple, No JVD Lungs: Clear to auscultation bilaterally, heart;S1 and S2 reg, no murmurs, rubs or gallop Abd:soft, non tender, non distended, normal bowel sounds, Ext: awake,alert,oriented X 3, no clubbing, Neuro: Awake,alert,oriented X3,No focal neurological signs - Constitutional Vitals: Temp Pulse Resp BP Pulse Ox 98.0 F 69 18 151/69 95 03/03/20 17:19 03/03/20 17:19 03/03/20 17:19 03/03/20 17:19 03/03/20 21:15 General appearance: Present: disheveled HEART Score - HEART Score Troponin: Troponin T < 0.010 ng/mL (0.00-0.029) 02/25/20 20:16 Results - Labs CBC & Chem 7: 03/02/20 01:20 03/02/20 01:20 Labs: Laboratory Last Values WBC 6.9 K/mm3 (4.5-11.0) 03/02/20 01:20 RBC 4.06 M/mm3 (3.65-5.03) 03/02/20 01:20 Hgb 11.1 gm/dl (11.8-15.2) L 03/02/20 01:20 Hct 33.3 % (35.5-45.6) L 03/02/20 01:20 MCV 82 fl (84-94) L 03/02/20 01:20 MCH 27 pg (28-32) L 03/02/20 01:20 MCHC 33 % (32-34) 03/02/20 01:20 RDW 16.8 % (13.2-15.2) H 03/02/20 01:20 Plt Count 333 K/mm3 (140-440) 03/02/20 01:20 Lymph % (Auto) 6.4 % (13.4-35.0) L 02/29/20 15:30 [place] % (Auto) 4.7 % (0.0-7.3) 02/29/20 15:30 Eos % (Auto) 0.7 % (0.0-4.3) 02/29/20 15:30 Baso % (Auto) 0.1 % (0.0-1.8) 02/29/20 15:30 Lymph # 0.3 K/mm3 (1.2-5.4) L 02/29/20 15:30 [place] # 0.2 K/mm3 (0.0-0.8) 02/29/20 15:30 Eos # 0.0 K/mm3 (0.0-0.4) 02/29/20 15:30 Baso # 0.0 K/mm3 (0.0-0.1) 02/29/20 15:30 Add Manual Diff Complete 03/02/20 01:20 Total Counted 100 03/02/20 01:20 Seg Neutrophils % [employer] Apprentice 03/02/20 01:20 Seg Neuts % (Manual) 96.0 % (40.0-70.0) H 03/02/20 01:20 Band Neutrophils % 0 % 03/02/20 01:20 Lymphocytes % (Manual) 3.0 % (13.4-35.0) L 03/02/20 01:20 Reactive Lymphs % (Man) 0 % 03/02/20 01:20 Monocytes % (Manual) 1.0 % (0.0-7.3) 03/02/20 01:20 Eosinophils % (Manual) 0 % (0.0-4.3) 03/02/20 01:20 Basophils % (Manual) 0 % (0.0-1.8) 03/02/20 01:20 Metamyelocytes % 0 % 03/02/20 01:20 Myelocytes % 0 % 03/02/20 01:20 Promyelocytes % 0 % 03/02/20 01:20 Blast Cells % 0 % 03/02/20 01:20 Nucleated RBC % Not Reportable 03/02/20 01:20 Seg Neutrophils # 4.0 K/mm3 (1.8-7.7) 02/29/20 15:30 Seg Neutrophils # Man 6.6 K/mm3 (1.8-7.7) 03/02/20 01:20 Band Neutrophils # 0.0 K/mm3 03/02/20 01:20 Lymphocytes # (Manual) 0.2 K/mm3 (1.2-5.4) L 03/02/20 01:20 Abs React Lymphs (Man) 0.0 K/mm3 03/02/20 01:20 Monocytes # (Manual) 0.1 K/mm3 (0.0-0.8) 03/02/20 01:20 Eosinophils # (Manual) 0.0 K/mm3 (0.0-0.4) 03/02/20 01:20 Basophils # (Manual) 0.0 K/mm3 (0.0-0.1) 03/02/20 01:20 Metamyelocytes # 0.0 K/mm3 03/02/20 01:20 Myelocytes # 0.0 K/mm3 03/02/20 01:20 Promyelocytes # 0.0 K/mm3 03/02/20 01:20 Blast Cells # 0.0 K/mm3 03/02/20 01:20 WBC Morphology Not Reportable 03/02/20 01:20 Hypersegmented Neuts Not Reportable 03/02/20 01:20 Hyposegmented Neuts Not Reportable 03/02/20 01:20 Hypogranular Neuts Not Reportable 03/02/20 01:20 Smudge Cells Not Reportable 03/02/20 01:20 Toxic Granulation Not Reportable 03/02/20 01:20 Toxic Vacuolation Not Reportable 03/02/20 01:20 Dohle Bodies Not Reportable 03/02/20 01:20 Pelger-Huet Anomaly Not Reportable 03/02/20 01:20 Norma Rods Not Reportable 03/02/20 01:20 Platelet Estimate Consistent w auto 03/02/20 01:20 Clumped Platelets Not Reportable 03/02/20 01:20 Plt Clumps, EDTA Not Reportable 03/02/20 01:20 Large Platelets Not Reportable 03/02/20 01:20 Giant Platelets Not Reportable 03/02/20 01:20 Platelet Satelliting Not Reportable 03/02/20 01:20 Plt Morphology Comment Not Reportable 03/02/20 01:20 RBC Morphology Not Reportable 03/02/20 01:20 Dimorphic RBCs Not Reportable 03/02/20 01:20 Polychromasia Not Reportable 03/02/20 01:20 Hypochromasia Not Reportable 03/02/20 01:20 Poikilocytosis Not Reportable 03/02/20 01:20 Anisocytosis Not Reportable 03/02/20 01:20 Microcytosis Not Reportable 03/02/20 01:20 Macrocytosis Not Reportable 03/02/20 01:20 Spherocytes Not Reportable 03/02/20 01:20 Pappenheimer Bodies Not Reportable 03/02/20 01:20 Sickle Cells Not Reportable 03/02/20 01:20 Target Cells Not Reportable 03/02/20 01:20 Tear Drop Cells Rare 03/02/20 01:20 Ovalocytes Not Reportable 03/02/20 01:20 Helmet Cells Not Reportable 03/02/20 01:20 [place] Bodies Not Reportable 03/02/20 01:20 [place] Rings Not Reportable 03/02/20 01:20 Michelle Cells Not Reportable 03/02/20 01:20 Bite Cells Not Reportable 03/02/20 01:20 Crenated Cell Not Reportable 03/02/20 01:20 Elliptocytes Rare 03/02/20 01:20 Acanthocytes (Spur) Not Reportable 03/02/20 01:20 Rouleaux Not Reportable 03/02/20 01:20 Hemoglobin C Crystals Not Reportable 03/02/20 01:20 Schistocytes Not Reportable 03/02/20 01:20 Malaria parasites Not Reportable 03/02/20 01:20 Roddy Bodies Not Reportable 03/02/20 01:20 Hem Pathologist Commnt No 03/02/20 01:20 PT 14.2 Sec. (12.2-14.9) 02/26/20 03:57 INR 1.09 (0.87-1.13) 02/26/20 03:57 D-Dimer 1211.40 ng/mlDDU (0-234) H 02/28/20 Unknown ABG pH 7.439 pH Units (7.350-7.450) 03/02/20 15:41 ABG pCO2 34.8 mm Hg 03/02/20 15:41 ABG pO2 85.4 mm Hg (80.0-90.0) 03/02/20 15:41 ABG HCO3 23.1 mmol/L (20.0-26.0) 03/02/20 15:41 ABG O2 Saturation 96.8 % (95.0-99.0) 03/02/20 15:41 ABG O2 Content 14.7 (0.0-44) 03/02/20 15:41 ABG Base Excess -0.7 mmol/L (-2.0-3.0) 03/02/20 15:41 ABG Hemoglobin 10.9 gm/dl (14.0-18.0) L 03/02/20 15:41 ABG Carboxyhemoglobin 1.1 % (0.0-5.0) 03/02/20 15:41 ABG Methemoglobin 0.4 % (0.0-1.5) 03/02/20 15:41 Oxyhemoglobin 95.4 % (95.0-99.0) 03/02/20 15:41 FiO2 40 % 03/02/20 15:41 Sodium 141 mmol/L (137-145) 03/02/20 01:20 Potassium 3.9 mmol/L (3.6-5.0) 03/02/20 01:20 Chloride 101.4 mmol/L (98-107) 03/02/20 01:20 Carbon Dioxide 24 mmol/L (22-30) 03/02/20 01:20 Anion Gap 20 mmol/L 03/02/20 01:20 BUN 30 mg/dL (9-20) H 03/02/20 01:20 Creatinine 0.9 mg/dL (0.8-1.5) 03/02/20 01:20 Estimated GFR > 60 ml/min 03/02/20 01:20 BUN/Creatinine Ratio 33 % 03/02/20 01:20 Glucose 274 mg/dL (75-100) H 03/02/20 01:20 POC Glucose 160 (70-105) H 02/29/20 17:50 Lactic Acid 1.60 mmol/L (0.7-2.0) 02/25/20 20:16 Calcium 8.5 mg/dL (8.4-10.2) 03/02/20 01:20 Ferritin 210.1 ng/mL (13.0-400.0) 02/28/20 15:39 Total Bilirubin 0.50 mg/dL (0.1-1.2) 02/29/20 15:30 AST 58 units/L (5-40) H 02/29/20 15:30 ALT 49 units/L (7-56) 02/29/20 15:30 Alkaline Phosphatase 30 units/L (35-129) L 02/29/20 15:30 Ammonia 42.0 umol/L (25-60) 02/25/20 20:16 Lactate Dehydrogenase 399 units/L (91-180) H 02/28/20 09:30 Total Creatine Kinase 1034 units/L (55-170) H 02/25/20 20:16 Troponin T < 0.010 ng/mL (0.00-0.029) 02/25/20 20:16 C-Reactive Protein 13.30 mg/dL (0.00-1.30) H 02/28/20 09:30 Total Protein 6.1 g/dL (6.3-8.2) L 02/29/20 15:30 Albumin 3.0 g/dL (3.9-5) L 02/29/20 15:30 Albumin/Globulin Ratio 1.0 % 02/29/20 15:30 Procalcitonin 0.22 ng/mL (<0.15) 02/29/20 04:56 TSH 1.370 mlU/mL (0.270-4.200) 03/01/20 09:57 Free T4 0.85 ng/dL (0.76-1.46) 03/01/20 09:57 Urine Color Yellow (Yellow) 02/25/20 21:12 Urine Turbidity Clear (Clear) 02/25/20 21:12 Urine pH 6.0 (5.0-7.0) 02/25/20 21:12 Ur Specific [place] 1.023 (1.003-1.030) 02/25/20 21:12 Urine Protein 100 mg/dl mg/dL (Negative) 02/25/20 21:12 Urine Glucose (UA) 50 mg/dL (Negative) 02/25/20 21:12 Urine Ketones Neg mg/dL (Negative) 02/25/20 21:12 Urine Blood Lg (Negative) 02/25/20 21:12 Urine Nitrite Neg (Negative) 02/25/20 21:12 Urine Bilirubin Neg (Negative) 02/25/20 21:12 Urine Urobilinogen 4.0 mg/dL (<2.0) 02/25/20 21:12 Ur Leukocyte Esterase Tr (Negative) 02/25/20 21:12 Urine WBC (Auto) 24.0 /HPF (0.0-6.0) H 02/25/20 21:12 Urine RBC (Auto) 2.0 /HPF (0.0-6.0) 02/25/20 21:12 Urine Mucus Few /HPF 02/25/20 21:12 Urine Yeast (Budding) Few /HPF 02/25/20 21:12 Salicylates < 0.3 mg/dL (2.8-20.0) L 02/25/20 20:16 Urine Opiates Screen Presumptive negative 02/25/20 Unknown Urine Methadone Screen Presumptive negative 02/25/20 Unknown Acetaminophen < 5.0 ug/mL (10.0-30.0) L 02/25/20 20:16 Ur Barbiturates Screen Presumptive negative 02/25/20 Unknown Valproic Acid 26.9 ug/mL (50-100) L 03/01/20 12:46 Ur Phencyclidine Scrn Presumptive negative 02/25/20 Unknown Ur Amphetamines Screen Presumptive negative 02/25/20 Unknown U Benzodiazepines Scrn Presumptive negative 02/25/20 Unknown Urine Cocaine Screen Presumptive negative 02/25/20 Unknown U Marijuana (THC) Screen Presumptive negative 02/25/20 Unknown Drugs of Abuse Note Disclamer 02/25/20 Unknown Plasma/Serum Alcohol < 0.01 % (0-0.07) 02/25/20 20:16 Coronavirus (PCR) Positive (Negative) A 02/25/20 07:45 Microbiology: Microbiology 02/29/20 08:47 Peripheral/Venous Blood Culture - Preliminary NO GROWTH AFTER 72 HOURS 02/29/20 07:54 Peripheral/Venous Blood Culture - Preliminary NO GROWTH AFTER 72 HOURS Velasquez/IV: Voiding Method Condom Catheter IV Catheter Type [left ac] Peripheral IV IV Catheter Type [Left Hand] Peripheral IV Active Medications - Current Medications Current Medications: Generic Name Dose Route Start Last Admin Trade Name Freq PRN Reason Stop Dose Admin Acetaminophen 650 mg 02/25/20 23:51 02/29/20 05:41 Tylenol PO 650 mg Q4H PRN Administration Pain MILD(1-3)/Fever >100.5/RAMOS Albuterol 2.5 mg 02/26/20 02:29 Proventil IH Q4HRT PRN Shortness Of Breath Ascorbic Acid 500 mg 02/28/20 15:00 03/03/20 09:32 Vitamin C PO 500 mg BID SABA Administration Haloperidol Lactate 5 mg 03/03/20 21:18 Haldol IM Q6H PRN Agitation Heparin Sodium (Porcine) 5,000 unit 02/26/20 14:00 03/03/20 14:28 Heparin SUB-Q 5,000 unit Q8HR SABA Administration Magnesium Hydroxide 30 ml 02/25/20 23:51 03/03/20 18:13 Milk Of Magnesia PO 30 ml Q4H PRN Administration Constipation Metoprolol Tartrate 25 mg 02/29/20 14:00 03/03/20 14:29 Metoprolol PO 25 mg TID SABA Administration Ondansetron HCl 4 mg 02/25/20 23:51 Zofran IV Q8H PRN Nausea And Vomiting Paliperidone 12 mg 02/27/20 16:00 03/03/20 09:31 Invega PO 12 mg QDAY SABA Administration Pantoprazole Sodium 20 mg 02/26/20 10:00 03/03/20 09:32 Protonix PO 20 mg BID SABA Administration Polyethylene Glycol 17 gm 03/03/20 21:18 Miralax 3350 PO QDAY PRN Constipation Sodium Chloride 10 ml 02/26/20 10:00 03/03/20 09:35 Sodium Chloride Flush Syringe 10 Ml IV 10 ml BID SABA Administration Sodium Chloride 10 ml 02/25/20 23:51 Sodium Chloride Flush Syringe 10 Ml IV PRN PRN LINE FLUSH Valproic Acid 250 mg 03/01/20 15:00 03/03/20 09:32 Depakene Liq PO 250 mg BID SABA Administration Zinc Sulfate 220 mg 02/28/20 15:00 03/03/20 09:32 Zinc Sulfate PO 220 mg BID SABA Administration Nutrition/Malnutrition Assess - Dietary Evaluation Nutrition/Malnutrition Findings: Nutrition Notes Start: 02/26/20 12:55 Freq: Status: Active Protocol: Document 03/01/20 12:25 LM (Rec: 03/01/20 12:31 LM [id number]) Nutrition Notes Initial or Follow up Reassessment Other Pertinent Diagnosis COVID-19, pneu, UTI, AMS, asthma, schizophrenia Current Diet Mechanical soft Labs/Tests Reviewed Pertinent Medications Reviewed Height 5 ft 8 in Weight 101.7 kg [place] Body Weight (kg) 70.00 BMI 34.0 Weight Status Obese Subjective/Other Information RN stated pt ate 75% of breakfast this AM. Percent of energy/protein needs met: 88%/73% Burn Absent Trauma Absent Current % PO Good (75-100%) Minimum of two criteria Yes Fluid Accumulation Mild (non-severe) Reduced Sanitarian Aide Strength Measurably Reduced (severe) #1 Nutrition Diagnosis Malnutrition Diagnosis Progress(for reassessment Continues documentation) Is patient on ventilator? No Is Patient Ambulatory and/or Out of Bed No REE-([facility]-confined to bed) 2125.008 Kcal/Kg value to use for calculation 18 Approximate Energy Requirements Using 1831 kcal/Kg Calculation Used for Recommendations Kcal/kg Additional Notes Protein: 103-129g (1.2-1.5g/kg using AdjBW 86kg) Fluid: 1ml/kcal Nutrition Intervention Change Diet Order: Continue mechanical soft Goal #1 Meet at least 75% of energy and protein needs Anticipated Discharge Needs: regular/mech soft Follow-Up By: 03/04/20 Additional Comments F/U for stable intakes
[2020-03-04 00:37] LABS: Basophils % (Auto) 0.1 % (0.0-1.8); Hemoglobin 10.8 gm/dl (11.8-15.2); Lymphocytes # (Auto) 0.3 K/mm3 (1.2-5.4); Lymphocytes % (Auto) 4.3 % (13.4-35.0); Mean Corpuscular HGB Conc 33 % (32-34); Mean Corpuscular Volume 83 fl (84-94); Monocytes # (Auto) 0.4 K/mm3 (0.0-0.8); Monocytes % (Auto) 5.6 % (0.0-7.3); Platelet Count 312 K/mm3 (140-440); Red Blood Count 3.96 M/mm3 (3.65-5.03); Red Cell Distribution Width 16.4 % (13.2-15.2)
[2020-03-04 00:56] LABS: BUN/Creatinine Ratio 33; Blood Urea Nitrogen 33 mg/dL (9-20); Calcium 8.4 mg/dL (8.4-10.2); Hemolysis Index 0
[2020-03-04] MEDS: HEPARIN 5,000 UNIT/1 ML VIAL SUB-Q SCH ×3 (05:22→22:43)
[2020-03-04] MEDS: PALIPERIDONE ER 3 MG TAB PO SCH ×3 (08:56→09:39)
[2020-03-04] MEDS: VALPROIC ACID 250 MG/5 ML ORAL LIQD PO SCH ×3 (08:56→22:44)
[2020-03-04] MEDS: METOPROLOL TARTRATE 25 MG TAB PO SCH ×3 (08:56→22:49)
[2020-03-04] MEDS: PANTOPRAZOLE 20 MG TAB PO SCH ×3 (08:57→22:47)
[2020-03-04] MEDS: ZINC SULFATE 220 MG CAP PO SCH ×3 (08:58→22:42)
[2020-03-04] MEDS: ASCORBIC ACID 500 MG TAB PO SCH ×3 (08:58→22:42)
--- NOTE | 2020-03-04 09:26 | Progress Note ---
Assessment and Plan Assessment and plan: Sepsis. Etiology secondary to pneumonia and UTI. Follow-up blood and urine cultures. COVID-19 infection. PCR positive on 02/25/2020. Right upper lobe pneumonia. Continue to follow serial chest x-ray and antibiotics. ID consulted. Acute hypoxemic respiratory failure. Etiology secondary to above. Continue O2 to maintain sats greater than 92%. BiPAP as clinically indicated. UTI. Continue IV antibiotics and follow-up urine cultures. Toxic metabolic encephalopathy. Etiology secondary to above. Continue to treat underlying cause. Mastoiditis/left otitis media 02/27/2020. Continue COVID isolation precautions. Ceftriaxone and azithromycin IV per ID recommendations. MRI brain. Monitor inflammatory markers. D-dimer 1216, LDH 308, CRP 5.5 and ferritin 117. Patient currently with high flow nasal [id number] L/min FiO2 35%. Pulmonary consulted. 02/28/2020. Patient currently with HFNC--35 L/min with FiO2 35%. Follow-up repeat inflammatory markers today. Continue antibiotics of ceftriaxone and azithromycin. Follow-up MRI brain. 02/29/2020. Consider IV Solu-Medrol per pulmonary. Patient currently with HFNC--35 L/min with FiO2 35% satting 95%. Follow-up inflammatory markers. Check Echocardiogram. ID changed antibiotics from ceftriaxone/azithromycin to Unasyn to cover for the faecalis UTI. MRI brain when stable. 03/01/20 Patient with Covid-19 infection, acute respiratory failure and toxic metabolic encephalopathy. Fever yesterday. Still on high flow Oxygen. 03/02/20 Patient with Covid-19 infection, acute respiratory failure. patient still on Oxygen HFNC at 35 l/min with oxygen sat 92% 03/03/20 Patient with Covid-19 infection, acute respiratory failure. he still needs to be inpatient, He is still on Oxygen HFNC at 35 l/min. 03/04/20 Patient with Covid-19 infection, acute respiratory failure. he still needs to be inpatient, He is still on Oxygen HFNC , now at 30 l/min. History Interval history: shortness of breath Fever resolved Hospitalist Physical - Physical exam Narrative exam: GEN: Not in acute distress, obese, lying in bed HEENT: Normocephalic, atraumatic, Neck: supple, No JVD Lungs: Clear to auscultation bilaterally, heart;S1 and S2 reg, no murmurs, rubs or gallop Abd:soft, non tender, non distended, normal bowel sounds, Ext: awake,alert,oriented X 3, no clubbing, Neuro: Awake,alert, No focal neurological signs - Constitutional Vitals: Temp Pulse Resp BP Pulse Ox 99.0 F 62 18 127/73 94 03/04/20 05:19 03/04/20 08:56 03/04/20 05:19 03/04/20 08:56 03/04/20 05:19 HEART Score - HEART Score Troponin: Troponin T < 0.010 ng/mL (0.00-0.029) 02/25/20 20:16 Results - Labs CBC & Chem 7: 03/04/20 00:05 03/04/20 00:05 Labs: Laboratory Last Values WBC 7.4 K/mm3 (4.5-11.0) 03/04/20 00:05 RBC 3.96 M/mm3 (3.65-5.03) 03/04/20 00:05 Hgb 10.8 gm/dl (11.8-15.2) L 03/04/20 00:05 Hct 33.0 % (35.5-45.6) L 03/04/20 00:05 MCV 83 fl (84-94) L 03/04/20 00:05 MCH 27 pg (28-32) L 03/04/20 00:05 MCHC 33 % (32-34) 03/04/20 00:05 RDW 16.4 % (13.2-15.2) H 03/04/20 00:05 Plt Count 312 K/mm3 (140-440) 03/04/20 00:05 Lymph % (Auto) 4.3 % (13.4-35.0) L 03/04/20 00:05 [place] % (Auto) 5.6 % (0.0-7.3) 03/04/20 00:05 Eos % (Auto) 0.0 % (0.0-4.3) 03/04/20 00:05 Baso % (Auto) 0.1 % (0.0-1.8) 03/04/20 00:05 Lymph # 0.3 K/mm3 (1.2-5.4) L 03/04/20 00:05 [place] # 0.4 K/mm3 (0.0-0.8) 03/04/20 00:05 Eos # 0.0 K/mm3 (0.0-0.4) 03/04/20 00:05 Baso # 0.0 K/mm3 (0.0-0.1) 03/04/20 00:05 Add Manual Diff Complete 03/02/20 01:20 Total Counted 100 03/02/20 01:20 Seg Neutrophils % 90.0 % (40.0-70.0) H 03/04/20 00:05 Seg Neuts % (Manual) 96.0 % (40.0-70.0) H 03/02/20 01:20 Band Neutrophils % 0 % 03/02/20 01:20 Lymphocytes % (Manual) 3.0 % (13.4-35.0) L 03/02/20 01:20 Reactive Lymphs % (Man) 0 % 03/02/20 01:20 Monocytes % (Manual) 1.0 % (0.0-7.3) 03/02/20 01:20 Eosinophils % (Manual) 0 % (0.0-4.3) 03/02/20 01:20 Basophils % (Manual) 0 % (0.0-1.8) 03/02/20 01:20 Metamyelocytes % 0 % 03/02/20 01:20 Myelocytes % 0 % 03/02/20 01:20 Promyelocytes % 0 % 03/02/20 01:20 Blast Cells % 0 % 03/02/20 01:20 Nucleated RBC % Not Reportable 03/02/20 01:20 Seg Neutrophils # 6.7 K/mm3 (1.8-7.7) 03/04/20 00:05 Seg Neutrophils # Man 6.6 K/mm3 (1.8-7.7) 03/02/20 01:20 Band Neutrophils # 0.0 K/mm3 03/02/20 01:20 Lymphocytes # (Manual) 0.2 K/mm3 (1.2-5.4) L 03/02/20 01:20 Abs React Lymphs (Man) 0.0 K/mm3 03/02/20 01:20 Monocytes # (Manual) 0.1 K/mm3 (0.0-0.8) 03/02/20 01:20 Eosinophils # (Manual) 0.0 K/mm3 (0.0-0.4) 03/02/20 01:20 Basophils # (Manual) 0.0 K/mm3 (0.0-0.1) 03/02/20 01:20 Metamyelocytes # 0.0 K/mm3 03/02/20 01:20 Myelocytes # 0.0 K/mm3 03/02/20 01:20 Promyelocytes # 0.0 K/mm3 03/02/20 01:20 Blast Cells # 0.0 K/mm3 03/02/20 01:20 WBC Morphology Not Reportable 03/02/20 01:20 Hypersegmented Neuts Not Reportable 03/02/20 01:20 Hyposegmented Neuts Not Reportable 03/02/20 01:20 Hypogranular Neuts Not Reportable 03/02/20 01:20 Smudge Cells Not Reportable 03/02/20 01:20 Toxic Granulation Not Reportable 03/02/20 01:20 Toxic Vacuolation Not Reportable 03/02/20 01:20 Dohle Bodies Not Reportable 03/02/20 01:20 Pelger-Huet Anomaly Not Reportable 03/02/20 01:20 Norma Rods Not Reportable 03/02/20 01:20 Platelet Estimate Consistent w auto 03/02/20 01:20 Clumped Platelets Not Reportable 03/02/20 01:20 Plt Clumps, EDTA Not Reportable 03/02/20 01:20 Large Platelets Not Reportable 03/02/20 01:20 Giant Platelets Not Reportable 03/02/20 01:20 Platelet Satelliting Not Reportable 03/02/20 01:20 Plt Morphology Comment Not Reportable 03/02/20 01:20 RBC Morphology Not Reportable 03/02/20 01:20 Dimorphic RBCs Not Reportable 03/02/20 01:20 Polychromasia Not Reportable 03/02/20 01:20 Hypochromasia Not Reportable 03/02/20 01:20 Poikilocytosis Not Reportable 03/02/20 01:20 Anisocytosis Not Reportable 03/02/20 01:20 Microcytosis Not Reportable 03/02/20 01:20 Macrocytosis Not Reportable 03/02/20 01:20 Spherocytes Not Reportable 03/02/20 01:20 Pappenheimer Bodies Not Reportable 03/02/20 01:20 Sickle Cells Not Reportable 03/02/20 01:20 Target Cells Not Reportable 03/02/20 01:20 Tear Drop Cells Rare 03/02/20 01:20 Ovalocytes Not Reportable 03/02/20 01:20 Helmet Cells Not Reportable 03/02/20 01:20 [place] Bodies Not Reportable 03/02/20 01:20 Mallard Rings Not Reportable 03/02/20 01:20 [place] Cells Not Reportable 03/02/20 01:20 Bite Cells Not Reportable 03/02/20 01:20 Crenated Cell Not Reportable 03/02/20 01:20 Elliptocytes Rare 03/02/20 01:20 Acanthocytes (Spur) Not Reportable 03/02/20 01:20 Rouleaux Not Reportable 03/02/20 01:20 Hemoglobin C Crystals Not Reportable 03/02/20 01:20 Schistocytes Not Reportable 03/02/20 01:20 Malaria parasites Not Reportable 03/02/20 01:20 Roddy Bodies Not Reportable 03/02/20 01:20 Hem Pathologist Commnt No 03/02/20 01:20 PT 14.2 Sec. (12.2-14.9) 02/26/20 03:57 INR 1.09 (0.87-1.13) 02/26/20 03:57 D-Dimer 1211.40 ng/mlDDU (0-234) H 02/28/20 Unknown ABG pH 7.439 pH Units (7.350-7.450) 03/02/20 15:41 ABG pCO2 34.8 mm Hg 03/02/20 15:41 ABG pO2 85.4 mm Hg (80.0-90.0) 03/02/20 15:41 ABG HCO3 23.1 mmol/L (20.0-26.0) 03/02/20 15:41 ABG O2 Saturation 96.8 % (95.0-99.0) 03/02/20 15:41 ABG O2 Content 14.7 (0.0-44) 03/02/20 15:41 ABG Base Excess -0.7 mmol/L (-2.0-3.0) 03/02/20 15:41 ABG Hemoglobin 10.9 gm/dl (14.0-18.0) L 03/02/20 15:41 ABG Carboxyhemoglobin 1.1 % (0.0-5.0) 03/02/20 15:41 ABG Methemoglobin 0.4 % (0.0-1.5) 03/02/20 15:41 Oxyhemoglobin 95.4 % (95.0-99.0) 03/02/20 15:41 FiO2 40 % 03/02/20 15:41 Sodium 145 mmol/L (137-145) 03/04/20 00:05 Potassium 4.0 mmol/L (3.6-5.0) 03/04/20 00:05 Chloride 104.4 mmol/L (98-107) 03/04/20 00:05 Carbon Dioxide 25 mmol/L (22-30) 03/04/20 00:05 Anion Gap 20 mmol/L 03/04/20 00:05 BUN 33 mg/dL (9-20) H 03/04/20 00:05 Creatinine 1.0 mg/dL (0.8-1.5) 03/04/20 00:05 Estimated GFR > 60 ml/min 03/04/20 00:05 BUN/Creatinine Ratio 33 % 03/04/20 00:05 Glucose 311 mg/dL (75-100) H 03/04/20 00:05 POC Glucose 160 (70-105) H 02/29/20 17:50 Lactic Acid 1.60 mmol/L (0.7-2.0) 02/25/20 20:16 Calcium 8.4 mg/dL (8.4-10.2) 03/04/20 00:05 Ferritin 210.1 ng/mL (13.0-400.0) 02/28/20 15:39 Total Bilirubin 0.50 mg/dL (0.1-1.2) 02/29/20 15:30 AST 58 units/L (5-40) H 02/29/20 15:30 ALT 49 units/L (7-56) 02/29/20 15:30 Alkaline Phosphatase 30 units/L (35-129) L 02/29/20 15:30 Ammonia 42.0 umol/L (25-60) 02/25/20 20:16 Lactate Dehydrogenase 399 units/L (91-180) H 02/28/20 09:30 Total Creatine Kinase 1034 units/L (55-170) H 02/25/20 20:16 Troponin T < 0.010 ng/mL (0.00-0.029) 02/25/20 20:16 C-Reactive Protein 13.30 mg/dL (0.00-1.30) H 02/28/20 09:30 Total Protein 6.1 g/dL (6.3-8.2) L 02/29/20 15:30 Albumin 3.0 g/dL (3.9-5) L 02/29/20 15:30 Albumin/Globulin Ratio 1.0 % 02/29/20 15:30 Procalcitonin 0.22 ng/mL (<0.15) 02/29/20 04:56 TSH 1.370 mlU/mL (0.270-4.200) 03/01/20 09:57 Free T4 0.85 ng/dL (0.76-1.46) 03/01/20 09:57 Urine Color Yellow (Yellow) 02/25/20 21:12 Urine Turbidity Clear (Clear) 02/25/20 21:12 Urine pH 6.0 (5.0-7.0) 02/25/20 21:12 Ur Specific [place] 1.023 (1.003-1.030) 02/25/20 21:12 Urine Protein 100 mg/dl mg/dL (Negative) 02/25/20 21:12 Urine Glucose (UA) 50 mg/dL (Negative) 02/25/20 21:12 Urine Ketones Neg mg/dL (Negative) 02/25/20 21:12 Urine Blood Lg (Negative) 02/25/20 21:12 Urine Nitrite Neg (Negative) 02/25/20 21:12 Urine Bilirubin Neg (Negative) 02/25/20 21:12 Urine Urobilinogen 4.0 mg/dL (<2.0) 02/25/20 21:12 Ur Leukocyte Esterase Tr (Negative) 02/25/20 21:12 Urine WBC (Auto) 24.0 /HPF (0.0-6.0) H 02/25/20 21:12 Urine RBC (Auto) 2.0 /HPF (0.0-6.0) 02/25/20 21:12 Urine Mucus Few /HPF 02/25/20 21:12 Urine Yeast (Budding) Few /HPF 02/25/20 21:12 Salicylates < 0.3 mg/dL (2.8-20.0) L 02/25/20 20:16 Urine Opiates Screen Presumptive negative 02/25/20 Unknown Urine Methadone Screen Presumptive negative 02/25/20 Unknown Acetaminophen < 5.0 ug/mL (10.0-30.0) L 02/25/20 20:16 Ur Barbiturates Screen Presumptive negative 02/25/20 Unknown Valproic Acid 26.9 ug/mL (50-100) L 03/01/20 12:46 Ur Phencyclidine Scrn Presumptive negative 02/25/20 Unknown Ur Amphetamines Screen Presumptive negative 02/25/20 Unknown U Benzodiazepines Scrn Presumptive negative 02/25/20 Unknown Urine Cocaine Screen Presumptive negative 02/25/20 Unknown U Marijuana (THC) Screen Presumptive negative 02/25/20 Unknown Drugs of Abuse Note Disclamer 02/25/20 Unknown Plasma/Serum Alcohol < 0.01 % (0-0.07) 02/25/20 20:16 Coronavirus (PCR) Positive (Negative) A 02/25/20 07:45 Microbiology: Microbiology 02/29/20 08:47 Peripheral/Venous Blood Culture - Preliminary NO GROWTH AFTER 72 HOURS 02/29/20 07:54 Peripheral/Venous Blood Culture - Preliminary NO GROWTH AFTER 72 HOURS Velasquez/IV: Voiding Method Condom Catheter IV Catheter Type [left ac] Peripheral IV IV Catheter Type [Left Hand] Peripheral IV Active Medications - Current Medications Current Medications: Generic Name Dose Route Start Last Admin Trade Name Freq PRN Reason Stop Dose Admin Acetaminophen 650 mg 02/25/20 23:51 02/29/20 05:41 Tylenol PO 650 mg Q4H PRN Administration Pain MILD(1-3)/Fever >100.5/RAMOS Albuterol 2.5 mg 02/26/20 02:29 Proventil IH Q4HRT PRN Shortness Of Breath Ascorbic Acid 500 mg 02/28/20 15:00 03/04/20 08:58 Vitamin C PO 500 mg BID SABA Administration Haloperidol Lactate 5 mg 03/03/20 21:18 03/03/20 21:57 Haldol IM 5 mg Q6H PRN Administration Agitation Heparin Sodium (Porcine) 5,000 unit 02/26/20 14:00 03/04/20 05:22 Heparin SUB-Q 5,000 unit Q8HR SABA Administration Magnesium Hydroxide 30 ml 02/25/20 23:51 03/03/20 18:13 Milk Of Magnesia PO 30 ml Q4H PRN Administration Constipation Metoprolol Tartrate 25 mg 02/29/20 14:00 03/04/20 08:56 Metoprolol PO 25 mg TID SABA Administration Ondansetron HCl 4 mg 02/25/20 23:51 Zofran IV Q8H PRN Nausea And Vomiting Paliperidone 12 mg 02/27/20 16:00 03/04/20 08:57 Invega PO 12 mg QDAY SABA Administration Pantoprazole Sodium 20 mg 02/26/20 10:00 03/04/20 08:57 Protonix PO 20 mg BID SABA Administration Polyethylene Glycol 17 gm 03/03/20 21:18 Miralax 3350 PO QDAY PRN Constipation Sodium Chloride 10 ml 02/26/20 10:00 03/04/20 08:58 Sodium Chloride Flush Syringe 10 Ml IV 10 ml BID SABA Administration Sodium Chloride 10 ml 02/25/20 23:51 Sodium Chloride Flush Syringe 10 Ml IV PRN PRN LINE FLUSH Valproic Acid 250 mg 03/01/20 15:00 03/04/20 08:56 Depakene Liq PO 250 mg BID SABA Administration Zinc Sulfate 220 mg 02/28/20 15:00 03/04/20 08:58 Zinc Sulfate PO 220 mg BID SABA Administration Nutrition/Malnutrition Assess - Dietary Evaluation Nutrition/Malnutrition Findings: Nutrition Notes Start: 02/26/20 12:55 Freq: Status: Active Protocol: Document 03/04/20 08:35 LP (Rec: 03/04/20 08:39 LP [id number]) Nutrition Notes Initial or Follow up Reassessment Other Pertinent Diagnosis COVID-19, pneu, UTI, AMS, asthma, schizophrenia Current Diet Mechanical soft diet Labs/Tests Reviewed Pertinent Medications Reviewed Height 5 ft 8 in Weight 101.7 kg [place] Body Weight (kg) 70.00 BMI 34.0 Weight Status Obese Subjective/Other Information [facility] recommends [facility] soft diet with ground meat. Pt noted with consuming 83% of meals. Percent of energy/protein needs met: 97%/81% Burn Absent Trauma Absent Current % PO Good (75-100%) Minimum of two criteria Yes Fluid Accumulation Mild (non-severe) Reduced Polymerization Oven Tender Strength Measurably Reduced (severe) #1 Nutrition Diagnosis Malnutrition Diagnosis Progress(for reassessment Continues documentation) Is patient on ventilator? No Is Patient Ambulatory and/or Out of Bed No [facility] 2125.008 Kcal/Kg value to use for calculation 18 Approximate Energy Requirements Using 1831 kcal/Kg Calculation Used for Recommendations Kcal/kg Additional Notes Protein: 103-129g (1.2-1.5g/kg using AdjBW 86kg) Fluid: 1ml/kcal Nutrition Intervention Change Diet Order: Mechanical soft consistent CHO with ground meat Goal #1 Meet at least 75% of energy and protein needs Anticipated [facility] Follow-Up By: 03/10/20 Additional Comments Follow for stable intakes
--- NOTE | 2020-03-04 16:56 | Cat Scan Report ---
CT BRAIN: 03/04/2020 INDICATION / CLINICAL INFORMATION: CVA. COMPARISON: 02/25/2020 FINDINGS: BRAIN/INTRACRANIAL STRUCTURES: Unenhanced CT images of the brain were obtained and compared to the pr ior exam from 02/25/2020. There is been no change. There is no evidence of acute abnormality. Ventricles and sulci are prominent in size, consistent with diffuse cerebral atrophy. There is no evidence of acute ischemic injury, hemorrhage, or mass. There are no abnormal extra-axial fluid collections. EXTRACRANIAL STRUCTURES: Unremarkable. IMPRESSION: No acute abnormality. Cerebral atrophy. No change when compared to 02/25/2020. All CT scans at this location are performed using dose reduction to ALARA by means of automated expos ure control. Signer Name: Jah Stewart MD Signed: 03/04/2020 4:52 PM Workstation Name: [id number]
--- NOTE | 2020-03-04 18:13 | Progress Note ---
Assessment and Plan Acute hypoxemic respiratory failure. Right lung pneumonia. COVID-19 infection. History of schizophrenia. Systemic inflammatory response syndrome. Anemia that is microcytic. Mild hyponatremia. Mild metabolic acidosis. Elevated serum creatinine kinase. Urinary tract infection. - continue airborne, droplet and contact isolation for COVID-19 - trend inflammatory markers per facility protocol - Vit C, Vitamin D - Continue steroids - Accuchecks with glycemic control per SSI (While critically ill target blood glucose of 140-180 mg/dL; avoid hypoglycemia) - Intermittent diuresis while monitoring renal function, hemodynamics and electrolyte profile- redose lasix in the morning - Follow up CXR continues to show worsening of infiltrates, plan on getting speech evaluation for dysphagia to r/o silent aspiration Reordered CXR for the morning - Continue to wean supplemental oxygen for target O2 sats > 92% - Awake proning as tolerated - Continue bronchodilators with pulmonary hygiene per RT - Avoid benzodiazepines, reduce the possibility of delirium - prn analgesia per CPOT score - Maintenance of sleep-wake cycle, avoid delirium - Antibiotics per ID- on Unasyn for E.faecalis UTI - VTE prophylaxis-Heparin - Stress ulcer prophylaxis while he is on steroids and high flow oxygen - Mobility protocol, off loading and skin assessment for pressure ulcer prevention -Continue other care per attending / other consultants .... Re-evaluate in am & prn Subjective Date of service: 03/04/20 Principal diagnosis: Ac hypoxemic resp failure; R lung PNA; COVID-19 infection; UTI; AMS Interval history: Patient is seen today for: Acute hypoxemic respiratory failure; Right lung pneumonia; COVID-19 infection; History of schizophrenia; UTI Seen and examined at bedside; 24hour events reviewed; nursing and respiratory care staff consulted; no adverse overnight events reported to me; resting peacefully in bed; Objective Vital Signs - 12hr 03/04/20 03/04/20 03/04/20 08:00 08:56 10:00 Temperature Pulse Rate 62 Respiratory Rate Blood Pressure 127/73 O2 Sat by Pulse 93 94 Oximetry 03/04/20 03/04/20 12:09 14:00 Temperature 97.7 F Pulse Rate 68 68 Respiratory 22 Rate Blood Pressure 126/72 126/77 O2 Sat by Pulse 93 Oximetry Constitutional: lethargic, other (Obese man, atraumatic, normocephalic) Eyes: non-icteric, other (PERRL) ENT: oropharynx moist Neck: supple, no JVD, other (large neck circumfernece, grunting respirations in termittentl;y) Effort: mildly labored Ascultation: Bilateral: diminished breath sounds, rhonchi Percussion: Bilateral: not dull Cardiovascular: regular rate and rhythm, other (S1,S2) Gastrointestinal: normoactive bowel sounds, soft, non-tender, non-distended Integumentary: rash Extremities: no cyanosis, no edema, pink and warm, pulses normal Neurologic: non-focal exam (grossly, will move extemities), pupils equal and round, other (not obeying commands for me; ? schizoid) Psychiatric: other (unable to assess secondary to mental status) CBC and BMP: 03/04/20 00:05 03/04/20 00:05 ABG, PT/INR, D-dimer: ABG ABG pH 7.439 pH Units (7.350-7.450) 03/02/20 15:41 ABG pCO2 34.8 mm Hg 03/02/20 15:41 ABG pO2 85.4 mm Hg (80.0-90.0) 03/02/20 15:41 ABG O2 Saturation 96.8 % (95.0-99.0) 03/02/20 15:41 PT/INR, D-dimer PT 14.2 Sec. (12.2-14.9) 02/26/20 03:57 INR 1.09 (0.87-1.13) 02/26/20 03:57 D-Dimer 1211.40 ng/mlDDU (0-234) H 02/28/20 Unknown Abnormal lab findings: Abnormal Labs 02/25/20 02/25/20 02/25/20 07:45 20:16 20:16 Hgb 11.7 L Hct 35.3 L MCV 83 L MCH 27 L RDW 17.2 H Lymph % (Auto) 8.0 L [place] % (Auto) 8.5 H Lymph # 0.5 L Seg Neutrophils % 83.4 H Seg Neuts % (Manual) Lymphocytes % (Manual) Lymphocytes # (Manual) D-Dimer ABG pO2 ABG Hemoglobin Oxyhemoglobin Sodium 135 L Carbon Dioxide 21 L BUN 22 H Glucose 176 H POC Glucose Calcium 8.0 L AST Alkaline Phosphatase 33 L Lactate Dehydrogenase Total Creatine Kinase 1034 H C-Reactive Protein Total Protein 5.9 L Albumin 3.5 L Urine WBC (Auto) Salicylates Acetaminophen Valproic Acid Coronavirus (PCR) Positive A 02/25/20 02/25/20 02/25/20 20:16 20:16 21:12 Hgb Hct MCV MCH RDW Lymph % (Auto) [place] % (Auto) Lymph # Seg Neutrophils % Seg Neuts % (Manual) Lymphocytes % (Manual) Lymphocytes # (Manual) D-Dimer ABG pO2 ABG Hemoglobin Oxyhemoglobin Sodium Carbon Dioxide BUN Glucose POC Glucose Calcium AST Alkaline Phosphatase Lactate Dehydrogenase Total Creatine Kinase C-Reactive Protein Total Protein Albumin Urine WBC (Auto) 24.0 H Salicylates < 0.3 L Acetaminophen < 5.0 L Valproic Acid Coronavirus (PCR) 02/25/20 02/25/20 02/26/20 23:03 23:03 03:57 Hgb 10.9 L Hct 32.8 L MCV 83 L MCH RDW 17.6 H Lymph % (Auto) 10.3 L [place] % (Auto) Lymph # 0.6 L Seg Neutrophils % 83.7 H Seg Neuts % (Manual) Lymphocytes % (Manual) Lymphocytes # (Manual) D-Dimer 1216.06 H ABG pO2 ABG Hemoglobin Oxyhemoglobin Sodium Carbon Dioxide BUN Glucose 144 H POC Glucose Calcium AST Alkaline Phosphatase Lactate Dehydrogenase 308 H Total Creatine Kinase C-Reactive Protein 5.50 H Total Protein Albumin Urine WBC (Auto) Salicylates Acetaminophen Valproic Acid Coronavirus (PCR) 02/26/20 02/27/20 02/28/20 03:57 12:01 09:30 Hgb Hct MCV MCH RDW Lymph % (Auto) [place] % (Auto) Lymph # Seg Neutrophils % Seg Neuts % (Manual) Lymphocytes % (Manual) Lymphocytes # (Manual) D-Dimer ABG pO2 ABG Hemoglobin Oxyhemoglobin Sodium Carbon Dioxide 20 L BUN Glucose 194 H 162 H POC Glucose 128 H Calcium 8.0 L AST Alkaline Phosphatase Lactate Dehydrogenase 399 H Total Creatine Kinase C-Reactive Protein 13.30 H Total Protein Albumin Urine WBC (Auto) Salicylates Acetaminophen Valproic Acid Coronavirus (PCR) 02/28/20 02/28/20 02/29/20 11:36 Unknown 15:30 Hgb 11.2 L Hct 34.0 L MCV 83 L MCH 27 L RDW 17.8 H Lymph % (Auto) 6.4 L [place] % (Auto) Lymph # 0.3 L Seg Neutrophils % 88.1 H Seg Neuts % (Manual) Lymphocytes % (Manual) Lymphocytes # (Manual) D-Dimer 1211.40 H ABG pO2 ABG Hemoglobin Oxyhemoglobin Sodium Carbon Dioxide BUN Glucose POC Glucose 156 H Calcium AST Alkaline Phosphatase Lactate Dehydrogenase Total Creatine Kinase C-Reactive Protein Total Protein Albumin Urine WBC (Auto) Salicylates Acetaminophen Valproic Acid Coronavirus (PCR) 02/29/20 02/29/20 02/29/20 15:30 17:50 18:30 Hgb Hct MCV MCH RDW Lymph % (Auto) [place] % (Auto) Lymph # Seg Neutrophils % Seg Neuts % (Manual) Lymphocytes % (Manual) Lymphocytes # (Manual) D-Dimer ABG pO2 73.6 L ABG Hemoglobin 11.3 L Oxyhemoglobin 93.9 L Sodium Carbon Dioxide BUN Glucose 142 H POC Glucose 160 H Calcium 7.8 L AST 58 H Alkaline Phosphatase 30 L Lactate Dehydrogenase Total Creatine Kinase C-Reactive Protein Total Protein 6.1 L Albumin 3.0 L Urine WBC (Auto) Salicylates Acetaminophen Valproic Acid Coronavirus (PCR) 03/01/20 03/02/20 03/02/20 12:46 01:20 01:20 Hgb 11.1 L Hct 33.3 L MCV 82 L MCH 27 L RDW 16.8 H Lymph % (Auto) [place] % (Auto) Lymph # Seg Neutrophils % Seg Neuts % (Manual) 96.0 H Lymphocytes % (Manual) 3.0 L Lymphocytes # (Manual) 0.2 L D-Dimer ABG pO2 ABG Hemoglobin Oxyhemoglobin Sodium Carbon Dioxide BUN 30 H Glucose 274 H POC Glucose Calcium AST Alkaline Phosphatase Lactate Dehydrogenase Total Creatine Kinase C-Reactive Protein Total Protein Albumin Urine WBC (Auto) Salicylates Acetaminophen Valproic Acid 26.9 L Coronavirus (PCR) 03/02/20 03/04/20 03/04/20 15:41 00:05 00:05 Hgb 10.8 L Hct 33.0 L MCV 83 L MCH 27 L RDW 16.4 H Lymph % (Auto) 4.3 L [place] % (Auto) Lymph # 0.3 L Seg Neutrophils % 90.0 H Seg Neuts % (Manual) Lymphocytes % (Manual) Lymphocytes # (Manual) D-Dimer ABG pO2 ABG Hemoglobin 10.9 L Oxyhemoglobin Sodium Carbon Dioxide BUN 33 H Glucose 311 H POC Glucose Calcium AST Alkaline Phosphatase Lactate Dehydrogenase Total Creatine Kinase C-Reactive Protein Total Protein Albumin Urine WBC (Auto) Salicylates Acetaminophen Valproic Acid Coronavirus (PCR) Allied health notes reviewed: nursing
[2020-03-05] MEDS: HEPARIN 5,000 UNIT/1 ML VIAL SUB-Q SCH ×3 (05:12→20:59)
--- NOTE | 2020-03-05 10:04 | Progress Note ---
Assessment and Plan Acute hypoxemic resp failure: on HFO2, CXR reviewed- worsening infiltrates on CXR COVID pneumonia: COVID test positive Multifocal SIRS Acute encephalopathy Left mastoiditis and left otitis media Mild UTI: Urine culture grew 10,000-100,000 colonies of usual skin tanya- E faecalis h/o Asthma -continue airborne, droplet and contact isolation for COVID-19 -trend inflammatory markers per facility protocol -Vit C, Vitamin D -Continue steroids -Accuchecks with glycemic control per SSI (While critically ill target blood g lucose of 140-180 mg/dL; avoid hypoglycemia) -Intermittent diuresis while monitoring renal function, hemodynamics and electrolyte profile- redose lasix prn -Follow up CXR continues to show worsening of infiltrates, plan on getting speech evaluation for dysphagia to r/o silent aspiration -Continue to wean supplemental oxygen for target O2 sats > 92% -Awake proning as tolerated -Continue bronchodilators with pulmonary hygiene per RT - Avoid benzodiazepines, reduce the possibility of delirium - prn analgesia per CPOT score - Maintenance of sleep-wake cycle, avoid delirium - Antibiotics per ID- on Unasyn for E.faecalis UTI - VTE prophylaxis-Heparin -Stress ulcer prophylaxis while he is on steroids and high flow oxygen -Mobility protocol, off loading and skin assessment for pressure ulcer p revention -Continue other care per attending / other consultants Plan for MRI of his brain - he is a lee of the [facility], consent needs to be obtained from his guardian Can get MRI brain if he is able to maintain oxygen saturations on 100% NRBM .... Re-evaluate in am & prn Subjective Date of service: 03/05/20 Principal diagnosis: Ac hypoxemic resp failure; R lung PNA; COVID-19 infection; UTI; AMS Interval history: Patient is seen today for: acute hypoxic respiratory failure; COVID infection; multifocal pneumonia; acute toxic-metabolic encephalopathy Seen and examined at bedside; 24hour events reviewed; nursing and respiratory care staff consulted; no adverse overnight events reported to me; No diarrhea, no vomiting. MRI not done- patient is a lee of the [facility], consent needs to be obtained from guardian On steroids Objective Vital Signs - 12hr 03/04/20 03/05/20 03/05/20 22:34 01:36 05:23 Temperature 98.4 F 98.8 F Pulse Rate 61 80 Respiratory 18 24 Rate Blood Pressure 120/69 126/71 O2 Sat by Pulse 97 94 97 Oximetry 03/05/20 08:00 Temperature Pulse Rate Respiratory Rate Blood Pressure O2 Sat by Pulse 95 Oximetry Constitutional: lethargic, other (Obese man, atraumatic, normocep halic) Eyes: non-icteric, other (PERRL) ENT: oropharynx moist Neck: supple, no JVD, other (large neck circumfernece, grunting respirations intermittentl;y) Effort: mildly labored Ascultation: Bilateral: diminished breath sounds, rhonchi Percussion: Bilateral: not dull Cardiovascular: regular rate and rhythm, other (S1,S2) Gastrointestinal: normoactive bowel sounds, soft, non-tender, non-distended Integumentary: rash Extremities: no cyanosis, no edema, pink and warm, pulses normal Neurologic: non-focal exam (grossly, will move extemities), pupils equal and round, other (not obeying commands for me; ? schizoid) Psychiatric: other (unable to assess secondary to mental status) CBC and BMP: 03/04/20 00:05 03/04/20 00:05 ABG, PT/INR, D-dimer: ABG ABG pH 7.439 pH Units (7.350-7.450) 03/02/20 15:41 ABG pCO2 34.8 mm Hg 03/02/20 15:41 ABG pO2 85.4 mm Hg (80.0-90.0) 03/02/20 15:41 ABG O2 Saturation 96.8 % (95.0-99.0) 03/02/20 15:41 PT/INR, D-dimer PT 14.2 Sec. (12.2-14.9) 02/26/20 03:57 INR 1.09 (0.87-1.13) 02/26/20 03:57 D-Dimer 1211.40 ng/mlDDU (0-234) H 02/28/20 Unknown Abnormal lab findings: Abnormal Labs 02/25/20 02/25/20 02/25/20 07:45 20:16 20:16 Hgb 11.7 L Hct 35.3 L MCV 83 L MCH 27 L RDW 17.2 H Lymph % (Auto) 8.0 L [place] % (Auto) 8.5 H Lymph # 0.5 L Seg Neutrophils % 83.4 H Seg Neuts % (Manual) Lymphocytes % (Manual) Lymphocytes # (Manual) D-Dimer ABG pO2 ABG Hemoglobin Oxyhemoglobin Sodium 135 L Carbon Dioxide 21 L BUN 22 H Glucose 176 H POC Glucose Calcium 8.0 L AST Alkaline Phosphatase 33 L Lactate Dehydrogenase Total Creatine Kinase 1034 H C-Reactive Protein Total Protein 5.9 L Albumin 3.5 L Urine WBC (Auto) Salicylates Acetaminophen Valproic Acid Coronavirus (PCR) Positive A 02/25/20 02/25/20 02/25/20 20:16 20:16 21:12 Hgb Hct MCV MCH RDW Lymph % (Auto) [place] % (Auto) Lymph # Seg Neutrophils % Seg Neuts % (Manual) Lymphocytes % (Manual) Lymphocytes # (Manual) D-Dimer ABG pO2 ABG Hemoglobin Oxyhemoglobin Sodium Carbon Dioxide BUN Glucose POC Glucose Calcium AST Alkaline Phosphatase Lactate Dehydrogenase Total Creatine Kinase C-Reactive Protein Total Protein Albumin Urine WBC (Auto) 24.0 H Salicylates < 0.3 L Acetaminophen < 5.0 L Valproic Acid Coronavirus (PCR) 02/25/20 02/25/20 02/26/20 23:03 23:03 03:57 Hgb 10.9 L Hct 32.8 L MCV 83 L MCH RDW 17.6 H Lymph % (Auto) 10.3 L [place] % (Auto) Lymph # 0.6 L Seg Neutrophils % 83.7 H Seg Neuts % (Manual) Lymphocytes % (Manual) Lymphocytes # (Manual) D-Dimer 1216.06 H ABG pO2 ABG Hemoglobin Oxyhemoglobin Sodium Carbon Dioxide BUN Glucose 144 H POC Glucose Calcium AST Alkaline Phosphatase Lactate Dehydrogenase 308 H Total Creatine Kinase C-Reactive Protein 5.50 H Total Protein Albumin Urine WBC (Auto) Salicylates Acetaminophen Valproic Acid Coronavirus (PCR) 02/26/20 02/27/20 02/28/20 03:57 12:01 09:30 Hgb Hct MCV MCH RDW Lymph % (Auto) [place] % (Auto) Lymph # Seg Neutrophils % Seg Neuts % (Manual) Lymphocytes % (Manual) Lymphocytes # (Manual) D-Dimer ABG pO2 ABG Hemoglobin Oxyhemoglobin Sodium Carbon Dioxide 20 L BUN Glucose 194 H 162 H POC Glucose 128 H Calcium 8.0 L AST Alkaline Phosphatase Lactate Dehydrogenase 399 H Total Creatine Kinase C-Reactive Protein 13.30 H Total Protein Albumin Urine WBC (Auto) Salicylates Acetaminophen Valproic Acid Coronavirus (PCR) 02/28/20 02/28/20 02/29/20 11:36 Unknown 15:30 Hgb 11.2 L Hct 34.0 L MCV 83 L MCH 27 L RDW 17.8 H Lymph % (Auto) 6.4 L [place] % (Auto) Lymph # 0.3 L Seg Neutrophils % 88.1 H Seg Neuts % (Manual) Lymphocytes % (Manual) Lymphocytes # (Manual) D-Dimer 1211.40 H ABG pO2 ABG Hemoglobin Oxyhemoglobin Sodium Carbon Dioxide BUN Glucose POC Glucose 156 H Calcium AST Alkaline Phosphatase Lactate Dehydrogenase Total Creatine Kinase C-Reactive Protein Total Protein Albumin Urine WBC (Auto) Salicylates Acetaminophen Valproic Acid Coronavirus (PCR) 02/29/20 02/29/20 02/29/20 15:30 17:50 18:30 Hgb Hct MCV MCH RDW Lymph % (Auto) [place] % (Auto) Lymph # Seg Neutrophils % Seg Neuts % (Manual) Lymphocytes % (Manual) Lymphocytes # (Manual) D-Dimer ABG pO2 73.6 L ABG Hemoglobin 11.3 L Oxyhemoglobin 93.9 L Sodium Carbon Dioxide BUN Glucose 142 H POC Glucose 160 H Calcium 7.8 L AST 58 H Alkaline Phosphatase 30 L Lactate Dehydrogenase Total Creatine Kinase C-Reactive Protein Total Protein 6.1 L Albumin 3.0 L Urine WBC (Auto) Salicylates Acetaminophen Valproic Acid Coronavirus (PCR) 03/01/20 03/02/20 03/02/20 12:46 01:20 01:20 Hgb 11.1 L Hct 33.3 L MCV 82 L MCH 27 L RDW 16.8 H Lymph % (Auto) [place] % (Auto) Lymph # Seg Neutrophils % Seg Neuts % (Manual) 96.0 H Lymphocytes % (Manual) 3.0 L Lymphocytes # (Manual) 0.2 L D-Dimer ABG pO2 ABG Hemoglobin Oxyhemoglobin Sodium Carbon Dioxide BUN 30 H Glucose 274 H POC Glucose Calcium AST Alkaline Phosphatase Lactate Dehydrogenase Total Creatine Kinase C-Reactive Protein Total Protein Albumin Urine WBC (Auto) Salicylates Acetaminophen Valproic Acid 26.9 L Coronavirus (PCR) 03/02/20 03/04/20 03/04/20 15:41 00:05 00:05 Hgb 10.8 L Hct 33.0 L MCV 83 L MCH 27 L RDW 16.4 H Lymph % (Auto) 4.3 L [place] % (Auto) Lymph # 0.3 L Seg Neutrophils % 90.0 H Seg Neuts % (Manual) Lymphocytes % (Manual) Lymphocytes # (Manual) D-Dimer ABG pO2 ABG Hemoglobin 10.9 L Oxyhemoglobin Sodium Carbon Dioxide BUN 33 H Glucose 311 H POC Glucose Calcium AST Alkaline Phosphatase Lactate Dehydrogenase Total Creatine Kinase C-Reactive Protein Total Protein Albumin Urine WBC (Auto) Salicylates Acetaminophen Valproic Acid Coronavirus (PCR) Allied health notes reviewed: nursing
--- NOTE | 2020-03-05 10:40 | Progress Note ---
Assessment and Plan Assessment and plan: Sepsis. Etiology secondary to pneumonia and UTI. Follow-up blood and urine cultures. COVID-19 infection. PCR positive on 02/25/2020. Right upper lobe pneumonia. Continue to follow serial chest x-ray and antibiotics. ID consulted. Acute hypoxemic respiratory failure. Etiology secondary to above. Continue O2 to maintain sats greater than 92%. BiPAP as clinically indicated. UTI. Continue IV antibiotics and follow-up urine cultures. Toxic metabolic encephalopathy. Etiology secondary to above. Continue to treat underlying cause. Mastoiditis/left otitis media 02/27/2020. Continue COVID isolation precautions. Ceftriaxone and azithromycin IV per ID recommendations. MRI brain. Monitor inflammatory markers. D-dimer 1216, LDH 308, CRP 5.5 and ferritin 117. Patient currently with high flow nasal [id number] L/min FiO2 35%. Pulmonary consulted. 02/28/2020. Patient currently with HFNC--35 L/min with FiO2 35%. Follow-up repeat inflammatory markers today. Continue antibiotics of ceftriaxone and azithromycin. Follow-up MRI brain. 02/29/2020. Consider IV Solu-Medrol per pulmonary. Patient currently with HFNC--35 L/min with FiO2 35% satting 95%. Follow-up inflammatory markers. Check Echocardiogram. ID changed antibiotics from ceftriaxone/azithromycin to Unasyn to cover for the faecalis UTI. MRI brain when stable. 03/01/20 Patient with Covid-19 infection, acute respiratory failure and toxic metabolic encephalopathy. Fever yesterday. Still on high flow Oxygen. 03/02/20 Patient with Covid-19 infection, acute respiratory failure. patient still on Oxygen HFNC at 35 l/min with oxygen sat 92% 03/03/20 Patient with Covid-19 infection, acute respiratory failure. he still needs to be inpatient, He is still on Oxygen HFNC at 35 l/min. 03/04/20 Patient with Covid-19 infection, acute respiratory failure. he still needs to be inpatient, He is still on Oxygen HFNC , now at 30 l/min. 03/05/20 Patient with Covid-19 infection, acute respiratory failure. he still needs to be inpatient, He is still on Oxygen HFNC , still at 30 l/min. Will discuss with resp therapist to continue weaning off Oxygen. History Interval history: shortness of breath Fever resolved Hospitalist Physical - Physical exam Narrative exam: GEN: Not in acute distress, obese, lying in bed HEENT: Normocephalic, atraumatic, Neck: supple, No JVD Lungs: Clear to auscultation bilaterally, heart;S1 and S2 reg, no murmurs, rubs or gallop Abd:soft, non tender, non distended, normal bowel sounds, Ext: awake,alert,oriented X 3, no clubbing, Neuro: Awake,alert, No focal neurological signs - Constitutional Vitals: Temp Pulse Resp BP Pulse Ox 98.8 F 80 24 126/71 95 03/05/20 05:23 03/05/20 05:23 03/05/20 05:23 03/05/20 05:23 03/05/20 08:00 HEART Score - HEART Score Troponin: Troponin T < 0.010 ng/mL (0.00-0.029) 02/25/20 20:16 Results - Labs CBC & Chem 7: 03/04/20 00:05 03/04/20 00:05 Labs: Laboratory Last Values WBC 7.4 K/mm3 (4.5-11.0) 03/04/20 00:05 RBC 3.96 M/mm3 (3.65-5.03) 03/04/20 00:05 Hgb 10.8 gm/dl (11.8-15.2) L 03/04/20 00:05 Hct 33.0 % (35.5-45.6) L 03/04/20 00:05 MCV 83 fl (84-94) L 03/04/20 00:05 MCH 27 pg (28-32) L 03/04/20 00:05 MCHC 33 % (32-34) 03/04/20 00:05 RDW 16.4 % (13.2-15.2) H 03/04/20 00:05 Plt Count 312 K/mm3 (140-440) 03/04/20 00:05 Lymph % (Auto) 4.3 % (13.4-35.0) L 03/04/20 00:05 [place] % (Auto) 5.6 % (0.0-7.3) 03/04/20 00:05 Eos % (Auto) 0.0 % (0.0-4.3) 03/04/20 00:05 Baso % (Auto) 0.1 % (0.0-1.8) 03/04/20 00:05 Lymph # 0.3 K/mm3 (1.2-5.4) L 03/04/20 00:05 [place] # 0.4 K/mm3 (0.0-0.8) 03/04/20 00:05 Eos # 0.0 K/mm3 (0.0-0.4) 03/04/20 00:05 Baso # 0.0 K/mm3 (0.0-0.1) 03/04/20 00:05 Add Manual Diff Complete 03/02/20 01:20 Total Counted 100 03/02/20 01:20 Seg Neutrophils % 90.0 % (40.0-70.0) H 03/04/20 00:05 Seg Neuts % (Manual) 96.0 % (40.0-70.0) H 03/02/20 01:20 Band Neutrophils % 0 % 03/02/20 01:20 Lymphocytes % (Manual) 3.0 % (13.4-35.0) L 03/02/20 01:20 Reactive Lymphs % (Man) 0 % 03/02/20 01:20 Monocytes % (Manual) 1.0 % (0.0-7.3) 03/02/20 01:20 Eosinophils % (Manual) 0 % (0.0-4.3) 03/02/20 01:20 Basophils % (Manual) 0 % (0.0-1.8) 03/02/20 01:20 Metamyelocytes % 0 % 03/02/20 01:20 Myelocytes % 0 % 03/02/20 01:20 Promyelocytes % 0 % 03/02/20 01:20 Blast Cells % 0 % 03/02/20 01:20 Nucleated RBC % Not Reportable 03/02/20 01:20 Seg Neutrophils # 6.7 K/mm3 (1.8-7.7) 03/04/20 00:05 Seg Neutrophils # Man 6.6 K/mm3 (1.8-7.7) 03/02/20 01:20 Band Neutrophils # 0.0 K/mm3 03/02/20 01:20 Lymphocytes # (Manual) 0.2 K/mm3 (1.2-5.4) L 03/02/20 01:20 Abs React Lymphs (Man) 0.0 K/mm3 03/02/20 01:20 Monocytes # (Manual) 0.1 K/mm3 (0.0-0.8) 03/02/20 01:20 Eosinophils # (Manual) 0.0 K/mm3 (0.0-0.4) 03/02/20 01:20 Basophils # (Manual) 0.0 K/mm3 (0.0-0.1) 03/02/20 01:20 Metamyelocytes # 0.0 K/mm3 03/02/20 01:20 Myelocytes # 0.0 K/mm3 03/02/20 01:20 Promyelocytes # 0.0 K/mm3 03/02/20 01:20 Blast Cells # 0.0 K/mm3 03/02/20 01:20 WBC Morphology Not Reportable 03/02/20 01:20 Hypersegmented Neuts Not Reportable 03/02/20 01:20 Hyposegmented Neuts Not Reportable 03/02/20 01:20 Hypogranular Neuts Not Reportable 03/02/20 01:20 Smudge Cells Not Reportable 03/02/20 01:20 Toxic Granulation Not Reportable 03/02/20 01:20 Toxic Vacuolation Not Reportable 03/02/20 01:20 Dohle Bodies Not Reportable 03/02/20 01:20 Pelger-Huet Anomaly Not Reportable 03/02/20 01:20 Norma Rods Not Reportable 03/02/20 01:20 Platelet Estimate Consistent w auto 03/02/20 01:20 Clumped Platelets Not Reportable 03/02/20 01:20 Plt Clumps, EDTA Not Reportable 03/02/20 01:20 Large Platelets Not Reportable 03/02/20 01:20 Giant Platelets Not Reportable 03/02/20 01:20 Platelet Satelliting Not Reportable 03/02/20 01:20 Plt Morphology Comment Not Reportable 03/02/20 01:20 RBC Morphology Not Reportable 03/02/20 01:20 Dimorphic RBCs Not Reportable 03/02/20 01:20 Polychromasia Not Reportable 03/02/20 01:20 Hypochromasia Not Reportable 03/02/20 01:20 Poikilocytosis Not Reportable 03/02/20 01:20 Anisocytosis Not Reportable 03/02/20 01:20 Microcytosis Not Reportable 03/02/20 01:20 Macrocytosis Not Reportable 03/02/20 01:20 Spherocytes Not Reportable 03/02/20 01:20 Pappenheimer Bodies Not Reportable 03/02/20 01:20 Sickle Cells Not Reportable 03/02/20 01:20 Target Cells Not Reportable 03/02/20 01:20 Tear Drop Cells Rare 03/02/20 01:20 Ovalocytes Not Reportable 03/02/20 01:20 Helmet Cells Not Reportable 03/02/20 01:20 [place] Bodies Not Reportable 03/02/20 01:20 [place] Rings Not Reportable 03/02/20 01:20 Michelle Cells Not Reportable 03/02/20 01:20 Bite Cells Not Reportable 03/02/20 01:20 Crenated Cell Not Reportable 03/02/20 01:20 Elliptocytes Rare 03/02/20 01:20 Acanthocytes (Spur) Not Reportable 03/02/20 01:20 Rouleaux Not Reportable 03/02/20 01:20 Hemoglobin C Crystals Not Reportable 03/02/20 01:20 Schistocytes Not Reportable 03/02/20 01:20 Malaria parasites Not Reportable 03/02/20 01:20 Roddy Bodies Not Reportable 03/02/20 01:20 Hem Pathologist Commnt No 03/02/20 01:20 PT 14.2 Sec. (12.2-14.9) 02/26/20 03:57 INR 1.09 (0.87-1.13) 02/26/20 03:57 D-Dimer 1211.40 ng/mlDDU (0-234) H 02/28/20 Unknown ABG pH 7.439 pH Units (7.350-7.450) 03/02/20 15:41 ABG pCO2 34.8 mm Hg 03/02/20 15:41 ABG pO2 85.4 mm Hg (80.0-90.0) 03/02/20 15:41 ABG HCO3 23.1 mmol/L (20.0-26.0) 03/02/20 15:41 ABG O2 Saturation 96.8 % (95.0-99.0) 03/02/20 15:41 ABG O2 Content 14.7 (0.0-44) 03/02/20 15:41 ABG Base Excess -0.7 mmol/L (-2.0-3.0) 03/02/20 15:41 ABG Hemoglobin 10.9 gm/dl (14.0-18.0) L 03/02/20 15:41 ABG Carboxyhemoglobin 1.1 % (0.0-5.0) 03/02/20 15:41 ABG Methemoglobin 0.4 % (0.0-1.5) 03/02/20 15:41 Oxyhemoglobin 95.4 % (95.0-99.0) 03/02/20 15:41 FiO2 40 % 03/02/20 15:41 Sodium 145 mmol/L (137-145) 03/04/20 00:05 Potassium 4.0 mmol/L (3.6-5.0) 03/04/20 00:05 Chloride 104.4 mmol/L (98-107) 03/04/20 00:05 Carbon Dioxide 25 mmol/L (22-30) 03/04/20 00:05 Anion Gap 20 mmol/L 03/04/20 00:05 BUN 33 mg/dL (9-20) H 03/04/20 00:05 Creatinine 1.0 mg/dL (0.8-1.5) 03/04/20 00:05 Estimated GFR > 60 ml/min 03/04/20 00:05 BUN/Creatinine Ratio 33 % 03/04/20 00:05 Glucose 311 mg/dL (75-100) H 03/04/20 00:05 POC Glucose 160 (70-105) H 02/29/20 17:50 Lactic Acid 1.60 mmol/L (0.7-2.0) 02/25/20 20:16 Calcium 8.4 mg/dL (8.4-10.2) 03/04/20 00:05 Ferritin 210.1 ng/mL (13.0-400.0) 02/28/20 15:39 Total Bilirubin 0.50 mg/dL (0.1-1.2) 02/29/20 15:30 AST 58 units/L (5-40) H 02/29/20 15:30 ALT 49 units/L (7-56) 02/29/20 15:30 Alkaline Phosphatase 30 units/L (35-129) L 02/29/20 15:30 Ammonia 42.0 umol/L (25-60) 02/25/20 20:16 Lactate Dehydrogenase 399 units/L (91-180) H 02/28/20 09:30 Total Creatine Kinase 1034 units/L (55-170) H 02/25/20 20:16 Troponin T < 0.010 ng/mL (0.00-0.029) 02/25/20 20:16 C-Reactive Protein 13.30 mg/dL (0.00-1.30) H 02/28/20 09:30 Total Protein 6.1 g/dL (6.3-8.2) L 02/29/20 15:30 Albumin 3.0 g/dL (3.9-5) L 02/29/20 15:30 Albumin/Globulin Ratio 1.0 % 02/29/20 15:30 Procalcitonin 0.22 ng/mL (<0.15) 02/29/20 04:56 TSH 1.370 mlU/mL (0.270-4.200) 03/01/20 09:57 Free T4 0.85 ng/dL (0.76-1.46) 03/01/20 09:57 Urine Color Yellow (Yellow) 02/25/20 21:12 Urine Turbidity Clear (Clear) 02/25/20 21:12 Urine pH 6.0 (5.0-7.0) 02/25/20 21:12 Ur Specific [place] 1.023 (1.003-1.030) 02/25/20 21:12 Urine Protein 100 mg/dl mg/dL (Negative) 02/25/20 21:12 Urine Glucose (UA) 50 mg/dL (Negative) 02/25/20 21:12 Urine Ketones Neg mg/dL (Negative) 02/25/20 21:12 Urine Blood Lg (Negative) 02/25/20 21:12 Urine Nitrite Neg (Negative) 02/25/20 21:12 Urine Bilirubin Neg (Negative) 02/25/20 21:12 Urine Urobilinogen 4.0 mg/dL (<2.0) 02/25/20 21:12 Ur Leukocyte Esterase Tr (Negative) 02/25/20 21:12 Urine WBC (Auto) 24.0 /HPF (0.0-6.0) H 02/25/20 21:12 Urine RBC (Auto) 2.0 /HPF (0.0-6.0) 02/25/20 21:12 Urine Mucus Few /HPF 02/25/20 21:12 Urine Yeast (Budding) Few /HPF 02/25/20 21:12 Salicylates < 0.3 mg/dL (2.8-20.0) L 02/25/20 20:16 Urine Opiates Screen Presumptive negative 02/25/20 Unknown Urine Methadone Screen Presumptive negative 02/25/20 Unknown Acetaminophen < 5.0 ug/mL (10.0-30.0) L 02/25/20 20:16 Ur Barbiturates Screen Presumptive negative 02/25/20 Unknown Valproic Acid 26.9 ug/mL (50-100) L 03/01/20 12:46 Ur Phencyclidine Scrn Presumptive negative 02/25/20 Unknown Ur Amphetamines Screen Presumptive negative 02/25/20 Unknown U Benzodiazepines Scrn Presumptive negative 02/25/20 Unknown Urine Cocaine Screen Presumptive negative 02/25/20 Unknown U Marijuana (THC) Screen Presumptive negative 02/25/20 Unknown Drugs of Abuse Note Disclamer 02/25/20 Unknown Plasma/Serum Alcohol < 0.01 % (0-0.07) 02/25/20 20:16 Coronavirus (PCR) Positive (Negative) A 02/25/20 07:45 Microbiology: Microbiology 02/29/20 08:47 Peripheral/Venous Blood Culture - Final NO GROWTH AFTER 5 DAYS 02/29/20 07:54 Peripheral/Venous Blood Culture - Final NO GROWTH AFTER 5 DAYS Velasquez/IV: Voiding Method Condom Catheter IV Catheter Type [left ac] Peripheral IV IV Catheter Type [Left Hand] Peripheral IV Active Medications - Current Medications Current Medications: Generic Name Dose Route Start Last Admin Trade Name Freq PRN Reason Stop Dose Admin Acetaminophen 650 mg 02/25/20 23:51 02/29/20 05:41 Tylenol PO 650 mg Q4H PRN Administration Pain MILD(1-3)/Fever >100.5/RAMOS Albuterol 2.5 mg 02/26/20 02:29 Proventil IH Q4HRT PRN Shortness Of Breath Ascorbic Acid 500 mg 02/28/20 15:00 03/04/20 22:42 Vitamin C PO 500 mg BID SABA Administration Haloperidol Lactate 5 mg 03/03/20 21:18 03/03/20 21:57 Haldol IM 5 mg Q6H PRN Administration Agitation Heparin Sodium (Porcine) 5,000 unit 02/26/20 14:00 03/05/20 05:12 Heparin SUB-Q 5,000 unit Q8HR SABA Administration Magnesium Hydroxide 30 ml 02/25/20 23:51 03/03/20 18:13 Milk Of Magnesia PO 30 ml Q4H PRN Administration Constipation Metoprolol Tartrate 25 mg 02/29/20 14:00 03/04/20 22:49 Metoprolol PO Not Given TID SAAB Ondansetron HCl 4 mg 02/25/20 23:51 Zofran IV Q8H PRN Nausea And Vomiting Paliperidone 12 mg 02/27/20 16:00 03/04/20 09:39 Invega PO Not Given QDAY SABA Pantoprazole Sodium 20 mg 02/26/20 10:00 03/04/20 22:47 Protonix PO 20 mg BID SABA Administration Polyethylene Glycol 17 gm 03/03/20 21:18 Miralax 3350 PO QDAY PRN Constipation Sodium Chloride 10 ml 02/26/20 10:00 03/04/20 22:42 Sodium Chloride Flush Syringe 10 Ml IV 10 ml BID SABA Administration Sodium Chloride 10 ml 02/25/20 23:51 Sodium Chloride Flush Syringe 10 Ml IV PRN PRN LINE FLUSH Valproic Acid 250 mg 03/01/20 15:00 03/04/20 22:44 Depakene Liq PO 250 mg BID SABA Administration Zinc Sulfate 220 mg 02/28/20 15:00 03/04/20 22:42 Zinc Sulfate PO 220 mg BID SABA Administration Nutrition/Malnutrition Assess - Dietary Evaluation Nutrition/Malnutrition Findings: Nutrition Notes Start: 02/26/20 12:55 Freq: Status: Active Protocol: Document 03/04/20 08:35 LP (Rec: 03/04/20 08:39 LP [id number]) Nutrition Notes Initial or Follow up Reassessment Other Pertinent Diagnosis COVID-19, pneu, UTI, AMS, asthma, schizophrenia Current Diet Mechanical soft diet Labs/Tests Reviewed Pertinent Medications Reviewed Height 5 ft 8 in Weight 101.7 kg [place] Body Weight (kg) 70.00 BMI 34.0 Weight Status Obese Subjective/Other Information PATIENT TRANSPORT OFFICER recommends mech soft diet with ground meat. Pt noted with consuming 83% of meals. Percent of energy/protein needs met: 97%/81% Burn Absent Trauma Absent Current % PO Good (75-100%) Minimum of two criteria Yes Fluid Accumulation Mild (non-severe) Reduced [place] Strength Measurably Reduced (severe) #1 Nutrition Diagnosis Malnutrition Diagnosis Progress(for reassessment Continues documentation) Is patient on ventilator? No Is Patient Ambulatory and/or Out of Bed No REE-([facility]-confined to bed) 2125.008 Kcal/Kg value to use for calculation 18 Approximate Energy Requirements Using 1831 kcal/Kg Calculation Used for Recommendations Kcal/kg Additional Notes Protein: 103-129g (1.2-1.5g/kg using AdjBW 86kg) Fluid: 1ml/kcal Nutrition Intervention Change Diet Order: Mechanical soft consistent CHO with ground meat Goal #1 Meet at least 75% of energy and protein needs Anticipated Discharge Needs: regular/mech soft Follow-Up By: 03/10/20 Additional Comments Follow for stable intakes
[2020-03-05] MEDS: VALPROIC ACID 250 MG/5 ML ORAL LIQD PO SCH ×2 (11:34→20:59)
[2020-03-05] MEDS: PANTOPRAZOLE 20 MG TAB PO SCH ×2 (11:34→21:00)
[2020-03-05] MEDS: ZINC SULFATE 220 MG CAP PO SCH ×2 (11:34→21:00)
[2020-03-05] MEDS: ASCORBIC ACID 500 MG TAB PO SCH ×2 (11:35→21:00)
[2020-03-05] MEDS: PALIPERIDONE ER 3 MG TAB PO SCH (11:35)
[2020-03-05] MEDS: METOPROLOL TARTRATE 25 MG TAB PO SCH ×3 (11:36→21:04)
[2020-03-05] MEDS: ACETAMINOPHEN 325 MG TAB PO PRN (18:26)
[2020-03-06] MEDS: HEPARIN 5,000 UNIT/1 ML VIAL SUB-Q SCH ×3 (05:10→21:56)
--- NOTE | 2020-03-06 08:15 | Progress Note ---
Assessment and Plan Acute hypoxemic resp failure: on HFO2, CXR reviewed- worsening infiltrates on CXR COVID pneumonia: COVID test positive Multifocal SIRS Acute encephalopathy Left mastoiditis and left otitis media Mild UTI: Urine culture grew 10,000-100,000 colonies of usual skin tanya- E faecalis h/o Asthma Continue to wean supplemental oxygen for target O2 sats > 92% Plan to switch to regular flow oxygen in the morning CXR, ABG prn -continue airborne, droplet and contact isolation for COVID-19 -trend inflammatory markers per facility protocol -Vit C, Vitamin D -Wean steroids -Accuchecks with glycemic control per SSI (While critically ill target blood glucose of 140-180 mg/dL; avoid hypoglycemia) -Intermittent diuresis while monitoring renal function, hemodynamics and electrolyte profile- re dose lasix prn -Awake proning as tolerated -Continue bronchodilators with pulmonary hygiene per RT - Avoid benzodiazepines, reduce the possibility of delirium - prn analgesia per CPOT score - Maintenance of sleep-wake cycle, avoid delirium - Antibiotics per ID- on Unasyn for E.faecalis UTI, complete course - VTE prophylaxis-Heparin -Stress ulcer prophylaxis while he is on steroids -Mobility protocol, off loading and skin assessment for pressure ulcer prevention -Continue other care per attending / other consultants .... Re-evaluate in am & prn Subjective Date of service: 03/06/20 Principal diagnosis: Ac hypoxemic resp failure; R lung PNA; COVID-19 infection; UTI; AMS Interval history: Patient is seen today for: acute hypoxic respiratory failure; COVID infection; multifocal pneumonia; acute toxic-metabolic encephalopathy Seen and examined at bedside; 24hour events reviewed; nursing and respiratory care staff consulted; no adverse overnight events reported to me; No diarrhea, no vomiting. No fevers. eating well, but remains minimally interactive On 20L 30%, improving Objective Vital Signs - 12hr 03/05/20 03/05/20 03/05/20 20:52 22:00 22:56 Temperature 99.1 F Pulse Rate 67 Respiratory 20 Rate Blood Pressure 114/68 O2 Sat by Pulse 91 92 95 Oximetry 03/06/20 03/06/20 01:50 04:57 Temperature 99.5 F Pulse Rate 80 Respiratory 24 Rate Blood Pressure 120/63 O2 Sat by Pulse 96 92 Oximetry Constitutional: lethargic, other (Obese man, atraumatic, normocephalic) Eyes: non-icteric, other (PERRL) ENT: oropharynx moist Neck: supple, no JVD, other (large neck circumfernece, grunting respirations intermittentl;y) Effort: mildly labored Ascultation: Bilateral: diminished breath sounds, rhonchi Percussion: Bilateral: not dull Cardiovascular: regular rate and rhythm, other (S1,S2) Gastrointestinal: normoactive bowel sounds, soft, non-tender, non-distended Integumentary: rash Extremities: no cyanosis, no edema, pink and warm, pulses normal Neurologic: non-focal exam (grossly, will move extemities), pupils equal and round, other (not obeying commands for me; ? schizoid) Psychiatric: other (unable to assess secondary to mental status) CBC and BMP: 03/04/20 00:05 03/04/20 00:05 ABG, PT/INR, D-dimer: ABG ABG pH 7.439 pH Units (7.350-7.450) 03/02/20 15:41 ABG pCO2 34.8 mm Hg 03/02/20 15:41 ABG pO2 85.4 mm Hg (80.0-90.0) 03/02/20 15:41 ABG O2 Saturation 96.8 % (95.0-99.0) 03/02/20 15:41 PT/INR, D-dimer PT 14.2 Sec. (12.2-14.9) 02/26/20 03:57 INR 1.09 (0.87-1.13) 02/26/20 03:57 D-Dimer 1211.40 ng/mlDDU (0-234) H 02/28/20 Unknown Abnormal lab findings: Abnormal Labs 02/25/20 02/25/20 02/25/20 07:45 20:16 20:16 Hgb 11.7 L Hct 35.3 L MCV 83 L MCH 27 L RDW 17.2 H Lymph % (Auto) 8.0 L [place] % (Auto) 8.5 H Lymph # 0.5 L Seg Neutrophils % 83.4 H Seg Neuts % (Manual) Lymphocytes % (Manual) Lymphocytes # (Manual) D-Dimer ABG pO2 ABG Hemoglobin Oxyhemoglobin Sodium 135 L Carbon Dioxide 21 L BUN 22 H Glucose 176 H POC Glucose Calcium 8.0 L AST Alkaline Phosphatase 33 L Lactate Dehydrogenase Total Creatine Kinase 1034 H C-Reactive Protein Total Protein 5.9 L Albumin 3.5 L Urine WBC (Auto) Salicylates Acetaminophen Valproic Acid Coronavirus (PCR) Positive A 02/25/20 02/25/20 02/25/20 20:16 20:16 21:12 Hgb Hct MCV MCH RDW Lymph % (Auto) [place] % (Auto) Lymph # Seg Neutrophils % Seg Neuts % (Manual) Lymphocytes % (Manual) Lymphocytes # (Manual) D-Dimer ABG pO2 ABG Hemoglobin Oxyhemoglobin Sodium Carbon Dioxide BUN Glucose POC Glucose Calcium AST Alkaline Phosphatase Lactate Dehydrogenase Total Creatine Kinase C-Reactive Protein Total Protein Albumin Urine WBC (Auto) 24.0 H Salicylates < 0.3 L Acetaminophen < 5.0 L Valproic Acid Coronavirus (PCR) 02/25/20 02/25/20 02/26/20 23:03 23:03 03:57 Hgb 10.9 L Hct 32.8 L MCV 83 L MCH RDW 17.6 H Lymph % (Auto) 10.3 L [place] % (Auto) Lymph # 0.6 L Seg Neutrophils % 83.7 H Seg Neuts % (Manual) Lymphocytes % (Manual) Lymphocytes # (Manual) D-Dimer 1216.06 H ABG pO2 ABG Hemoglobin Oxyhemoglobin Sodium Carbon Dioxide BUN Glucose 144 H POC Glucose Calcium AST Alkaline Phosphatase Lactate Dehydrogenase 308 H Total Creatine Kinase C-Reactive Protein 5.50 H Total Protein Albumin Urine WBC (Auto) Salicylates Acetaminophen Valproic Acid Coronavirus (PCR) 02/26/20 02/27/20 02/28/20 03:57 12:01 09:30 Hgb Hct MCV MCH RDW Lymph % (Auto) [place] % (Auto) Lymph # Seg Neutrophils % Seg Neuts % (Manual) Lymphocytes % (Manual) Lymphocytes # (Manual) D-Dimer ABG pO2 ABG Hemoglobin Oxyhemoglobin Sodium Carbon Dioxide 20 L BUN Glucose 194 H 162 H POC Glucose 128 H Calcium 8.0 L AST Alkaline Phosphatase Lactate Dehydrogenase 399 H Total Creatine Kinase C-Reactive Protein 13.30 H Total Protein Albumin Urine WBC (Auto) Salicylates Acetaminophen Valproic Acid Coronavirus (PCR) 02/28/20 02/28/20 02/29/20 11:36 Unknown 15:30 Hgb 11.2 L Hct 34.0 L MCV 83 L MCH 27 L RDW 17.8 H Lymph % (Auto) 6.4 L [place] % (Auto) Lymph # 0.3 L Seg Neutrophils % 88.1 H Seg Neuts % (Manual) Lymphocytes % (Manual) Lymphocytes # (Manual) D-Dimer 1211.40 H ABG pO2 ABG Hemoglobin Oxyhemoglobin Sodium Carbon Dioxide BUN Glucose POC Glucose 156 H Calcium AST Alkaline Phosphatase Lactate Dehydrogenase Total Creatine Kinase C-Reactive Protein Total Protein Albumin Urine WBC (Auto) Salicylates Acetaminophen Valproic Acid Coronavirus (PCR) 02/29/20 02/29/20 02/29/20 15:30 17:50 18:30 Hgb Hct MCV MCH RDW Lymph % (Auto) [place] % (Auto) Lymph # Seg Neutrophils % Seg Neuts % (Manual) Lymphocytes % (Manual) Lymphocytes # (Manual) D-Dimer ABG pO2 73.6 L ABG Hemoglobin 11.3 L Oxyhemoglobin 93.9 L Sodium Carbon Dioxide BUN Glucose 142 H POC Glucose 160 H Calcium 7.8 L AST 58 H Alkaline Phosphatase 30 L Lactate Dehydrogenase Total Creatine Kinase C-Reactive Protein Total Protein 6.1 L Albumin 3.0 L Urine WBC (Auto) Salicylates Acetaminophen Valproic Acid Coronavirus (PCR) 03/01/20 03/02/20 03/02/20 12:46 01:20 01:20 Hgb 11.1 L Hct 33.3 L MCV 82 L MCH 27 L RDW 16.8 H Lymph % (Auto) [place] % (Auto) Lymph # Seg Neutrophils % Seg Neuts % (Manual) 96.0 H Lymphocytes % (Manual) 3.0 L Lymphocytes # (Manual) 0.2 L D-Dimer ABG pO2 ABG Hemoglobin Oxyhemoglobin Sodium Carbon Dioxide BUN 30 H Glucose 274 H POC Glucose Calcium AST Alkaline Phosphatase Lactate Dehydrogenase Total Creatine Kinase C-Reactive Protein Total Protein Albumin Urine WBC (Auto) Salicylates Acetaminophen Valproic Acid 26.9 L Coronavirus (PCR) 03/02/20 03/04/20 03/04/20 15:41 00:05 00:05 Hgb 10.8 L Hct 33.0 L MCV 83 L MCH 27 L RDW 16.4 H Lymph % (Auto) 4.3 L [place] % (Auto) Lymph # 0.3 L Seg Neutrophils % 90.0 H Seg Neuts % (Manual) Lymphocytes % (Manual) Lymphocytes # (Manual) D-Dimer ABG pO2 ABG Hemoglobin 10.9 L Oxyhemoglobin Sodium Carbon Dioxide BUN 33 H Glucose 311 H POC Glucose Calcium AST Alkaline Phosphatase Lactate Dehydrogenase Total Creatine Kinase C-Reactive Protein Total Protein Albumin Urine WBC (Auto) Salicylates Acetaminophen Valproic Acid Coronavirus (PCR) 03/06/20 07:52 Hgb Hct MCV MCH RDW Lymph % (Auto) [place] % (Auto) Lymph # Seg Neutrophils % Seg Neuts % (Manual) Lymphocytes % (Manual) Lymphocytes # (Manual) D-Dimer ABG pO2 ABG Hemoglobin Oxyhemoglobin Sodium Carbon Dioxide BUN Glucose POC Glucose 139 H Calcium AST Alkaline Phosphatase Lactate Dehydrogenase Total Creatine Kinase C-Reactive Protein Total Protein Albumin Urine WBC (Auto) Salicylates Acetaminophen Valproic Acid Coronavirus (PCR) Allied health notes reviewed: nursing
--- NOTE | 2020-03-06 09:05 | XRay Report ---
CHEST 1 VIEW INDICATION / CLINICAL INFORMATION: worsening infiltrates, COVID infection. COMPARISON: 03/02/2020 FINDINGS: SUPPORT DEVICES: None. HEART / MEDIASTINUM: No significant abnormality. LUNGS / PLEURA: Patchy bilateral airspace disease No pneumothorax. ADDITIONAL FINDINGS: No significant additional findings. IMPRESSION: Patchy bilateral airspace disease has improved slightly since 03/02/2020. No other interval change. Signer Name: Aquiles Reddy MD FACR Signed: 03/06/2020 9:00 AM Workstation Name: [id number]
--- NOTE | 2020-03-06 09:08 | Progress Note ---
Assessment and Plan Assessment and plan: Sepsis. Etiology secondary to pneumonia and UTI. Follow-up blood and urine cultures. COVID-19 infection. PCR positive on 02/25/2020. Right upper lobe pneumonia. Continue to follow serial chest x-ray and antibiotics. ID consulted. Acute hypoxemic respiratory failure. Etiology secondary to above. Continue O2 to maintain sats greater than 92%. BiPAP as clinically indicated. UTI. Continue IV antibiotics and follow-up urine cultures. Toxic metabolic encephalopathy. Etiology secondary to above. Continue to treat underlying cause. Mastoiditis/left otitis media 02/27/2020. Continue COVID isolation precautions. Ceftriaxone and azithromycin IV per ID recommendations. MRI brain. Monitor inflammatory markers. D-dimer 1216, LDH 308, CRP 5.5 and ferritin 117. Patient currently with high flow nasal [id number] L/min FiO2 35%. Pulmonary consulted. 02/28/2020. Patient currently with HFNC--35 L/min with FiO2 35%. Follow-up repeat inflammatory markers today. Continue antibiotics of ceftriaxone and azithromycin. Follow-up MRI brain. 02/29/2020. Consider IV Solu-Medrol per pulmonary. Patient currently with HFNC--35 L/min with FiO2 35% satting 95%. Follow-up inflammatory markers. Check Echocardiogram. ID changed antibiotics from ceftriaxone/azithromycin to Unasyn to cover for the faecalis UTI. MRI brain when stable. 03/01/20 Patient with Covid-19 infection, acute respiratory failure and toxic metabolic encephalopathy. Fever yesterday. Still on high flow Oxygen. 03/02/20 Patient with Covid-19 infection, acute respiratory failure. patient still on Oxygen HFNC at 35 l/min with oxygen sat 92% 03/03/20 Patient with Covid-19 infection, acute respiratory failure. he still needs to be inpatient, He is still on Oxygen HFNC at 35 l/min. 03/04/20 Patient with Covid-19 infection, acute respiratory failure. he still needs to be inpatient, He is still on Oxygen HFNC , now at 30 l/min. 03/05/20 Patient with Covid-19 infection, acute respiratory failure. he still needs to be inpatient, He is still on Oxygen HFNC , still at 30 l/min. Will discuss with resp therapist to continue weaning off Oxygen. 03/06/20 Patient with Covid-19 infection, acute respiratory failure. He still needs to be inpatient, He is still on Oxygen HFNC , now down to 20 l/min. Will discuss with resp therapist to continue weaning off Oxygen. History Interval history: shortness of breath much improved Fever resolved Hospitalist Physical - Physical exam Narrative exam: GEN: Not in acute distress, obese, lying in bed, HEENT: Normocephalic, atraumatic, Neck: supple, No JVD Lungs: Clear to auscultation bilaterally, heart;S1 and S2 reg, no murmurs, rubs or gallop Abd:soft, non tender, non distended, normal bowel sounds, Ext: awake,alert,oriented X 3, no clubbing, Neuro: Awake,, No focal neurological signs - Constitutional Vitals: Temp Pulse Resp BP Pulse Ox 99.5 F 80 24 120/63 92 03/06/20 04:57 03/06/20 04:57 03/06/20 04:57 03/06/20 04:57 03/06/20 04:57 General appearance: Present: disheveled HEART Score - HEART Score Troponin: Troponin T < 0.010 ng/mL (0.00-0.029) 02/25/20 20:16 Results - Labs CBC & Chem 7: 03/04/20 00:05 03/04/20 00:05 Labs: Laboratory Last Values WBC 7.4 K/mm3 (4.5-11.0) 03/04/20 00:05 RBC 3.96 M/mm3 (3.65-5.03) 03/04/20 00:05 Hgb 10.8 gm/dl (11.8-15.2) L 03/04/20 00:05 Hct 33.0 % (35.5-45.6) L 03/04/20 00:05 MCV 83 fl (84-94) L 03/04/20 00:05 MCH 27 pg (28-32) L 03/04/20 00:05 MCHC 33 % (32-34) 03/04/20 00:05 RDW 16.4 % (13.2-15.2) H 03/04/20 00:05 Plt Count 312 K/mm3 (140-440) 03/04/20 00:05 Lymph % (Auto) 4.3 % (13.4-35.0) L 03/04/20 00:05 [place] % (Auto) 5.6 % (0.0-7.3) 03/04/20 00:05 Eos % (Auto) 0.0 % (0.0-4.3) 03/04/20 00:05 Baso % (Auto) 0.1 % (0.0-1.8) 03/04/20 00:05 Lymph # 0.3 K/mm3 (1.2-5.4) L 03/04/20 00:05 [place] # 0.4 K/mm3 (0.0-0.8) 03/04/20 00:05 Eos # 0.0 K/mm3 (0.0-0.4) 03/04/20 00:05 Baso # 0.0 K/mm3 (0.0-0.1) 03/04/20 00:05 Add Manual Diff Complete 03/02/20 01:20 Total Counted 100 03/02/20 01:20 Seg Neutrophils % 90.0 % (40.0-70.0) H 03/04/20 00:05 Seg Neuts % (Manual) 96.0 % (40.0-70.0) H 03/02/20 01:20 Band Neutrophils % 0 % 03/02/20 01:20 Lymphocytes % (Manual) 3.0 % (13.4-35.0) L 03/02/20 01:20 Reactive Lymphs % (Man) 0 % 03/02/20 01:20 Monocytes % (Manual) 1.0 % (0.0-7.3) 03/02/20 01:20 Eosinophils % (Manual) 0 % (0.0-4.3) 03/02/20 01:20 Basophils % (Manual) 0 % (0.0-1.8) 03/02/20 01:20 Metamyelocytes % 0 % 03/02/20 01:20 Myelocytes % 0 % 03/02/20 01:20 Promyelocytes % 0 % 03/02/20 01:20 Blast Cells % 0 % 03/02/20 01:20 Nucleated RBC % Not Reportable 03/02/20 01:20 Seg Neutrophils # 6.7 K/mm3 (1.8-7.7) 03/04/20 00:05 Seg Neutrophils # Man 6.6 K/mm3 (1.8-7.7) 03/02/20 01:20 Band Neutrophils # 0.0 K/mm3 03/02/20 01:20 Lymphocytes # (Manual) 0.2 K/mm3 (1.2-5.4) L 03/02/20 01:20 Abs React Lymphs (Man) 0.0 K/mm3 03/02/20 01:20 Monocytes # (Manual) 0.1 K/mm3 (0.0-0.8) 03/02/20 01:20 Eosinophils # (Manual) 0.0 K/mm3 (0.0-0.4) 03/02/20 01:20 Basophils # (Manual) 0.0 K/mm3 (0.0-0.1) 03/02/20 01:20 Metamyelocytes # 0.0 K/mm3 03/02/20 01:20 Myelocytes # 0.0 K/mm3 03/02/20 01:20 Promyelocytes # 0.0 K/mm3 03/02/20 01:20 Blast Cells # 0.0 K/mm3 03/02/20 01:20 WBC Morphology Not Reportable 03/02/20 01:20 Hypersegmented Neuts Not Reportable 03/02/20 01:20 Hyposegmented Neuts Not Reportable 03/02/20 01:20 Hypogranular Neuts Not Reportable 03/02/20 01:20 Smudge Cells Not Reportable 03/02/20 01:20 Toxic Granulation Not Reportable 03/02/20 01:20 Toxic Vacuolation Not Reportable 03/02/20 01:20 Dohle Bodies Not Reportable 03/02/20 01:20 Pelger-Huet Anomaly Not Reportable 03/02/20 01:20 Norma Rods Not Reportable 03/02/20 01:20 Platelet Estimate Consistent w auto 03/02/20 01:20 Clumped Platelets Not Reportable 03/02/20 01:20 Plt Clumps, EDTA Not Reportable 03/02/20 01:20 Large Platelets Not Reportable 03/02/20 01:20 Giant Platelets Not Reportable 03/02/20 01:20 Platelet Satelliting Not Reportable 03/02/20 01:20 Plt Morphology Comment Not Reportable 03/02/20 01:20 RBC Morphology Not Reportable 03/02/20 01:20 Dimorphic RBCs Not Reportable 03/02/20 01:20 Polychromasia Not Reportable 03/02/20 01:20 Hypochromasia Not Reportable 03/02/20 01:20 Poikilocytosis Not Reportable 03/02/20 01:20 Anisocytosis Not Reportable 03/02/20 01:20 Microcytosis Not Reportable 03/02/20 01:20 Macrocytosis Not Reportable 03/02/20 01:20 Spherocytes Not Reportable 03/02/20 01:20 Pappenheimer Bodies Not Reportable 03/02/20 01:20 Sickle Cells Not Reportable 03/02/20 01:20 Target Cells Not Reportable 03/02/20 01:20 Tear Drop Cells Rare 03/02/20 01:20 Ovalocytes Not Reportable 03/02/20 01:20 Helmet Cells Not Reportable 03/02/20 01:20 [place] Bodies Not Reportable 03/02/20 01:20 [place] Rings Not Reportable 03/02/20 01:20 [place] Cells Not Reportable 03/02/20 01:20 Bite Cells Not Reportable 03/02/20 01:20 Crenated Cell Not Reportable 03/02/20 01:20 Elliptocytes Rare 03/02/20 01:20 Acanthocytes (Spur) Not Reportable 03/02/20 01:20 Rouleaux Not Reportable 03/02/20 01:20 Hemoglobin C Crystals Not Reportable 03/02/20 01:20 Schistocytes Not Reportable 03/02/20 01:20 Malaria parasites Not Reportable 03/02/20 01:20 Roddy Bodies Not Reportable 03/02/20 01:20 Hem Pathologist Commnt No 03/02/20 01:20 PT 14.2 Sec. (12.2-14.9) 02/26/20 03:57 INR 1.09 (0.87-1.13) 02/26/20 03:57 D-Dimer 1211.40 ng/mlDDU (0-234) H 02/28/20 Unknown ABG pH 7.439 pH Units (7.350-7.450) 03/02/20 15:41 ABG pCO2 34.8 mm Hg 03/02/20 15:41 ABG pO2 85.4 mm Hg (80.0-90.0) 03/02/20 15:41 ABG HCO3 23.1 mmol/L (20.0-26.0) 03/02/20 15:41 ABG O2 Saturation 96.8 % (95.0-99.0) 03/02/20 15:41 ABG O2 Content 14.7 (0.0-44) 03/02/20 15:41 ABG Base Excess -0.7 mmol/L (-2.0-3.0) 03/02/20 15: ABG Hemoglobin 10.9 gm/dl (14.0-18.0) L 03/02/20 15: ABG Carboxyhemoglobin 1.1 % (0.0-5.0) 03/02/20: ABG Methemoglobin 0.4 % (0.0-1.5) 03/02/20 15: Oxyhemoglobin 95.4 % (95.0-99.0) 03/02/20 15: FiO2 40 % 03/02/20 15:41 Sodium 145 mmol/L (137-145) 03/04/20 00:05 Potassium 4.0 mmol/L (3.6-5.0) 03/04/20 00:05 Chloride 104.4 mmol/L (98-107) 03/04/20 00:05 Carbon Dioxide 25 mmol/L (22-30) 03/04/20 00:05 Anion Gap 20 mmol/L 03/04/20 00:05 BUN 33 mg/dL (9-20) H 03/04/20 00:05 Creatinine 1.0 mg/dL (0.8-1.5) 03/04/20 00:05 Estimated GFR > 60 ml/min 03/04/20 00:05 BUN/Creatinine Ratio 33 % 03/04/20 00:05 Glucose 311 mg/dL (75-100) H 03/04/20 00:05 POC Glucose 139 (70-105) H 03/06/20 07:52 Hemoglobin A1c 6.2 % (4-6) H 03/06/20 07:15 Lactic Acid 1.60 mmol/L (0.7-2.0) 02/25/20 20:16 Calcium 8.4 mg/dL (8.4-10.2) 03/04/20 00:05 Ferritin 210.1 ng/mL (13.0-400.0) 02/28/20 15:39 Total Bilirubin 0.50 mg/dL (0.1-1.2) 02/29/20 15:30 AST 58 units/L (5-40) H 02/29/20 15:30 ALT 49 units/L (7-56) 02/29/20 15:30 Alkaline Phosphatase 30 units/L (35-129) L 02/29/20 15:30 Ammonia 42.0 umol/L (25-60) 02/25/20 20:16 Lactate Dehydrogenase 399 units/L (91-180) H 02/28/20 09:30 Total Creatine Kinase 1034 units/L (55-170) H 02/25/20 20:16 Troponin T < 0.010 ng/mL (0.00-0.029) 02/25/20 20:16 C-Reactive Protein 13.30 mg/dL (0.00-1.30) H 02/28/20 09:30 Total Protein 6.1 g/dL (6.3-8.2) L 02/29/20 15:30 Albumin 3.0 g/dL (3.9-5) L 02/29/20 15:30 Albumin/Globulin Ratio 1.0 % 02/29/20 15:30 Procalcitonin 0.22 ng/mL (<0.15) 02/29/20 04:56 TSH 1.370 mlU/mL (0.270-4.200) 03/01/20 09:57 Free T4 0.85 ng/dL (0.76-1.46) 03/01/20 09:57 Urine Color Yellow (Yellow) 02/25/20 21:12 Urine Turbidity Clear (Clear) 02/25/20 21:12 Urine pH 6.0 (5.0-7.0) 02/25/20 21:12 Ur Specific [place] 1.023 (1.003-1.030) 02/25/20 21:12 Urine Protein 100 mg/dl mg/dL (Negative) 02/25/20 21:12 Urine Glucose (UA) 50 mg/dL (Negative) 02/25/20 21:12 Urine Ketones Neg mg/dL (Negative) 02/25/20 21:12 Urine Blood Lg (Negative) 02/25/20 21:12 Urine Nitrite Neg (Negative) 02/25/20 21:12 Urine Bilirubin Neg (Negative) 02/25/20 21:12 Urine Urobilinogen 4.0 mg/dL (<2.0) 02/25/20 21:12 Ur Leukocyte Esterase Tr (Negative) 02/25/20 21:12 Urine WBC (Auto) 24.0 /HPF (0.0-6.0) H 02/25/20 21:12 Urine RBC (Auto) 2.0 /HPF (0.0-6.0) 02/25/20 21:12 Urine Mucus Few /HPF 02/25/20 21:12 Urine Yeast (Budding) Few /HPF 02/25/20 21:12 Salicylates < 0.3 mg/dL (2.8-20.0) L 02/25/20 20:16 Urine Opiates Screen Presumptive negative 02/25/20 Unknown Urine Methadone Screen Presumptive negative 02/25/20 Unknown Acetaminophen < 5.0 ug/mL (10.0-30.0) L 02/25/20 20:16 Ur Barbiturates Screen Presumptive negative 02/25/20 Unknown Valproic Acid 26.9 ug/mL (50-100) L 03/01/20 12:46 Ur Phencyclidine Scrn Presumptive negative 02/25/20 Unknown Ur Amphetamines Screen Presumptive negative 02/25/20 Unknown U Benzodiazepines Scrn Presumptive negative 02/25/20 Unknown Urine Cocaine Screen Presumptive negative 02/25/20 Unknown U Marijuana (THC) Screen Presumptive negative 02/25/20 Unknown Drugs of Abuse Note Disclamer 02/25/20 Unknown Plasma/Serum Alcohol < 0.01 % (0-0.07) 02/25/20 20:16 Coronavirus (PCR) Positive (Negative) A 02/25/20 07:45 Microbiology: Microbiology 02/29/20 08:47 Peripheral/Venous Blood Culture - Final NO GROWTH AFTER 5 DAYS 02/29/20 07:54 Peripheral/Venous Blood Culture - Final NO GROWTH AFTER 5 DAYS Velasquez/IV: Voiding Method Condom Catheter IV Catheter Type [left ac] Peripheral IV IV Catheter Type [Left Hand] Peripheral IV Active Medications - Current Medications Current Medications: Generic Name Dose Route Start Last Admin Trade Name Freq PRN Reason Stop Dose Admin Acetaminophen 650 mg 02/25/20 23:51 03/05/20 18:26 Tylenol PO 650 mg Q4H PRN Administration Pain MILD(1-3)/Fever >100.5/RAMOS Albuterol 2.5 mg 02/26/20 02:29 Proventil IH Q4HRT PRN Shortness Of Breath Ascorbic Acid 500 mg 02/28/20 15:00 03/05/20 21:00 Vitamin C PO 500 mg BID SABA Administration Haloperidol Lactate 5 mg 03/03/20 21:18 03/03/20 21:57 Haldol IM 5 mg Q6H PRN Administration Agitation Heparin Sodium (Porcine) 5,000 unit 02/26/20 14:00 03/06/20 05:10 Heparin SUB-Q 5,000 unit Q8HR SABA Administration Insulin Human Isoph/Insulin Regular 6 unit 03/06/20 08:00 Humulin 70/30 SUB-Q BIDDIAB SABA Magnesium Hydroxide 30 ml 02/25/20 23:51 03/03/20 18:13 Milk Of Magnesia PO 30 ml Q4H PRN Administration Constipation Metoprolol Tartrate 25 mg 02/29/20 14:00 03/05/20 21:04 Metoprolol PO Not Given TID SABA Ondansetron HCl 4 mg 02/25/20 23:51 Zofran IV Q8H PRN Nausea And Vomiting Paliperidone 12 mg 02/27/20 16:00 03/05/20 11:35 Invega PO 12 mg QDAY SABA Administration Pantoprazole Sodium 20 mg 02/26/20 10:00 03/05/20 21:00 Protonix PO 20 mg BID SABA Administration Polyethylene Glycol 17 gm 03/03/20 21:18 Miralax 3350 PO QDAY PRN Constipation Sodium Chloride 10 ml 02/26/20 10:00 03/05/20 21:04 Sodium Chloride Flush Syringe 10 Ml IV 10 ml BID SABA Administration Sodium Chloride 10 ml 02/25/20 23:51 Sodium Chloride Flush Syringe 10 Ml IV PRN PRN LINE FLUSH Valproic Acid 250 mg 03/01/20 15:00 03/05/20 20:59 Depakene Liq PO 250 mg BID SABA Administration Zinc Sulfate 220 mg 02/28/20 15:00 03/05/20 21:00 Zinc Sulfate PO 220 mg BID SABA Administration Nutrition/Malnutrition Assess - Dietary Evaluation Nutrition/Malnutrition Findings: Nutrition Notes Start: 05/15/20 12:55 Freq: Status: Active Protocol: Document 03/04/20 08:35 LP (Rec: 03/04/20 08:39 LP [id number]) Nutrition Notes Initial or Follow up Reassessment Other Pertinent Diagnosis COVID-19, pneu, UTI, AMS, asthma, schizophrenia Current Diet Mechanical soft diet Labs/Tests Reviewed Pertinent Medications Reviewed Height 5 ft 8 in Weight 101.7 kg [place] Body Weight (kg) 70.00 BMI 34.0 Weight Status Obese Subjective/Other Information LEADLIGHTER recommends mech soft diet with ground meat. Pt noted with consuming 83% of meals. Percent of energy/protein needs met: 97%/81% Burn Absent Trauma Absent Current % PO Good (75-100%) Minimum of two criteria Yes Fluid Accumulation Mild (non-severe) Reduced Ticketing Agent Strength Measurably Reduced (severe) #1 Nutrition Diagnosis Malnutrition Diagnosis Progress(for reassessment Continues documentation) Is patient on ventilator? No Is Patient Ambulatory and/or Out of Bed No REE-([facility]-confined to bed) 2125.008 Kcal/Kg value to use for calculation 18 Approximate Energy Requirements Using 1831 kcal/Kg Calculation Used for Recommendations Kcal/kg Additional Notes Protein: 103-129g (1.2-1.5g/kg using AdjBW 86kg) Fluid: 1ml/kcal Nutrition Intervention Change Diet Order: Mechanical soft consistent CHO with ground meat Goal #1 Meet at least 75% of energy and protein needs Anticipated Discharge Needs: regular/mech soft Follow-Up By: 03/10/20 Additional Comments Follow for stable intakes
[2020-03-06] MEDS: VALPROIC ACID 250 MG/5 ML ORAL LIQD PO SCH ×2 (09:45→21:57)
[2020-03-06] MEDS: PALIPERIDONE ER 3 MG TAB PO SCH (09:46)
[2020-03-06] MEDS: PANTOPRAZOLE 20 MG TAB PO SCH ×2 (09:46→21:57)
[2020-03-06] MEDS: ASCORBIC ACID 500 MG TAB PO SCH ×2 (09:47→21:57)
[2020-03-06] MEDS: ZINC SULFATE 220 MG CAP PO SCH ×2 (09:47→21:57)
[2020-03-06] MEDS: METOPROLOL TARTRATE 25 MG TAB PO SCH ×3 (09:48→21:57)
[2020-03-06] MEDS: ACETAMINOPHEN 325 MG TAB PO PRN (11:23)
[2020-03-06] MEDS: INSULIN NPH/REGULAR 70/30 INJ SUB-Q SCH ×2 (12:15→16:59)
[2020-03-07] MEDS: HEPARIN 5,000 UNIT/1 ML VIAL SUB-Q SCH ×2 (05:05→13:45)
[2020-03-07] MEDS: INSULIN NPH/REGULAR 70/30 INJ SUB-Q SCH (08:43)
[2020-03-07] MEDS: METOPROLOL TARTRATE 25 MG TAB PO SCH ×2 (08:51→13:46)
--- NOTE | 2020-03-07 09:04 | Progress Note ---
Assessment and Plan Assessment and plan: Sepsis. Etiology secondary to pneumonia and UTI. Follow-up blood and urine cultures. COVID-19 infection. PCR positive on 02/25/2020. Right upper lobe pneumonia. Continue to follow serial chest x-ray and antibiotics. ID consulted. Acute hypoxemic respiratory failure. Etiology secondary to above. Continue O2 to maintain sats greater than 92%. BiPAP as clinically indicated. UTI. Continue IV antibiotics and follow-up urine cultures. Toxic metabolic encephalopathy. Etiology secondary to above. Continue to treat underlying cause. Mastoiditis/left otitis media 02/27/2020. Continue COVID isolation precautions. Ceftriaxone and azithromycin IV per ID recommendations. MRI brain. Monitor inflammatory markers. D-dimer 1216, LDH 308, CRP 5.5 and ferritin 117. Patient currently with high flow nasal [id number] L/min FiO2 35%. Pulmonary consulted. 02/28/2020. Patient currently with HFNC--35 L/min with FiO2 35%. Follow-up repeat inflammatory markers today. Continue antibiotics of ceftriaxone and azithromycin. Follow-up MRI brain. 02/29/2020. Consider IV Solu-Medrol per pulmonary. Patient currently with HFNC--35 L/min with FiO2 35% satting 95%. Follow-up inflammatory markers. Check Echocardiogram. ID changed antibiotics from ceftriaxone/azithromycin to Unasyn to cover for the faecalis UTI. MRI brain when stable. 03/01/20 Patient with Covid-19 infection, acute respiratory failure and toxic metabolic encephalopathy. Fever yesterday. Still on high flow Oxygen. 03/02/20 Patient with Covid-19 infection, acute respiratory failure. patient still on Oxygen HFNC at 35 l/min with oxygen sat 92% 03/03/20 Patient with Covid-19 infection, acute respiratory failure. he still needs to be inpatient, He is still on Oxygen HFNC at 35 l/min. 03/04/20 Patient with Covid-19 infection, acute respiratory failure. he still needs to be inpatient, He is still on Oxygen HFNC , now at 30 l/min. 03/05/20 Patient with Covid-19 infection, acute respiratory failure. he still needs to be inpatient, He is still on Oxygen HFNC , still at 30 l/min. Will discuss with resp therapist to continue weaning off Oxygen. 03/06/20 Patient with Covid-19 infection, acute respiratory failure. He still needs to be inpatient, He is still on Oxygen HFNC , now down to 20 l/min. Will discuss with resp therapist to continue weaning off Oxygen. 03/07/20 History Interval history: shortness of breath much improved Fever resolved Hospitalist Physical - Physical exam Narrative exam: GEN: Not in acute distress, obese, lying in bed, On oxygen by NC HEENT: Normocephalic, atraumatic, Neck: supple, No JVD Lungs: Clear to auscultation bilaterally, heart;S1 and S2 reg, no murmurs, rubs or gallop Abd:soft, non tender, non distended, normal bowel sounds, Ext: awake,alert,oriented X 3, no clubbing, Neuro: Awake,, No focal neurological signs - Constitutional Vitals: Temp Pulse Resp BP Pulse Ox 99.5 F 99 H 16 120/78 95 03/07/20 05:18 03/07/20 08:51 03/07/20 05:18 03/07/20 05:18 03/07/20 08:00 General appearance: Present: disheveled HEART Score - HEART Score Troponin: Troponin T < 0.010 ng/mL (0.00-0.029) 02/25/20 20:16 Results - Labs CBC & Chem 7: 03/04/20 00:05 03/04/20 00:05 Labs: Laboratory Last Values WBC 7.4 K/mm3 (4.5-11.0) 03/04/20 00:05 RBC 3.96 M/mm3 (3.65-5.03) 03/04/20 00:05 Hgb 10.8 gm/dl (11.8-15.2) L 03/04/20 00:05 Hct 33.0 % (35.5-45.6) L 03/04/20 00:05 MCV 83 fl (84-94) L 03/04/20 00:05 MCH 27 pg (28-32) L 03/04/20 00:05 MCHC 33 % (32-34) 03/04/20 00:05 RDW 16.4 % (13.2-15.2) H 03/04/20 00:05 Plt Count 312 K/mm3 (140-440) 03/04/20 00:05 Lymph % (Auto) 4.3 % (13.4-35.0) L 03/04/20 00:05 [place] % (Auto) 5.6 % (0.0-7.3) 03/04/20 00:05 Eos % (Auto) 0.0 % (0.0-4.3) 03/04/20 00:05 Baso % (Auto) 0.1 % (0.0-1.8) 03/04/20 00:05 Lymph # 0.3 K/mm3 (1.2-5.4) L 03/04/20 00:05 [place] # 0.4 K/mm3 (0.0-0.8) 03/04/20 00:05 Eos # 0.0 K/mm3 (0.0-0.4) 03/04/20 00:05 Baso # 0.0 K/mm3 (0.0-0.1) 03/04/20 00:05 Add Manual Diff Complete 03/02/20 01:20 Total Counted 100 03/02/20 01:20 Seg Neutrophils % 90.0 % (40.0-70.0) H 03/04/20 00:05 Seg Neuts % (Manual) 96.0 % (40.0-70.0) H 03/02/20 01:20 Band Neutrophils % 0 % 03/02/20 01:20 Lymphocytes % (Manual) 3.0 % (13.4-35.0) L 03/02/20 01:20 Reactive Lymphs % (Man) 0 % 03/02/20 01:20 Monocytes % (Manual) 1.0 % (0.0-7.3) 03/02/20 01:20 Eosinophils % (Manual) 0 % (0.0-4.3) 03/02/20 01:20 Basophils % (Manual) 0 % (0.0-1.8) 03/02/20 01:20 Metamyelocytes % 0 % 03/02/20 01:20 Myelocytes % 0 % 03/02/20 01:20 Promyelocytes % 0 % 03/02/20 01:20 Blast Cells % 0 % 03/02/20 01:20 Nucleated RBC % Not Reportable 03/02/20 01:20 Seg Neutrophils # 6.7 K/mm3 (1.8-7.7) 03/04/20 00:05 Seg Neutrophils # Man 6.6 K/mm3 (1.8-7.7) 03/02/20 01:20 Band Neutrophils # 0.0 K/mm3 03/02/20 01:20 Lymphocytes # (Manual) 0.2 K/mm3 (1.2-5.4) L 03/02/20 01:20 Abs React Lymphs (Man) 0.0 K/mm3 03/02/20 01:20 Monocytes # (Manual) 0.1 K/mm3 (0.0-0.8) 03/02/20 01:20 Eosinophils # (Manual) 0.0 K/mm3 (0.0-0.4) 03/02/20 01:20 Basophils # (Manual) 0.0 K/mm3 (0.0-0.1) 03/02/20 01:20 Metamyelocytes # 0.0 K/mm3 03/02/20 01:20 Myelocytes # 0.0 K/mm3 03/02/20 01:20 Promyelocytes # 0.0 K/mm3 03/02/20 01:20 Blast Cells # 0.0 K/mm3 03/02/20 01:20 WBC Morphology Not Reportable 03/02/20 01:20 Hypersegmented Neuts Not Reportable 03/02/20 01:20 Hyposegmented Neuts Not Reportable 03/02/20 01:20 Hypogranular Neuts Not Reportable 03/02/20 01:20 Smudge Cells Not Reportable 03/02/20 01:20 Toxic Granulation Not Reportable 03/02/20 01:20 Toxic Vacuolation Not Reportable 03/02/20 01:20 Dohle Bodies Not Reportable 03/02/20 01:20 Pelger-Huet Anomaly Not Reportable 03/02/20 01:20 Norma Rods Not Reportable 03/02/20 01:20 Platelet Estimate Consistent w auto 03/02/20 01:20 Clumped Platelets Not Reportable 03/02/20 01:20 Plt Clumps, EDTA Not Reportable 03/02/20 01:20 Large Platelets Not Reportable 03/02/20 01:20 Giant Platelets Not Reportable 03/02/20 01:20 Platelet Satelliting Not Reportable 03/02/20 01:20 Plt Morphology Comment Not Reportable 03/02/20 01:20 RBC Morphology Not Reportable 03/02/20 01:20 Dimorphic RBCs Not Reportable 03/02/20 01:20 Polychromasia Not Reportable 03/02/20 01:20 Hypochromasia Not Reportable 03/02/20 01:20 Poikilocytosis Not Reportable 03/02/20 01:20 Anisocytosis Not Reportable 03/02/20 01:20 Microcytosis Not Reportable 03/02/20 01:20 Macrocytosis Not Reportable 03/02/20 01:20 Spherocytes Not Reportable 03/02/20 01:20 Pappenheimer Bodies Not Reportable 03/02/20 01:20 Sickle Cells Not Reportable 03/02/20 01:20 Target Cells Not Reportable 03/02/20 01:20 Tear Drop Cells Rare 03/02/20 01:20 Ovalocytes Not Reportable 03/02/20 01:20 Helmet Cells Not Reportable 03/02/20 01:20 [place] Bodies Not Reportable 03/02/20 01:20 [place] Rings Not Reportable 03/02/20 01:20 [place] Cells Not Reportable 03/02/20 01:20 Bite Cells Not Reportable 03/02/20 01:20 Crenated Cell Not Reportable 03/02/20 01:20 Elliptocytes Rare 03/02/20 01:20 Acanthocytes (Spur) Not Reportable 03/02/20 01:20 Rouleaux Not Reportable 03/02/20 01:20 Hemoglobin C Crystals Not Reportable 03/02/20 01:20 Schistocytes Not Reportable 03/02/20 01:20 Malaria parasites Not Reportable 03/02/20 01:20 Roddy Bodies Not Reportable 03/02/20 01:20 Hem Pathologist Commnt No 03/02/20 01:20 PT 14.2 Sec. (12.2-14.9) 02/26/20 03:57 INR 1.09 (0.87-1.13) 02/26/20 03:57 D-Dimer 1211.40 ng/mlDDU (0-234) H 02/28/20 Unknown ABG pH 7.439 pH Units (7.350-7.450) 03/02/20 15:41 ABG pCO2 34.8 mm Hg 03/02/20 15:41 ABG pO2 85.4 mm Hg (80.0-90.0) 03/02/20 15:41 ABG HCO3 23.1 mmol/L (20.0-26.0) 03/02/20 15:41 ABG O2 Saturation 96.8 % (95.0-99.0) 03/02/20 15:41 ABG O2 Content 14.7 (0.0-44) 03/02/20 15:41 ABG Base Excess -0.7 mmol/L (-2.0-3.0) 03/02/20 15: ABG Hemoglobin 10.9 gm/dl (14.0-18.0) L 03/02/20 15:41 ABG Carboxyhemoglobin 1.1 % (0.0-5.0) 03/02/20 15: ABG Methemoglobin 0.4 % (0.0-1.5) 03/02/20 15: Oxyhemoglobin 95.4 % (95.0-99.0) 03/02/20 15: FiO2 40 % 03/02/20 15:41 Sodium 145 mmol/L (137-145) 03/04/20 00:05 Potassium 4.0 mmol/L (3.6-5.0) 03/04/20 00:05 Chloride 104.4 mmol/L (98-107) 03/04/20 00:05 Carbon Dioxide 25 mmol/L (22-30) 03/04/20 00:05 Anion Gap 20 mmol/L 03/04/20 00:05 BUN 33 mg/dL (9-20) H 03/04/20 00:05 Creatinine 1.0 mg/dL (0.8-1.5) 03/04/20 00:05 Estimated GFR > 60 ml/min 03/04/20 00:05 BUN/Creatinine Ratio 33 % 03/04/20 00:05 Glucose 311 mg/dL (75-100) H 03/04/20 00:05 POC Glucose 128 (70-105) H 03/07/20 08:40 Hemoglobin A1c 6.2 % (4-6) H 03/06/20 07:15 Lactic Acid 1.60 mmol/L (0.7-2.0) 02/25/20 20:16 Calcium 8.4 mg/dL (8.4-10.2) 03/04/20 00:05 Ferritin 210.1 ng/mL (13.0-400.0) 02/28/20 15:39 Total Bilirubin 0.50 mg/dL (0.1-1.2) 02/29/20 15:30 AST 58 units/L (5-40) H 02/29/20 15:30 ALT 49 units/L (7-56) 02/29/20 15:30 Alkaline Phosphatase 30 units/L (35-129) L 02/29/20 15:30 Ammonia 42.0 umol/L (25-60) 02/25/20 20:16 Lactate Dehydrogenase 399 units/L (91-180) H 02/28/20 09:30 Total Creatine Kinase 1034 units/L (55-170) H 02/25/20 20:16 Troponin T < 0.010 ng/mL (0.00-0.029) 02/25/20 20:16 C-Reactive Protein 13.30 mg/dL (0.00-1.30) H 02/28/20 09:30 Total Protein 6.1 g/dL (6.3-8.2) L 02/29/20 15:30 Albumin 3.0 g/dL (3.9-5) L 02/29/20 15:30 Albumin/Globulin Ratio 1.0 % 02/29/20 15:30 Procalcitonin 0.22 ng/mL (<0.15) 02/29/20 04:56 TSH 1.370 mlU/mL (0.270-4.200) 03/01/20 09:57 Free T4 0.85 ng/dL (0.76-1.46) 03/01/20 09:57 Urine Color Yellow (Yellow) 02/25/20 21:12 Urine Turbidity Clear (Clear) 02/25/20 21:12 Urine pH 6.0 (5.0-7.0) 02/25/20 21:12 Ur Specific [place] 1.023 (1.003-1.030) 02/25/20 21:12 Urine Protein 100 mg/dl mg/dL (Negative) 02/25/20 21:12 Urine Glucose (UA) 50 mg/dL (Negative) 02/25/20 21:12 Urine Ketones Neg mg/dL (Negative) 02/25/20 21:12 Urine Blood Lg (Negative) 02/25/20 21:12 Urine Nitrite Neg (Negative) 02/25/20 21:12 Urine Bilirubin Neg (Negative) 02/25/20 21:12 Urine Urobilinogen 4.0 mg/dL (<2.0) 02/25/20 21:12 Ur Leukocyte Esterase Tr (Negative) 02/25/20 21:12 Urine WBC (Auto) 24.0 /HPF (0.0-6.0) H 02/25/20 21:12 Urine RBC (Auto) 2.0 /HPF (0.0-6.0) 02/25/20 21:12 Urine Mucus Few /HPF 02/25/20 21:12 Urine Yeast (Budding) Few /HPF 02/25/20 21:12 Salicylates < 0.3 mg/dL (2.8-20.0) L 02/25/20 20:16 Urine Opiates Screen Presumptive negative 02/25/20 Unknown Urine Methadone Screen Presumptive negative 02/25/20 Unknown Acetaminophen < 5.0 ug/mL (10.0-30.0) L 02/25/20 20:16 Ur Barbiturates Screen Presumptive negative 02/25/20 Unknown Valproic Acid 26.9 ug/mL (50-100) L 03/01/20 12:46 Ur Phencyclidine Scrn Presumptive negative 02/25/20 Unknown Ur Amphetamines Screen Presumptive negative 02/25/20 Unknown U Benzodiazepines Scrn Presumptive negative 02/25/20 Unknown Urine Cocaine Screen Presumptive negative 02/25/20 Unknown U Marijuana (THC) Screen Presumptive negative 02/25/20 Unknown Drugs of Abuse Note Disclamer 02/25/20 Unknown Plasma/Serum Alcohol < 0.01 % (0-0.07) 02/25/20 20:16 Coronavirus (PCR) Positive (Negative) A 02/25/20 07:45 Velas[place]/IV: Voiding Method Condom Catheter IV Catheter Type [left ac] Peripheral IV IV Catheter Type [Left Hand] Peripheral IV Active Medications - Current Medications Current Medications: Generic Name Dose Route Start Last Admin Trade Name Freq PRN Reason Stop Dose Admin Acetaminophen 650 mg 02/25/20 23:51 03/06/20 11:23 Tylenol PO 650 mg Q4H PRN Administration Pain MILD(1-3)/Fever >100.5/RAMOS Albuterol 2.5 mg 02/26/20 02:29 Proventil IH Q4HRT PRN Shortness Of Breath Ascorbic Acid 500 mg 02/28/20 15:00 03/06/20 21:57 Vitamin C PO 500 mg BID SABA Administration Haloperidol Lactate 5 mg 03/03/20 21:18 03/03/20 21:57 Haldol IM 5 mg Q6H PRN Administration Agitation Heparin Sodium (Porcine) 5,000 unit 02/26/20 14:00 03/07/20 05:05 Heparin SUB-Q 5,000 unit Q8HR SABA Administration Insulin Human Isoph/Insulin Regular 6 unit 03/06/20 08:00 03/07/20 08:43 Humulin 70/30 SUB-Q Not Given BIDDIAB SABA Magnesium Hydroxide 30 ml 02/25/20 23:51 03/03/20 18:13 Milk Of Magnesia PO 30 ml Q4H PRN Administration Constipation Metoprolol Tartrate 25 mg 02/29/20 14:00 03/07/20 08:51 Metoprolol PO 25 mg TID SABA Administration Ondansetron HCl 4 mg 02/25/20 23:51 Zofran IV Q8H PRN Nausea And Vomiting Paliperidone 12 mg 02/27/20 16:00 03/06/20 09:46 Invega PO 12 mg QDAY SABA Administration Pantoprazole Sodium 20 mg 02/26/20 10:00 03/06/20 21:57 Protonix PO 20 mg BID SABA Administration Polyethylene Glycol 17 gm 03/03/20 21:18 Miralax 3350 PO QDAY PRN Constipation Sodium Chloride 10 ml 02/26/20 10:00 03/06/20 21:57 Sodium Chloride Flush Syringe 10 Ml IV 10 ml BID SABA Administration Sodium Chloride 10 ml 02/25/20 23:51 Sodium Chloride Flush Syringe 10 Ml IV PRN PRN LINE FLUSH Valproic Acid 250 mg 03/01/20 15:00 03/06/20 21:57 Depakene Liq PO 250 mg BID SABA Administration Zinc Sulfate 220 mg 02/28/20 15:00 03/06/20 21:57 Zinc Sulfate PO 220 mg BID SABA Administration Nutrition/Malnutrition Assess - Dietary Evaluation Nutrition/Malnutrition Findings: Nutrition Notes Start: 02/26/20 12:55 Freq: Status: Active Protocol: Document 03/04/20 08:35 LP (Rec: 03/04/20 08:39 [id number]) Nutrition Notes Initial or Follow up Reassessment Other Pertinent Diagnosis COVID-19, pneu, UTI, AMS, asthma, schizophrenia Current Diet Mechanical soft diet Labs/Tests Reviewed Pertinent Medications Reviewed Height 5 ft 8 in Weight 101.7 kg [place] Body Weight (kg) 70.00 BMI 34.0 Weight Status Obese Subjective/Other Information HUMAN PERFORMANCE CONSULTANT recommends [facility] soft diet with ground meat. Pt noted with consuming 83% of meals. Percent of energy/protein needs met: 97%/81% Burn Absent Trauma Absent Current % PO Good (75-100%) Minimum of two criteria Yes Fluid Accumulation Mild (non-severe) Reduced Consumer Lender Strength Measurably Reduced (severe) #1 Nutrition Diagnosis Malnutrition Diagnosis Progress(for reassessment Continues documentation) Is patient on ventilator? No Is Patient Ambulatory and/or Out of Bed No REE-([facility]-confined to bed) 2125.008 Kcal/Kg value to use for calculation 18 Approximate Energy Requirements Using 1831 kcal/Kg Calculation Used for Recommendations Kcal/kg Additional Notes Protein: 103-129g (1.2-1.5g/kg using AdjBW 86kg) Fluid: 1ml/kcal Nutrition Intervention Change Diet Order: Mechanical soft consistent CHO with ground meat Goal #1 Meet at least 75% of energy and protein needs Anticipated Discharge Needs: regular/mech soft Follow-Up By: 03/10/20 Additional Comments Follow for stable intakes
[2020-03-07] MEDS ORDERED: EPINEPHrine 1 MG/10 ML SYRINGE ONE (10:00)
[2020-03-07] MEDS ORDERED: DEXTROSE 50% IN WATER (25GM) 50 ML SYRINGE IV ONE (10:00)
[2020-03-07] MEDS: ZINC SULFATE 220 MG CAP PO SCH (10:04)
[2020-03-07] MEDS: PANTOPRAZOLE 20 MG TAB PO SCH (10:05)
[2020-03-07] MEDS: VALPROIC ACID 250 MG/5 ML ORAL LIQD PO SCH (10:05)
[2020-03-07] MEDS: ASCORBIC ACID 500 MG TAB PO SCH (10:05)
[2020-03-07] MEDS: PALIPERIDONE ER 3 MG TAB PO SCH (10:20)
--- NOTE | 2020-03-07 13:11 | Progress Note ---
Assessment and Plan Acute hypoxemic respiratory failure. Right lung pneumonia. COVID-19 infection. History of schizophrenia. Systemic inflammatory response syndrome. Anemia that is microcytic. Mild hyponatremia. Mild metabolic acidosis. Elevated serum creatinine kinase. Urinary tract infection. - continue airborne, droplet and contact isolation for COVID-19 - trend inflammatory markers per facility protocol - Vit C, Vitamin D - Continue steroids - Accuchecks with glycemic control per SSI (While critically ill target blood glucose of 140-180 mg/dL; avoid hypoglycemia) - Intermittent diuresis while monitoring renal function, hemodynamics and electrolyte profile- redose lasix in the morning - Follow up CXR continues to show worsening of infiltrates, plan on getting speech evaluation for dysphagia to r/o silent aspiration Reordered CXR for the morning - Continue to wean supplemental oxygen for target O2 sats > 92% - Awake proning as tolerated - Continue bronchodilators with pulmonary hygiene per RT - Avoid benzodiazepines, reduce the possibility of delirium - prn analgesia per CPOT score - Maintenance of sleep-wake cycle, avoid delirium - Antibiotics per ID- on Unasyn for E.faecalis UTI - VTE prophylaxis-Heparin - Stress ulcer prophylaxis while he is on steroids and high flow oxygen - Mobility protocol, off loading and skin assessment for pressure ulcer prevention -Continue other care per attending / other consultants .... Re-evaluate in am & prn Subjective Date of service: 03/07/20 Principal diagnosis: Ac hypoxemic resp failure; R lung PNA; COVID-19 infection; UTI; AMS Interval history: Patient is seen today for: Acute hypoxemic respiratory failure; Right lung pneumonia; COVID-19 infection; History of schizophrenia; UTI Seen and examined at bedside; 24hour events reviewed; nursing and respiratory care staff consulted; no adverse overnight events reported to me; resting peacefully in bed; Objective Vital Signs - 12hr 03/07/20 03/07/20 03/07/20 02:00 05:18 08:00 Temperature 99.5 F Pulse Rate 106 H Respiratory 16 Rate Blood Pressure 120/78 O2 Sat by Pulse 96 93 95 Oximetry 03/07/20 03/07/20 08:51 10:43 Temperature 98.1 F Pulse Rate 99 H 82 Respiratory 30 H Rate Blood Pressure 113/69 O2 Sat by Pulse 92 Oximetry Constitutional: lethargic, other (Obese man, atraumatic, normocephali c) Eyes: non-icteric, other (PERRL) ENT: oropharynx moist Neck: supple, no JVD, other (large neck circumfernece, grunting respirations intermittentl;y) Effort: mildly labored Ascultation: Bilateral: diminished breath sounds, rhonchi Percussion: Bilateral: not dull Cardiovascular: regular rate and rhythm, other (S1,S2) Gastrointestinal: normoactive bowel sounds, soft, non-tender, non-distended Integumentary: rash Extremities: no cyanosis, no edema, pink and warm, pulses normal Neurologic: non-focal exam (grossly, will move extemities), pupils equal and round, other (not obeying commands for me; ? schizoid) Psychiatric: other (unable to assess secondary to mental status) CBC and BMP: 03/04/20 00:05 03/04/20 00:05 ABG, PT/INR, D-dimer: ABG ABG pH 7.439 pH Units (7.350-7.450) 03/02/20 15:41 ABG pCO2 34.8 mm Hg 03/02/20 15:41 ABG pO2 85.4 mm Hg (80.0-90.0) 03/02/20 15:41 ABG O2 Saturation 96.8 % (95.0-99.0) 03/02/20 15:41 PT/INR, D-dimer PT 14.2 Sec. (12.2-14.9) 02/26/20 03:57 INR 1.09 (0.87-1.13) 02/26/20 03:57 D-Dimer 1211.40 ng/mlDDU (0-234) H 02/28/20 Unknown Abnormal lab findings: Abnormal Labs 02/25/20 02/25/20 02/25/20 07:45 20:16 20:16 Hgb 11.7 L Hct 35.3 L MCV 83 L MCH 27 L RDW 17.2 H Lymph % (Auto) 8.0 L [place] % (Auto) 8.5 H Lymph # 0.5 L Seg Neutrophils % 83.4 H Seg Neuts % (Manual) Lymphocytes % (Manual) Lymphocytes # (Manual) D-Dimer ABG pO2 ABG Hemoglobin Oxyhemoglobin Sodium 135 L Carbon Dioxide 21 L BUN 22 H Glucose 176 H POC Glucose Hemoglobin A1c Calcium 8.0 L AST Alkaline Phosphatase 33 L Lactate Dehydrogenase Total Creatine Kinase 1034 H C-Reactive Protein Total Protein 5.9 L Albumin 3.5 L Urine WBC (Auto) Salicylates Acetaminophen Valproic Acid Coronavirus (PCR) Positive A 02/25/20 02/25/20 02/25/20 20:16 20:16 21:12 Hgb Hct MCV MCH RDW Lymph % (Auto) [place] % (Auto) Lymph # Seg Neutrophils % Seg Neuts % (Manual) Lymphocytes % (Manual) Lymphocytes # (Manual) D-Dimer ABG pO2 ABG Hemoglobin Oxyhemoglobin Sodium Carbon Dioxide BUN Glucose POC Glucose Hemoglobin A1c Calcium AST Alkaline Phosphatase Lactate Dehydrogenase Total Creatine Kinase C-Reactive Protein Total Protein Albumin Urine WBC (Auto) 24.0 H Salicylates < 0.3 L Acetaminophen < 5.0 L Valproic Acid Coronavirus (PCR) 02/25/20 02/25/20 02/26/20 23:03 23:03 03:57 Hgb 10.9 L Hct 32.8 L MCV 83 L MCH RDW 17.6 H Lymph % (Auto) 10.3 L [place] % (Auto) Lymph # 0.6 L Seg Neutrophils % 83.7 H Seg Neuts % (Manual) Lymphocytes % (Manual) Lymphocytes # (Manual) D-Dimer 1216.06 H ABG pO2 ABG Hemoglobin Oxyhemoglobin Sodium Carbon Dioxide BUN Glucose 144 H POC Glucose Hemoglobin A1c Calcium AST Alkaline Phosphatase Lactate Dehydrogenase 308 H Total Creatine Kinase C-Reactive Protein 5.50 H Total Protein Albumin Urine WBC (Auto) Salicylates Acetaminophen Valproic Acid Coronavirus (PCR) 02/26/20 02/27/20 02/28/20 03:57 12:01 09:30 Hgb Hct MCV MCH RDW Lymph % (Auto) [place] % (Auto) Lymph # Seg Neutrophils % Seg Neuts % (Manual) Lymphocytes % (Manual) Lymphocytes # (Manual) D-Dimer ABG pO2 ABG Hemoglobin Oxyhemoglobin Sodium Carbon Dioxide 20 L BUN Glucose 194 H 162 H POC Glucose 128 H Hemoglobin A1c Calcium 8.0 L AST Alkaline Phosphatase Lactate Dehydrogenase 399 H Total Creatine Kinase C-Reactive Protein 13.30 H Total Protein Albumin Urine WBC (Auto) Salicylates Acetaminophen Valproic Acid Coronavirus (PCR) 02/28/20 02/28/20 02/29/20 11:36 Unknown 15:30 Hgb 11.2 L Hct 34.0 L MCV 83 L MCH 27 L RDW 17.8 H Lymph % (Auto) 6.4 L [place] % (Auto) Lymph # 0.3 L Seg Neutrophils % 88.1 H Seg Neuts % (Manual) Lymphocytes % (Manual) Lymphocytes # (Manual) D-Dimer 1211.40 H ABG pO2 ABG Hemoglobin Oxyhemoglobin Sodium Carbon Dioxide BUN Glucose POC Glucose 156 H Hemoglobin A1c Calcium AST Alkaline Phosphatase Lactate Dehydrogenase Total Creatine Kinase C-Reactive Protein Total Protein Albumin Urine WBC (Auto) Salicylates Acetaminophen Valproic Acid Coronavirus (PCR) 02/29/20 02/29/20 02/29/20 15:30 17:50 18:30 Hgb Hct MCV MCH RDW Lymph % (Auto) [place] % (Auto) Lymph # Seg Neutrophils % Seg Neuts % (Manual) Lymphocytes % (Manual) Lymphocytes # (Manual) D-Dimer ABG pO2 73.6 L ABG Hemoglobin 11.3 L Oxyhemoglobin 93.9 L Sodium Carbon Dioxide BUN Glucose 142 H POC Glucose 160 H Hemoglobin A1c Calcium 7.8 L AST 58 H Alkaline Phosphatase 30 L Lactate Dehydrogenase Total Creatine Kinase C-Reactive Protein Total Protein 6.1 L Albumin 3.0 L Urine WBC (Auto) Salicylates Acetaminophen Valproic Acid Coronavirus (PCR) 03/01/20 03/02/20 03/02/20 12:46 01:20 01:20 Hgb 11.1 L Hct 33.3 L MCV 82 L MCH 27 L RDW 16.8 H Lymph % (Auto) [place] % (Auto) Lymph # Seg Neutrophils % Seg Neuts % (Manual) 96.0 H Lymphocytes % (Manual) 3.0 L Lymphocytes # (Manual) 0.2 L D-Dimer ABG pO2 ABG Hemoglobin Oxyhemoglobin Sodium Carbon Dioxide BUN 30 H Glucose 274 H POC Glucose Hemoglobin A1c Calcium AST Alkaline Phosphatase Lactate Dehydrogenase Total Creatine Kinase C-Reactive Protein Total Protein Albumin Urine WBC (Auto) Salicylates Acetaminophen Valproic Acid 26.9 L Coronavirus (PCR) 03/02/20 03/04/20 03/04/20 15:41 00:05 00:05 Hgb 10.8 L Hct 33.0 L MCV 83 L MCH 27 L RDW 16.4 H Lymph % (Auto) 4.3 L [place] % (Auto) Lymph # 0.3 L Seg Neutrophils % 90.0 H Seg Neuts % (Manual) Lymphocytes % (Manual) Lymphocytes # (Manual) D-Dimer ABG pO2 ABG Hemoglobin 10.9 L Oxyhemoglobin Sodium Carbon Dioxide BUN 33 H Glucose 311 H POC Glucose Hemoglobin A1c Calcium AST Alkaline Phosphatase Lactate Dehydrogenase Total Creatine Kinase C-Reactive Protein Total Protein Albumin Urine WBC (Auto) Salicylates Acetaminophen Valproic Acid Coronavirus (PCR) 03/06/20 03/06/20 03/06/20 07:15 07:52 11:19 Hgb Hct MCV MCH RDW Lymph % (Auto) [place] % (Auto) Lymph # Seg Neutrophils % Seg Neuts % (Manual) Lymphocytes % (Manual) Lymphocytes # (Manual) D-Dimer ABG pO2 ABG Hemoglobin Oxyhemoglobin Sodium Carbon Dioxide BUN Glucose POC Glucose 139 H 175 H Hemoglobin A1c 6.2 H Calcium AST Alkaline Phosphatase Lactate Dehydrogenase Total Creatine Kinase C-Reactive Protein Total Protein Albumin Urine WBC (Auto) Salicylates Acetaminophen Valproic Acid Coronavirus (PCR) 03/06/20 03/06/20 03/07/20 16:21 20:53 08:40 Hgb Hct MCV MCH RDW Lymph % (Auto) [place] % (Auto) Lymph # Seg Neutrophils % Seg Neuts % (Manual) Lymphocytes % (Manual) Lymphocytes # (Manual) D-Dimer ABG pO2 ABG Hemoglobin Oxyhemoglobin Sodium Carbon Dioxide BUN Glucose POC Glucose 157 H 128 H 128 H Hemoglobin A1c Calcium AST Alkaline Phosphatase Lactate Dehydrogenase Total Creatine Kinase C-Reactive Protein Total Protein Albumin Urine WBC (Auto) Salicylates Acetaminophen Valproic Acid Coronavirus (PCR) 03/07/20 12:14 Hgb Hct MCV MCH RDW Lymph % (Auto) [place] % (Auto) Lymph # Seg Neutrophils % Seg Neuts % (Manual) Lymphocytes % (Manual) Lymphocytes # (Manual) D-Dimer ABG pO2 ABG Hemoglobin Oxyhemoglobin Sodium Carbon Dioxide BUN Glucose POC Glucose 116 H Hemoglobin A1c Calcium AST Alkaline Phosphatase Lactate Dehydrogenase Total Creatine Kinase C-Reactive Protein Total Protein Albumin Urine WBC (Auto) Salicylates Acetaminophen Valproic Acid Coronavirus (PCR) Allied health notes reviewed: nursing
[2020-03-07 13:53] VITALS: BP 115/65
--- NOTE | 2020-03-07 21:20 | Event Note ---
Date: 03/07/20 WING DUARTE was called at 6:10 PM which is 8 in 10 hours ACLS protocol was initiated Cardiac compressions were given patient was intubated and epinephrine and sodium bicarbonate were given 2 rounds each. Patient did not respond at all for the chest compressions and the ACLS medications patient was pronounced at 628 hours which is 1828 hrs. Pronouncing physician is Dr. Kelli SANTILLAN and certificate to be certified by Dr. Commander CLARISSA CRISTINA Cause of is cardiorespiratory failure secondary to bilateral pulmonary pneumonia and coronavirus infection.
[2020-03-08] MEDS ORDERED: LIDOCAINE VISCOUS 2% 15 ML ORAL LIQD ONE (14:12)
--- NOTE | 2020-03-13 14:21 | Death Summary ---
Summary - Providers Date of service: 03/07/20 Consults: 02/25/20 22:34 Consult to Physician [CONS] Routine Comment: Consulting Provider: ANNA NAVARRO Physician Instructions: Reason For Exam: pna. poss covid 02/27/20 11:46 Consult to Physician [CONS] Routine Comment: Consulting Provider: GITA RHODES Physician Instructions: Reason For Exam: hypoxia 02/27/20 18:37 Consult to Physician [CONS] Routine Comment: Consulting Provider: TY PUTNAM Physician Instructions: Reason For Exam: AFIB 03/03/20 08:03 Speech Therapy Evaluation and Treat [CONS] Routine Reason For Exam: dysphagia evaluation Attending: BIANKA URBINA - summary Date of admission: 02/25/20 22:37 Date of : 03/07/20 Procedures/treatments rendered: Patient 69-year-old male resident of [facility] brought into the emergency room for altered mental status. Staff of the [facility] [employer] [employer] was said to have called EMS because patient has had some changes in his mental status. Patient was said to have become less responsive over the past 2 days. He has significant past medical history of asthma schizophrenia and bipolar disorder. H e denied fever or chills, denies any cough or shortness of breath, no chest pain, denies any headache or dizziness and denies any recent fall. Work-up in the emergency room was however significant for pneumonia and UTI. he was started on empiric IV antibiotics and admitted. Covid-19 test was positive. he was evaluated by ID Physician and Health Sciences Manager. He was treated with Cefepime, ceftriaxone, azithromycin. He was on Oxygen by high flow NC. He was using less Oxygen and was down to Oxygen by NC at 4 l/min. However on evening of 03/07/20, he had sudden brasycardiahypotension,unresponsive. He had cardiopulmonary arrest , code blue run as per protocol. he however did not survive. He was pronounced on 03/07/20 at 18:28. Patient 03/07/20 on 18:28 after cardiopulmonary arrest, failed resuscitation Cardiopulmonary arrest. Sepsis. Etiology secondary to pneumonia and UTI. . COVID-19 infection. PCR positive on 02/25/2020. Right upper lobe pneumonia due to Covid-19. ID consulted,and was following. Acute hypoxemic respiratory failure. Etiology secondary to above. Continue O2 to maintain sats greater than 92%. BiPAP as clinically indicated. UTI. treated with iv Antibiotics Toxic metabolic encephalopathy. Mastoiditis/left otitis media 02/27/2020. Continue COVID isolation precautions. Ceftriaxone and azithromycin IV per ID recommendations. MRI brain. Monitor inflammatory markers. D-dimer 1216, LDH 308, CRP 5.5 and ferritin 117. Patient currently with high flow nasal [id number] L/min FiO2 35%. Pulmonary consulted. 02/28/2020. Patient currently with HFNC--35 L/min with FiO2 35%. Follow-up repeat inflammatory markers today. Continue antibiotics of ceftriaxone and azithromycin. Follow-up MRI brain. 02/29/2020. Consider IV Solu-Medrol per pulmonary. Patient currently with HFNC--35 L/min with FiO2 35% satting 95%. Follow-up inflammatory markers. Check Echocardiogram. ID changed antibiotics from ceftriaxone/azithromycin to Unasyn to cover for the faecalis UTI. MRI brain when stable. 03/01/20 Patient with Covid-19 infection, acute respiratory failure and toxic metabolic encephalopathy. Fever yesterday. Still on high flow Oxygen. 03/02/20 Patient with Covid-19 infection, acute respiratory failure. patient still on Oxygen HFNC at 35 l/min with oxygen sat 92% 03/03/20 Patient with Covid-19 infection, acute respiratory failure. he still needs to be inpatient, He is still on Oxygen HFNC at 35 l/min. 03/04/20 Patient with Covid-19 infection, acute respiratory failure. he still needs to be inpatient, He is still on Oxygen HFNC , now at 30 l/min. 03/05/20 Patient with Covid-19 infection, acute respiratory failure. he still needs to be inpatient, He is still on Oxygen HFNC , still at 30 l/min. Will discuss with resp therapist to continue weaning off Oxygen. 03/06/20 Patient with Covid-19 infection, acute respiratory failure. He still needs to be inpatient, He is still on Oxygen HFNC , now down to 20 l/min. Will discuss with resp therapist to continue weaning off Oxygen. Total time spent on discharge, 35 mins
== END 2020-03-07 22:45 | DRG 871 ==
LOC: ED 17:53 → IMCU 22:37
PROVIDERS: ADMIT Internal Medicine Geriatric Medicine; ATTEND Internal Medicine
PROC: 4A033R1 Measurement of Arterial Saturation, Peripheral, Percutaneous Approach (ICD-10-PCS; principal; 2020-02-29)
PROC: 0BH17EZ Insertion of Endotracheal Airway into Trachea, Via Natural or Artificial Opening (ICD-10-PCS; 2020-03-07)
PROC: 5A12012 Performance of Cardiac Output, Single, Manual (ICD-10-PCS; 2020-03-07)
DX: A41.89 Other specified sepsis (principal); U07.1 COVID-19; J12.89 Other viral pneumonia; J96.01 Acute respiratory failure with hypoxia; G92 Toxic encephalopathy; E87.1 Hypo-osmolality and hyponatremia; E87.2 Acidosis; N30.01 Acute cystitis with hematuria; F20.9 Schizophrenia, unspecified; D50.9 Iron deficiency anemia, unspecified; E86.0 Dehydration; H70.92 Unspecified mastoiditis, left ear; J45.909 Unspecified asthma, uncomplicated; I48.0 Paroxysmal atrial fibrillation; F99 Mental disorder, not otherwise specified; F17.200 Nicotine dependence, unspecified, uncomplicated; Z79.899 Other long term (current) drug therapy
CPT/HCPCS: 31500; 36415; 36600; 70450; 71045; 80048; 80053; 80164; 80307; 80320; 81001; 82140; 82550; 82728; 82803; 82947; 82962; 83036; 83615; 84145; 84439; 84443; 84484; 85007; 85025; 85379; 85610; 86140; 87040; 87076; 87086; 87186; 92950; 93005; 94640; 94760; G0378; G0480; J0171; J0295; J0456; J0692; J0696; J1630; J1644; J1815; J1940; J2920; J7030; J7050; U0003; U0003-CS